=== PATIENT | female | born 1930 | race Caucasian/White ===

== ENCOUNTER 2016-07-27 17:23 | Emergency (ER) | payer MEDICARE ==
[2016-07-27 19:57] LABS: Hematocrit 32 % (35-47); Hemoglobin 10.5 g/dl (12.0-16.0); Mean Corpuscular HGB Conc 33 g/dl (31-36); Mean Corpuscular Hemoglobin 34 pg (27-31); Mean Corpuscular Volume 103 fL (80-97); Mean Platelet Volume 8 um3 (7.4-10.4); Red Blood Count 3.06 10^6/ul (4.0-5.4); Red Cell Distribution Width 17 % (10.5-15); White Blood Count 9.3 10^3/ul (3.5-10.8)
[2016-07-27 20:18] LABS: Albumin 3.9 g/dL (3.2-5.2); BUN/Creatinine Ratio 34.3 (8-20); Calcium 9.4 mg/dL (8.6-10.3); EGFR African American 68.4 (>60); EGFR Non-African American 53.2 (>60); Globulin 2.9 g/dL (2-4); Total Bilirubin 0.9 mg/dL (0.2-1.0); Total Protein 6.8 g/dL (6.4-8.9)
[2016-07-27] MEDS ORDERED: Phytonadione INJ (Adult)* 1 MG in NS 0.9% 50 ML* 50 ML IV ONE (20:25)
--- NOTE | 2016-07-27 21:16 | ED ---
Han Moreno Billy, scribed for Cortez Muñiz MD on 07/27/16 at 1920 . Complex/Multi-Sys Presentation - HPI Summary HPI Summary: Patient is an 85 year-old female coming to [facility] by Dr. Flores for evaluation of an INR of 9.2. She denies any active bleeding at this time. In fact, she denies any pain or symptoms at this time in the ED. She states that she recently switched from Xarelto to Coumadin after a DVT was discovered in her LLE in April 2016. - History Of Current Complaint Chief Complaint: EDGeneral Time Seen by Provider: 07/27/16 19:17 Hx Obtained From: Patient Onset/Duration: Gradual Onset Timing: Constant Severity Currently: Moderate Severity Initially: Moderate Location: Negative Aggravating Factor(s): n/a Alleviating Factor(s): n/a - Allergies/Home Medications Allergies/Adverse Reactions: Allergies Allergy/AdvReac Type Severity Reaction Status Date / Time Nitrofurantoin Allergy Intermediate headaches Verified 06/17/16 16:31 Ciprofloxacin [From Cipro] Allergy Mild STOMACH Verified 06/17/16 16:31 ACHES Metronidazole Allergy Mild STOMACH Verified 06/17/16 16:31 ACHES Benzalkonium Chloride Allergy Unknown Verified 06/17/16 16:31 [From Lumigan] Reaction Details Bimatoprost [From Lumigan] Allergy Unknown Verified 06/17/16 16:31 Reaction Details Lactose Intolerance Allergy GI Upset Verified 06/17/16 16:31 Levofloxacin [From Levaquin] Allergy Unknown Verified 06/17/16 16:31 Reaction Details Sulfa Drugs Allergy Unknown Verified 06/17/16 16:31 Reaction Details PMH/Surg Hx/FS Hx/Imm Hx Endocrine/Hematology History: Reports: Hx Thyroid Disease Cardiovascular History: Reports: Hx Auto Implanted Cardiovert Defib, Hx Congestive Heart Failure - 06/18/16 admission, Hx Hypertension, Hx Pacemaker/ICD , Other Cardiovascular Problems/Disorders - A-fib Respiratory History: Reports: Hx Asthma, Hx Chronic Obstructive Pulmonary Disease (COPD), Hx Pneumonia GI History: Reports: Hx Diverticulosis, Hx Gastroesophageal Reflux Disease, Hx Irritable Bowel Musculoskeletal History: Reports: Hx Back Problems - General aches, Hx Osteoporosis Sensory History: Reports: Hx Cataracts, Hx Contacts or Glasses - PT STATES LEGALLY BLIND, Hx Legally Blind, Hx Deafness, Hx Hearing Aid, Hx Hearing Problem , Other Sensory Impairments - hx retinal detachment Opthamlomology History: Reports: Hx Cataracts, Hx Contacts or Glasses - PT STATES LEGALLY BLIND, Hx Legally Blind, Other Sensory Impairments - hx retinal detachment Neurological History: Reports: Other Neuro Impairments/Disorders - CVA 2005 - Cancer History Cancer Type, Location 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 BREAST BIOPSY x2, c-secton, hysterectomy , ICD, appe - Surgical History Surgery Procedure, Year, and Place: Hysterectomy. skin ca excision nose. Breast bx pt has a [id number]. bunion surgery. cataract surgery Infectious Disease History: No Infectious Disease History: Denies: Traveled Outside the [place] in Last 30 Days - Family History Known Family History: Positive: Cardiac Disease - Social History Alcohol Use: None Substance Use Type: Reports: None Smoking Status (MU): Former Smoker Type: Cigarettes Amount Used/How Often: 1 PPD Length of Time of Smoking/Using Tobacco: 35 Have You Smoked in the Last Year: No Review of Systems Negative: Fever Negative: Chest Pain Negative: Abdominal Pain All Other Systems Reviewed And Are Negative: Yes Physical Exam - Summary Physical Exam Summary: VITAL SIGNS: Reviewed. GENERAL: Patient is a well developed and nourished femalewho is lying comfortable in the stretcher. Patient is not in any acute respiratory distress. HEAD AND FACE: No signs of trauma. No ecchymosis, hematomas or skull depressions. No sinus tenderness. EYES: PERRLA, EOMI x 2, No injected conjunctiva, no nystagmus. EARS: Hearing grossly intact. Ear canals and tympanic membranes are within normal limits. MOUTH: Oropharynx within normal limits. NECK: Supple, trachea is midline, no adenopathy, no JVD, no carotid bruit, no c- spine tenderness, neck with full ROM. CHEST: Symmetric, no tenderness at palpation LUNGS: Clear to auscultation bilaterally. No wheezing or crackles. CVS: Regular rate and rhythm, S1 and S2 present, no murmurs or gallops appreciated. ABDOMEN: Soft, non-tender. No signs of distention. No rebound no guarding, and no masses palpated. Bowel sounds are normal. EXTREMITIES: FROM in all major joints, no edema, no cyanosis or clubbing. NEURO: Alert and oriented x 3. No acute neurological deficits. Speech is normal and follows commands. SKIN: Dry and warm, no ecchymosis, no hematomas, no petechia, no signs of bleeding. Triage Information Reviewed: Yes Vital Signs On Initial Exam: Initial Vitals Temp Pulse Resp BP Pulse Ox 97.9 F 128 20 150/75 98 07/27/16 17:53 07/27/16 17:53 07/27/16 17:53 07/27/16 17:53 07/27/16 17:53 Vital Signs Reviewed: Yes Diagnostics - Vital Signs Vital Signs Temp Pulse Resp BP Pulse Ox 07/27/16 18:45 98.3 F 87 20 154/105 96 07/27/16 17:53 97.9 F 128 20 150/75 98 - Laboratory Result Diagrams: 07/27/16 19:35 07/27/16 19:35 Lab Statement: Any lab studies that have been ordered have been reviewed, and results considered in the medical decision making process. Complex Multi-Symp Course/Dx Assessment/Plan: Patient is an 85 year-old female coming to [facility] by Dr. Flores for evaluation of an INR of 9.2. She denies any active bleeding at this time. In fact, she denies any pain or symptoms at this time in the ED. She states that she recently switched from Xarelto to Coumadin after a DVT was discovered in her LLE in April 2016. Test results shows INR of 9.5, H&H of 10.5/32. I discussed the csae with Dr. Flores and she recommends that the patient be given vitamin K 1 mg IV, and since she does not have any signs of bleeding, ecchymosis, hematomas, the patient will be discharged home to follow up with PCP. She is to follow up tomorrow tih Dr. Flores. She is A&Ox3. She was given instructions to return to the ED if she develops any bleeding sites, ecchymosis, BBPR, epistaxis. She understands and agrees. - Diagnoses Differential Diagnoses/HQI/PQRI: Other - Toxic INR, Ecchymosis, bleeding sites Provider Diagnoses: Elevated INR - Physician Notifications Discussed Care Of Patient With: Dr. Flores (hematology) @ 1925: Discharge - Discharge Plan Condition: Stable Disposition: HOME Patient Education Materials: Elevated INR (ED) Referrals: Glenys Das MD [Primary Care Provider] - Susannah Flores MD [Medical Doctor] - The documentation as recorded by the sunilibHan zavala Billy accurately reflects the service I personally performed and the decisions made by me, Cortez Muñiz MD.
[2016-07-27 21:34] VITALS: BP 190/93
== END 2016-07-27 21:50 | disposition home or self-care (01) ==
LOC: ED 17:23
DX: R79.1 Abnormal coagulation profile (principal); Z88.1 Allergy status to other antibiotic agents; J44.9 Chronic obstructive pulmonary disease, unspecified; J45.909 Unspecified asthma, uncomplicated; K21.9 Gastro-esophageal reflux disease without esophagitis; I50.9 Heart failure, unspecified; Z95.810 Presence of automatic (implantable) cardiac defibrillator; I10 Essential (primary) hypertension; I48.91 Unspecified atrial fibrillation; H54.8 Legal blindness, as defined in USA; Z86.73 Personal history of transient ischemic attack (TIA), and cerebral infarction without residual deficits; Z87.891 Personal history of nicotine dependence; Z79.01 Long term (current) use of anticoagulants; Z86.718 Personal history of other venous thrombosis and embolism
CPT/HCPCS: 36415; 80053; 81003; 85025; 85610; 96360; 99283; J3430

== ENCOUNTER 2016-11-28 07:19 | Observation (INO) | payer MEDICARE ==
[2016-11-28 08:20] LABS: Hematocrit 37 % (35-47); Hemoglobin 12.3 g/dl (12.0-16.0); Mean Corpuscular HGB Conc 33 g/dl (31-36); Mean Corpuscular Hemoglobin 31 pg (27-31); Mean Corpuscular Volume 93 fL (80-97); Mean Platelet Volume 8 um3 (7.4-10.4); Red Blood Count 4.03 10^6/ul (4.0-5.4); Red Cell Distribution Width 16 % (10.5-15); White Blood Count 6.1 10^3/ul (3.5-10.8)
[2016-11-28 08:33] LABS: Albumin 3.7 g/dL (3.2-5.2); BUN/Creatinine Ratio 23.6 (8-20); Calcium 9.3 mg/dL (8.6-10.3); EGFR African American 98.5 (>60); EGFR Non-African American 76.6 (>60); Magnesium 2.2 mg/dL (1.9-2.7); Potassium 3.9 mmol/L (3.5-5.0); Total Protein 7.2 g/dL (6.4-8.9)
[2016-11-28 08:34] LABS: Globulin 3.5 g/dL (2-4); Total Bilirubin 0.5 mg/dL (0.2-1.0); Troponin I 0.02 ng/mL (<0.04)
[2016-11-28] MEDS ORDERED: Labetalol IV* 5 MG/ML 20 ML VIAL IV PUSH ONE (08:44)
--- NOTE | 2016-11-28 08:51 | RAD ---
Indication: Dizziness especially when standing. Scheduled for pacemaker replacement. Congestive heart failure. Atrial fibrillation. COPD. Comparison: June 17, 2016 CT. October 03, 2014 chest radiograph. Technique: Sitting AP and lateral chest views. Report: Elevated lung volumes with increased AP thoracic diameter and flattening of the hemidiaphragms. Coarse interstitial markings with patchy mid to upper lung zone rarefaction. Thickened peripheral interlobular septa and trace fluid in the RIGHT minor fissure. Unchanged bilateral apical pleural-parenchymal scarring. Negative for pneumothorax. RIGHT atrial and RIGHT ventricular level pacemaker leads. Cardiomegaly. Mildly prominent central pulmonary vasculature. IMPRESSION: The constellation of findings is consistent with mild to moderate interstitial edema superimposed on chronic obstructive pulmonary disease.
[2016-11-28 08:59] LABS: TSH (Thyroid Stimulating Horm) 2.86 mcIU/mL (0.34-5.60)
--- NOTE | 2016-11-28 09:14 | RAD ---
INDICATION: Dizziness COMPARISON: CT brain May 31, 2006 TECHNIQUE: Noncontrast axial source images were acquired from the skull base to the vertex. FINDINGS: Ventricles/sulci: There is advanced cortical atrophy with compensatory dilatation of the CSF spaces. Brain parenchyma: There is periventricular and subcortical white matter change compatible with chronic ischemia. Intracranial hemorrhage:None. Extra-axial spaces: There are no abnormal extra axial fluid collections or evidence of extra-axial mass. Calvarium: There is no calvarial fracture or other calvarial abnormality. Scalp: There is no evidence of scalp or extracalvarial soft tissue abnormality. Paranasal sinuses/mastoid: The paranasal sinuses and mastoid air cells are clear. Other: None. IMPRESSION: CORTICAL ATROPHY WITH CHRONIC MICROVASCULAR ISCHEMIC CHANGES. NO ACUTE FINDINGS.
[2016-11-28] MEDS ORDERED: Meclizine TAB* 12.5 MG PO ONE (09:22)
[2016-11-28 09:27] LABS: Urine Bilirubin Negative (Negative); Urine Glucose Negative (Negative); Urine Nitrite Negative (Negative)
[2016-11-28] MEDS ORDERED: Furosemide IV* 10 MG/ML 2 ML VIAL (20 MG) IV ONE ×2 (10:30→11:23)
--- NOTE | 2016-11-28 10:31 | ED ---
Manuel Moreno SooYoung, scribed for Cortez Muñiz MD on 11/28/16 at 0727 . Dizziness - HPI Summary HPI Summary: A 86 y/o F COCO presents to ED with c/o dizziness last night before going to sleep, when she woke up, she had trouble getting up due to the dizziness. Denies CP, SOB, weakness, palpitations different from baseline. She states it doesn't feel like vertigo which she's experienced previously. Pt is legally blind. Pt is scheduled to have a new battery placed in her pacemaker with Dr. Lee this AM at 0830. - History Of Current Complaint Chief Complaint: EDDizziness Stated Complaint: DIZZY Time Seen by Provider: 11/28/16 07:21 Hx Obtained From: Patient Onset/Duration: Still Present Timing: Constant Severity Initially: Moderate Severity Currently: Moderate Character: Dizzy Associated Signs And Symptoms: Negative: Chest Pain, SOB, Palpitations - Allergies/Home Medications Allergies/Adverse Reactions: Allergies Allergy/AdvReac Type Severity Reaction Status Date / Time Nitrofurantoin Allergy Intermediate headaches Verified 06/17/16 16:31 Ciprofloxacin [From Cipro] Allergy Mild STOMACH Verified 06/17/16 16:31 ACHES Metronidazole Allergy Mild STOMACH Verified 06/17/16 16:31 ACHES Benzalkonium Chloride Allergy Unknown Verified 06/17/16 16:31 [From Lumigan] Reaction Details Bimatoprost [From Lumigan] Allergy Unknown Verified 06/17/16 16:31 Reaction Details Brimonidine Allergy Unknown Verified 11/25/16 14:03 Reaction Details Lactose Intolerance Allergy GI Upset Verified 06/17/16 16:31 Levofloxacin [From Levaquin] Allergy Unknown Verified 06/17/16 16:31 Reaction Details Sulfa Drugs Allergy Unknown Verified 06/17/16 16:31 Reaction Details Temazepam [From Restoril] Allergy Unknown Verified 11/25/16 14:03 Reaction Details Tramadol Allergy Unknown Verified 11/25/16 14:03 Reaction Details Amoxicillin AdvReac Intermediate Diarrhea Verified 11/25/16 14:03 Rivaroxaban [From Xarelto] AdvReac See Comment Verified 11/25/16 14:03 Home Medications: Home Medications Timolol 0.5% OPTH.JOSÉ MIGUEL* [Timoptic 0.5% Opth*] 1 drop RIGHT EYE BEDTIME 11/28/16 [ History Confirmed 11/28/16] PMH/Surg Hx/FS Hx/Imm Hx Previously Healthy: No Endocrine/Hematology History: Reports: Hx Thyroid Disease Cardiovascular History: Reports: Hx Auto Implanted Cardiovert Defib, Hx Congestive Heart Failure - 06/18/16 admission, Hx Hypertension, Hx Pacemaker/ICD , Other Cardiovascular Problems/Disorders - A-fib Respiratory History: Reports: Hx Asthma, Hx Chronic Obstructive Pulmonary Disease (COPD), Hx Pneumonia GI History: Reports: Hx Diverticulosis, Hx Gastroesophageal Reflux Disease, Hx Irritable Bowel Musculoskeletal History: Reports: Hx Back Problems - General aches, Hx Osteoporosis Sensory History: Reports: Hx Cataracts, Hx Contacts or Glasses - PT STATES LEGALLY BLIND, Hx Legally Blind, Hx Deafness, Hx Hearing Aid, Hx Hearing Problem , Other Sensory Impairments - hx retinal detachment Opthamlomology History: Reports: Hx Cataracts, Hx Contacts or Glasses - PT STATES LEGALLY BLIND, Hx Legally Blind, Other Sensory Impairments - hx retinal detachment Neurological History: Reports: Other Neuro Impairments/Disorders - CVA 2005 - Cancer History Cancer Type, Location 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 BREAST BIOPSY x2, c-secton, hysterectomy , ICD, appe - Surgical History Surgery Procedure, Year, and Place: Hysterectomy. skin ca excision nose. Breast bx pt has a [id number]. bunion surgery. cataract surgery Infectious Disease History: Denies: Traveled Outside the [place] in Last 30 Days - Family History Known Family History: Positive: None, Cardiac Disease - Social History Occupation: Retired Lives: With Family Alcohol Use: None Hx Substance Use: No Substance Use Type: Reports: None Hx Tobacco Use: Yes Smoking Status (MU): Former Smoker Type: Cigarettes Amount Used/How Often: 1 PPD Length of Time of Smoking/Using Tobacco: 35 Have You Smoked in the Last Year: No Review of Systems Negative: Palpitations, Chest Pain Negative: Shortness Of Breath Neurological: Other - pos: dizziness Negative: Weakness All Other Systems Reviewed And Are Negative: Yes Physical Exam - Summary Physical Exam Summary: VITAL SIGNS: Reviewed. GENERAL: Patient is a well-developed and nourished, female who is lying comfortable in the stretcher. Patient is not in any acute respiratory distress. HEAD AND FACE: No signs of trauma. No ecchymosis, hematomas or skull depressions. No sinus tenderness. EYES: PT IS LEGALLY BLIND EARS: Hearing grossly intact. Ear canals and tympanic membranes are within normal limits. MOUTH: Oropharynx within normal limits. NECK: Supple, trachea is midline, no adenopathy, no JVD, no carotid bruit, no c- spine tenderness, neck with full ROM. No meningeal signs, no Kernig's or Brudzinskis signs. CHEST: Symmetric, no tenderness at palpation LUNGS: Clear to auscultation bilaterally. No wheezing or crackles. CVS: IRREGULAR RHYTHM, RATE CONTROLLED, S1 and S2 present, no murmurs or gallops appreciated. EXTREMITIES: FROM in all major joints, no edema, no cyanosis or clubbing. NEURO: Alert and oriented x 3. No acute neurological deficits. Speech is normal and follows commands. SKIN: Dry and warm Triage Information Reviewed: Yes Vital Signs On Initial Exam: Initial Vitals Temp Pulse Resp BP Pulse Ox 98.2 F 80 20 165/113 91 11/28/16 07:24 11/28/16 07:24 11/28/16 07:24 11/28/16 07:24 11/28/16 07:24 Vital Signs Reviewed: Yes Diagnostics - Vital Signs Vital Signs Temp Pulse Resp BP Pulse Ox 11/28/16 10:00 91 18 93 11/28/16 09:30 96 20 143/93 92 11/28/16 09:03 99 22 85 11/28/16 08:42 87 18 91 11/28/16 08:22 91 171/117 11/28/16 07:41 98.2 F 80 20 165/113 90 11/28/16 07:24 98.2 F 80 20 165/113 91 - Laboratory Lab Results: Lab Results 11/28/16 11/28/16 11/28/16 Range/Units 08:05 08:05 08:05 WBC 6.1 (3.5-10.8) 10^3/ul RBC 4.03 (4.0-5.4) 10^6/ul Hgb 12.3 (12.0-16.0) g/dl Hct 37 (35-47) % MCV 93 (80-97) fL MCH 31 (27-31) pg MCHC 33 (31-36) g/dl RDW 16 H (10.5-15) % Plt Count 189 (150-450) 10^3/ul MPV 8 (7.4-10.4) um3 Neut % (Auto) 68.5 (38-83) % Lymph % (Auto) 19.5 L (25-47) % Mcmullen % (Auto) 10.5 H (1-9) % Eos % (Auto) 0.9 (0-6) % Baso % (Auto) 0.6 (0-2) % Absolute Neuts (auto) 4.2 (1.5-7.7) 10^3/ul Absolute Lymphs (auto) 1.2 (1.0-4.8) 10^3/ul Absolute Monos (auto) 0.6 (0-0.8) 10^3/ul Absolute Eos (auto) 0.1 (0-0.6) 10^3/ul Absolute Basos (auto) 0 (0-0.2) 10^3/ul Absolute Nucleated RBC 0.01 10^3/ul Nucleated RBC % 0.2 INR (Anticoag Therapy) (0.89-1.11) Sodium 139 (133-145) mmol/L Potassium 3.9 (3.5-5.0) mmol/L Chloride 108 (101-111) mmol/L Carbon Dioxide 27 (22-32) mmol/L Anion Gap 4 (2-11) mmol/L BUN 17 (6-24) mg/dL Creatinine 0.72 (0.51-0.95) mg/dL Est GFR ( Amer) 98.5 (>60) Est GFR (Non-Af Amer) 76.6 (>60) BUN/Creatinine Ratio 23.6 H (8-20) Glucose 103 H (70-100) mg/dL Lactic Acid 0.7 (0.5-2.0) mmol/L Calcium 9.3 (8.6-10.3) mg/dL Magnesium 2.2 (1.9-2.7) mg/dL Total Bilirubin 0.50 (0.2-1.0) mg/dL AST 19 (13-39) U/L ALT 14 (7-52) U/L Alkaline Phosphatase 69 (34-104) U/L Troponin I 0.02 (<0.04) ng/mL B-Natriuretic Peptide ( - 100) pg/mL Total Protein 7.2 (6.4-8.9) g/dL Albumin 3.7 (3.2-5.2) g/dL Globulin 3.5 (2-4) g/dL Albumin/Globulin Ratio 1.1 (1-3) TSH 2.86 (0.34-5.60) mcIU/mL Urine Color Urine Appearance Urine pH (5-9) Ur Specific [place] (1.010-1.030) Urine Protein (Negative) Urine Ketones (Negative) Urine Blood (Negative) Urine Nitrate (Negative) Urine Bilirubin (Negative) Urine Urobilinogen (Negative) Ur Leukocyte Esterase (Negative) Urine Glucose (Negative) 11/28/16 11/28/16 11/28/16 Range/Units 08:05 08:05 09:14 WBC (3.5-10.8) 10^3/ul RBC (4.0-5.4) 10^6/ul Hgb (12.0-16.0) g/dl Hct (35-47) % MCV (80-97) fL MCH (27-31) pg MCHC (31-36) g/dl RDW (10.5-15) % Plt Count (150-450) 10^3/ul MPV (7.4-10.4) um3 Neut % (Auto) (38-83) % Lymph % (Auto) (25-47) % Mcmullen % (Auto) (1-9) % Eos % (Auto) (0-6) % Baso % (Auto) (0-2) % Absolute Neuts (auto) (1.5-7.7) 10^3/ul Absolute Lymphs (auto) (1.0-4.8) 10^3/ul Absolute Monos (auto) (0-0.8) 10^3/ul Absolute Eos (auto) (0-0.6) 10^3/ul Absolute Basos (auto) (0-0.2) 10^3/ul Absolute Nucleated RBC 10^3/ul Nucleated RBC % INR (Anticoag Therapy) 2.63 H (0.89-1.11) Sodium (133-145) mmol/L Potassium (3.5-5.0) mmol/L Chloride (101-111) mmol/L Carbon Dioxide (22-32) mmol/L Anion Gap (2-11) mmol/L BUN (6-24) mg/dL Creatinine (0.51-0.95) mg/dL Est GFR ( Amer) (>60) Est GFR (Non-Af Amer) (>60) BUN/Creatinine Ratio (8-20) Glucose (70-100) mg/dL Lactic Acid (0.5-2.0) mmol/L Calcium (8.6-10.3) mg/dL Magnesium (1.9-2.7) mg/dL Total Bilirubin (0.2-1.0) mg/dL AST (13-39) U/L ALT (7-52) U/L Alkaline Phosphatase (34-104) U/L Troponin I (<0.04) ng/mL B-Natriuretic Peptide 410 H ( - 100) pg/mL Total Protein (6.4-8.9) g/dL Albumin (3.2-5.2) g/dL Globulin (2-4) g/dL Albumin/Globulin Ratio (1-3) TSH (0.34-5.60) mcIU/mL Urine Color Straw Urine Appearance Clear Urine pH 7.0 (5-9) Ur Specific [place] 1.008 L (1.010-1.030) Urine Protein Negative (Negative) Urine Ketones Negative (Negative) Urine Blood Negative (Negative) Urine Nitrate Negative (Negative) Urine Bilirubin Negative (Negative) Urine Urobilinogen Negative (Negative) Ur Leukocyte Esterase Negative (Negative) Urine Glucose Negative (Negative) Result Diagrams: 11/28/16 08:05 11/28/16 08:05 Lab Statement: Any lab studies that have been ordered have been reviewed, and results considered in the medical decision making process. - Radiology CXR Xray Interpretation: No Acute Changes - IMPRESSION: The constellation of findings is consistent with mild to moderate interstitial edema superimposed on chronic obstructive pulmonary disease. Radiology Interpretation Completed By: Radiologist - CT BRAIN CT CT Interpretation: No Acute Changes - IMPRESSION: CORTICAL ATROPHY WITH CHRONIC MICROVASCULAR ISCHEMIC CHANGES. NO ACUTE FINDINGS. CT Interpretation Completed By: Radiologist - EKG 1 Cardiac Rate: NL - 94 bpm EKG Rhythm: Atrial Fibrillation EKG Interpretation: read at 0726 EKG Comparison: No Significant Change - unchanged from 06/19/16 Dizzy Course/Dx - Course Assessment/Plan: A 86 y/o F BIBA presents to ED with c/o dizziness last night before going to sleep, when she woke up, she had trouble getting up due to the dizziness. Denies CP, SOB, weakness, palpitations different from baseline. She states it doesn't feel like vertigo which she's experienced previously. Pt is legally blind. Pt is scheduled to have a new battery placed in her pacemaker with Dr. Lee this AM at 0830. Blood work was WNL except slightly elevated glucose and BNP. UA shows no UTI. Head CT shows no intracranial pathology. CXR shows slight interstitial edema. BNP is slightly elevated. She was given Lasix. In ED, pt was hypertensive, pt given Labetalol. Orthostsatics are negative, however, when pt tries to get up, pt continues to have same symptoms. Pt was unable to ambulate, therefore discussed PE and findings with Dr. Jenkins, hospitalist, who accepted pt for admission. Pt is hemodynamically stable and A& Ox3. - Diagnoses Provider Diagnoses: CHF (congestive heart failure), intractable dizziness - Provider Notifications Discussed Care Of Patient With: Dr. Lee - cardio Time Discussed With Above Provider: 08:00 Instructed by Provider To: Other - do work-up, if nml, send for battery replacement Discharge - Discharge Plan Condition: Stable Disposition: ADMITTED TO [facility] Referrals: Glenys Das MD [Primary Care Provider] - Consult Consult: [phone]: Spoke to Dr. Jenkins, hospitalist Will accept for admission. The documentation as recorded by the Manuel traylor SooYoung accurately reflects the service I personally performed and the decisions made by me, Cortez Muñiz MD.
[2016-11-28] MEDS: Diltiazem CD CAP* 180 MG PO SCH (10:55)
[2016-11-28] MEDS ORDERED: Acetaminophen TAB* 325 MG PO PRN (11:03)
[2016-11-28] MEDS ORDERED: NS 0.9% 1000 ML* 1,000 ML IV SCH (11:15)
[2016-11-28] MEDS: Meclizine TAB* 12.5 MG PO SCH ×2 (12:20→21:04)
--- NOTE | 2016-11-28 15:13 | ECHO ---
Patient: SHERIF BALLESTEROS [facility] Rec#: [id number] : 1930 Date: 11/28/2016 Age: 86y Height: 157.5 cm / 62.0 in Weight: 53.1 kg / 117.0 lbs Sex: F BSA: 1.5 Room#: 433 Admit Date#: 11/28/2016 Type: Inpatient Referring: Theresa Jenkins MD Reading: Golden Lee MD [employer] Feeder: Elizabeth Kc RN RDCS CC: SADIQ MCCLENDON CC: Vijay Paula MD Transthoracic Echocardiogram Indication: CHF BP: 143/93 HR: 80 Rhythm: A-Fib Findings History: Afib, pacemaker, HTN, HLD, DVT, CVA, COPD Technical Comments: The study quality is fair. The study is technically limited due to the patient's history of COPD. Completed at 1455. Left Ventricle: The left ventricular chamber size is normal. Mild concentric left ventricular hypertrophy is observed. There is global hypokinesis of the left ventricle with minor regional variation. There is mildly decreased left ventricular systolic function. The estimated ejection fraction is 45-50%. There is a left ventricular septal wall motion abnormality observed, possibly due to the presence of a left bundle branch block. There is no consistent Doppler evidence of clinically significant diastolic dysfunction. Left Atrium: The left atrium is mildly dilated. Right Ventricle: The right ventricular cavity size is normal. The right ventricular global systolic function is normal. A pacemaker wire is visualized in the right ventricle. Right Atrium: The right atrial cavity size is normal. A pacemaker wire is visualized in the right atrium. Aortic Valve: The aortic valve is trileaflet. The aortic valve leaflets are mildly thickened. There is moderate thickening of the right coronary cusp. Systolic excursion of the right coronary cusp is reduced. There is no evidence of aortic regurgitation. There is mild to moderate aortic stenosis. The mean gradient of the aortic valve is 8 mmHg. The aortic valve area, by peak velocities, is calculated at 1.1 cm2. Mitral Valve: The mitral valve leaflets are mildly thickened. There is trace to mild mitral regurgitation. There is no evidence of mitral stenosis. Tricuspid Valve: The tricuspid valve leaflets are normal. There is trace to mild tricuspid regurgitation. No pulmonary hypertension is noted. Pulmonic Valve: The pulmonic valve structure is not well visualized. There is mild pulmonic regurgitation. There is no pulmonic stenosis. Pericardium: There is no significant pericardial effusion. A pericardial fat pad is visualized. Aorta: There is no dilatation of the ascending aorta. There is no dilatation of the aortic arch. There is no dilation of the aortic root. Pulmonary Artery: The main pulmonary artery is not well visualized. Venous: The inferior vena cava appears normal in size. There is a greater than 50% respiratory change in the inferior vena cava dimension. Summary: There are no significant changes when compared to the previous study done on 06/21/16 Conclusions Mild concentric left ventricular hypertrophy is observed. There is global hypokinesis of the left ventricle with minor regional variation. The estimated ejection fraction is 45-50%. There is a left ventricular septal wall motion abnormality observed, possibly due to the presence of a left bundle branch block. A pacemaker wire is visualized in the right ventricle. The aortic valve leaflets are mildly thickened. There is mild to moderate aortic stenosis. The mean gradient of the aortic valve is 8 mmHg. There is trace to mild mitral regurgitation. There is trace to mild tricuspid regurgitation. There is no significant pericardial effusion. Measurements Name Value Normal Range RVDdMajor (2D) 3.4 cm (2.2 - 4.4) RAd ISD 4CH 4.9 cm (3.4 - 4.9) RA (A4C)W 4 cm (2.9 - 4.6) IVSd (2D) 1.2 cm (0.6 - 1) LVPWd (2D) 1.1 cm (0.6 - 1) LVIDd (2D) 3.7 cm (3.6 - 5.4) LVIDs (2D) 2.3 cm - LV FS (2D) 38 % (25 - 45) Aortic Annulus 2 cm (1.4 - 2.6) Ao root diameter (2D) 2.8 cm (2.1 - 3.5) Ascending Ao 2.8 cm (2.1 - 3.4) Aortic arch 2 cm (1.8 - 3.4) LA dimension (AP) 2D 3.2 cm (2.3 - 3.8) LAd ISD 4CH 5.4 cm (2.9 - 5.3) LA ISD 4CH W 4 cm (2.5 - 4.5) Name Value Normal Range LA ESV SP 4CH (A/L) 45 ml - LA ESV SP 2CH (A/L) 42 ml - LA ESV BP (A/L) 45 ml - LA ESV BP (A/L) index 29.8 ml/m2 - LA ESV SP 4CH (MOD) 42 ml - LA ESV SP 2CH (MOD) 40.5 ml - Name Value Normal Range MV E-wave Vmax 0.84 m/sec - MV deceleration time 192 msec - LV septal e' Vmax 0.05 m/sec - LV lateral e' Vmax 0.07 m/sec - LV E:e' septal ratio 16.8 ratio - LV E:e' lateral ratio 12 ratio - Name Value Normal Range AV Vmax 1.8 m/sec - AV VTI 33.4 cm - AV peak gradient 13 mmHg - AV mean gradient 8 mmHg - LVOT diameter 1.9 cm - LVOT Vmax 0.69 m/sec - LVOT VTI 11.8 cm - LVOT peak gradient 2 mmHg - LVOT mean gradient 1 mmHg - DOI (VTI) 0.35 ratio - DOI (Vmax) 0.38 ratio - FRANKY (continuity Vmax) 1.1 cm2 - FRANKY (continuity VTI) 1 cm2 - JANENE Vmax 0.75 m/sec - Name Value Normal Range TR Vmax 2.4 m/sec - TR peak gradient 23 mmHg - RAP 3 mmHg - RVSP 26 mmHg - IVC diameter 1.4 cm - Name Value Normal Range PV Vmax 0.75 m/sec -
--- NOTE | 2016-11-28 16:00 | HP ---
HISTORY AND PHYSICAL:* ADDENDUM: DATE OF ADMISSION: 11/28/16 Please note that after discussing possibility of stress test with the patient, the patient stated that she had a recent stress test within the past 2 to [address] Lee's office. We are in the process of requesting the stress test results, but as per the patient, it was "good." At this point, we will not plan to get the patient through a stress test tomorrow. [id number]/[facility] #: [id number] ISHAN
--- NOTE | 2016-11-28 16:41 | HP ---
ADDENDUM NOW INCLUDED ON THIS REPORT HISTORY AND PHYSICAL: DATE OF ADMISSION: 11/28/16 PRIMARY CARE PHYSICIAN: Dr. Das. CHIEF COMPLAINT: Dizziness. HISTORY OF PRESENT ILLNESS: Betty Holloway is an 86-year-old female with a history of atrial fibrillation, status post pacemaker placement, on Coumadin as well as with a history of DVT, who also has a history of benign positional vertigo, who presented today complaining of dizziness and generalized weakness. The patient stated that she felt dizzy last night, and today in the middle of the night, she was dizzy to the point that she was too weak to get up to go to the bathroom and her had to carry her. The patient is very nonspecific in describing her "dizziness." She stated that it occurs only when she moves or stands up and it is worse with movement. She stated that the room is not spinning, but she feels lightheaded. When she presented to the ED, she was hypertensive with systolic blood pressure in the 180s. Nevertheless, she still continued to experience dizziness. She did not have lower blood pressure when standing up or sitting up that would be positive for orthostasis. She is going to be placed in overnight observation with diagnosis of dizziness. PAST MEDICAL HISTORY: 1. History of CVA in 2016 with no residual deficits. 2. The patient is legally blind, and she can see her arm and her vision is very blurry. 3. Hypertension. 4. DVT. 5. History of atrial fibrillation as well as status post pacemaker placement. 6. Dyslipidemia. 7. Hypothyroidism. 8. Pulmonary nodules, followed by Pulmonology. 9. History of benign breast biopsy. 10. Hysterectomy. 11. Appendectomy. 12. History of COPD, not on oxygen. 13. History of retinal detachment in the right eye. 14. History of glaucoma. 15. History of patient being hard of hearing. She uses hearing aids. MEDICATIONS: Patient's home medications include: 1. Coumadin 7.5 mg alternating with 5 mg. 2. inhalation, 1 inhalation daily. 3. Timolol eye drops 0.5% one drop right eye at bedtime. 4. Simvastatin 20 mg daily. 5. Probiotics 4 daily. 6. Dulera 200/5 two puffs b.i.d. 7. Levothyroxine 50 mcg daily. 8. Lactaid 1 tablet daily. 9. Lexapro 5 mg daily. 10. Diltiazem XT 180 mg daily. 11. Refresh Tears 1 to 2 drops both eyes p.r.n. 12. Atenolol 25 mg b.i.d. ALLERGIES: Include NITROFURANTOIN, CIPROFLOXACIN, METRONIDAZOLE, BENZALKONIUM CHLORIDE, LUMIGAN EYE DROPS, BRIMONIDINE, LEVOFLOXACIN, SULFA, TEMAZEPAM, TRAMADOL, AMOXICILLIN, XARELTO. FAMILY HISTORY: Positive for father who at a young age after a surgery for appendicitis. Mother of "old age." SOCIAL HISTORY: The patient denies any current tobacco, alcohol, or drug use. She lives with her who is her surrogate. 's first name is Raúl. The patient ambulates without support at home, and she holds onto her when she walks outside of home. REVIEW OF SYSTEMS: Please see history of present illness. The patient also noted that she had been incontinent of urine for the past 2 weeks. She denies any headache. She denies any localized focal weakness. Her speech had been fine. She has not had any recent trauma. All the remaining 14 systems were reviewed with the patient and were otherwise negative. Please note that the patient was scheduled to have her pacemaker battery replaced today with Dr. Lee, which is going to be postponed due to the current hospitalization for observation. PHYSICAL EXAMINATION GENERAL: The patient is a very pleasant 86-year-old female, who is in no acute distress. Alert, awake, and oriented x3. VITAL SIGNS: Blood pressure 143/93, heart rate of 89 and paced rhythm, respiratory rate 18, oxygen saturation 93% on room air, and temperature of 98.2. HEENT: Head is atraumatic, normocephalic. Eyes: Pupils equal and reactive to light and accommodation. Oropharynx clear. Mucosa moist. On evaluation of the patient's ears, bilateral tympanic membranes were visualized and there were no abnormalities noted. NECK: Supple. No JVD. No bruits bilaterally. RESPIRATORY: Clear to auscultation bilaterally. CARDIOVASCULAR: Irregularly irregular rhythm. No murmur. ABDOMEN: Soft, nontender. Bowel sounds present in all 4 quadrants. EXTREMITIES: There is no edema. Pulses +2 bilaterally. No clubbing or cyanosis. There is no calf tenderness on evaluation. NEUROLOGIC: Speech clear. Cranial nerves II through XII grossly intact. Motor strength is 5/5 bilaterally. The [id number] is not dysmetric. The patient has a steady gait. She is holding on to me while walking though. The gait is rather wide. There is no ataxia noted. PSYCHIATRIC: Oriented x3 with no evidence of anxiety or depression. LABORATORY DATA: Showed urinalysis is unremarkable. White blood cell count 6.1, hemoglobin 12.3, hematocrit of 37, and platelets of 189. Sodium 139, potassium 3.9, chloride 108, carbon dioxide 27, BUN of 17, creatinine 0.72. Liver function tests were unremarkable. Troponin of 0.02. TSH of 2.8. Brain natriuretic peptide was 410. INR of 2.6. CT of the brain. Impression: "atrophy with microvascular ischemic changes. No active findings." Chest x-ray. Impression: "The patient's findings consistent with mild-to- moderate interstitial edema, superimposed on chronic obstructive pulmonary disease." The patient's EKG showed atrial fibrillation with a heart rate of 94 beats per minute with left bundle-branch block. The left bundle-branch block is new comparing with prior EKGs. The patient's troponin was 0.02 and brain natriuretic peptide was 510. ASSESSMENT AND PLAN: An 86-year-old female with a history of atrial fibrillation, status post pacemaker placement that is due for replacement. The patient presents with dizziness. She also was noted to desaturate with oxygen levels at 88 when lying down, that improves when she sits up. She herself does not complain of chest pain or shortness of breath. On further discussion about that, the patient did note that she was taking Lasix up to a month and a half ago when Dr. Das discontinued it and recommended compression stockings for the patient. At this point, the patient appears to be in mild congestive heart failure. She already received 20 mg of IV Lasix in the ED and she is going to receive another 20 mg now. She is going to be placed on meclizine on a p.r.n. basis for the dizziness, although dizziness may be a symptom of congestive heart failure. In regards to the patient's left bundle-branch block, which is new. Currently the patient denies any problems with chest pain. I will observe her, check another troponin. If she is hemodynamically stable and feeling better, she most likely should undergo a cardiac stress in the morning. In regards to her atrial fibrillation, currently is rate controlled with atenolol and Cardizem is going to be continued. For the patient's hypothyroidism, her Synthroid is going to be continued. The patient's TSH was noted to be 2.86 today. In regards to the patient's chronic obstructive pulmonary disease exacerbation, Dulera is going to be continued. For DVT prophylaxis, the patient is going to be continued on her Coumadin. INR is currently therapeutic. In regards to the patient's code status, the patient is a full code. TIME SPENT: Approximately 75 minutes were spent on admission of this patient, more than half that time was spent [id number] with the patient during the interview and physical exam. ADDENDUM: DATE OF ADMISSION: 11/28/16 Please note that after discussing possibility of stress test with the patient, the patient stated that she had a recent stress test within the past 2 to [address] Lee's office. We are in the process of requesting the stress test results, but as per the patient, it was "good." At this point, we will not plan to get the patient through a stress test tomorrow. CC: Dr. Das; Dr. Lee; Dr. Flores * [id number]/[facility] #: [id number]/[facility] #: [id number] ISHAN
[2016-11-28] MEDS ORDERED: Warfarin TAB(*) 5 MG PO SCH (17:00)
[2016-11-28] MEDS ORDERED: Atorvastatin* 10 MG TAB PO SCH (18:00)
[2016-11-28] MEDS: Mometasone/Formoter 200/5 MDI INH SCH (19:53)
[2016-11-28] MEDS ORDERED: Timolol 0.5% OPTH.SOL* BTL RIGHT EYE SCH (21:00)
[2016-11-28] MEDS: Atenolol TAB* 25 MG PO SCH (21:03)
[2016-11-29 05:22] LABS: Hematocrit 37 % (35-47); Hemoglobin 12.2 g/dl (12.0-16.0); Mean Corpuscular HGB Conc 33 g/dl (31-36); Mean Corpuscular Hemoglobin 31 pg (27-31); Mean Corpuscular Volume 92 fL (80-97); Mean Platelet Volume 8 um3 (7.4-10.4); Red Blood Count 3.98 10^6/ul (4.0-5.4); Red Cell Distribution Width 16 % (10.5-15); White Blood Count 6.2 10^3/ul (3.5-10.8)
[2016-11-29] MEDS: Meclizine TAB* 12.5 MG PO SCH (05:23)
[2016-11-29 05:37] LABS: BUN/Creatinine Ratio 20.3 (8-20); Calcium 9.2 mg/dL (8.6-10.3); EGFR African American 95.5 (>60); EGFR Non-African American 74.2 (>60); Potassium 3.2 mmol/L (3.5-5.0)
[2016-11-29] MEDS ORDERED: Levothyroxine TAB* 50 MCG TAB PO SCH (06:00)
[2016-11-29] MEDS ORDERED: Potassium Chlor TAB* 20 MEQ TAB.ER PO ONE (07:30)
[2016-11-29] MEDS: Diltiazem CD CAP* 180 MG PO SCH (07:53)
[2016-11-29] MEDS: Atenolol TAB* 25 MG PO SCH (07:54)
[2016-11-29] MEDS: Mometasone/Formoter 200/5 MDI INH SCH (08:51)
[2016-11-29] MEDS ORDERED: Citalopram TAB* 10 MG PO SCH (09:00)
--- NOTE | 2016-11-29 12:52 | DS ---
CC: Dr. Das * DATE OF ADMISSION: 11/28/2016. DATE OF DISCHARGE: 11/29/2016. PRIMARY CARE PHYSICIAN: Dr. Das. DISCHARGING PROVIDER: GWEN Zavala. SUPERVISING PHYSICIAN: Dr. Theresa Jenkins *(dictated by GWEN Zavala). PRIMARY DISCHARGE DIAGNOSIS: Acute systolic heart failure exacerbation causing hypoxia and complaints of dizziness. SECONDARY DISCHARGE DIAGNOSES: 1. History of CVA. 2. Blindness. 3. Difficulty hearing. 4. Hypertension. 5. History of DVT. 6. Atrial fibrillation anticoagulated with Coumadin and a pacemaker in place. 7. Hyperlipidemia. 8. Hypothyroidism. DISCHARGE MEDICATIONS: 1. Atenolol 25 mg p.o. twice daily. 2. Diltiazem 180 mg p.o. daily. 3. Lexapro 5 mg p.o. daily. 4. Lasix 20 mg p.o. daily. 5. Lactase 3000 unit tablets taken prior to eating dairy products as needed. 6. Levothyroxine 50 mcg p.o. daily. 7. Dulera one puff inhaled twice daily. 8. Probiotic 4 mg p.o. daily. 9. Simvastatin 20 mg p.o. daily. 10. Timolol one drop in the right eye at bedtime. 11. Spiriva one capsule inhaled daily. 12. Coumadin 5 mg on Monday, Monday, , and Monday, and 7.5 on Monday , Monday and Monday. Medication changes: 1. Start Lasix. HOSPITAL IMAGIN. Chest x-ray shows constellation of findings consistent with mild to moderate interstitial edema superimposed on chronic obstructive pulmonary disease. 2. CT of the brain shows cortical atrophy with chronic microvascular ischemic changes, no other acute findings. 3. EKG shows atrial fibrillation with a left bundle branch block. 4. Transthoracic echocardiogram shows mild LVH with left ventricular ejection fraction of 45 to 50 percent and mild to moderate aortic stenosis. HOSPITAL COURSE: This is an 86-year-old female with a remote history of prior CVA without significant residual deficit, but legal blindness and significant difficulty hearing as well as hypertension and atrial fibrillation for which she is anticoagulated with Coumadin, hyperlipidemia, and hypothyroidism who presented to the emergency department with complaints of dizziness. The patient started feeling mildly dizzy on Monday evening, which is the day prior to admission, but then awoke her in the middle of the night feeling acutely dizzy on the date of admission. She had a difficult time describing her dizziness and it seemed to be that is was worse with moving. She describes that the room was not spinning, she simply felt lightheaded. She does have a history of vertigo and reported that these symptoms were different than her prior vertigo symptoms. Orthostatic vital signs were negative in the emergency department. Initial labs were unremarkable. CT of the brain showed no acute process. Chest x-ray, however, showed some interstitial edema and it was noted that the patient was hypoxic upon lying flat and it did seem to exacerbate her complaints of dizziness. She was subsequently admitted for what was considered to be likely a mild CHF exacerbation inducing hypoxia and subsequent complaints of dizziness. The patient was diuresed with IV Lasix. Starting several hours later, the patient noted improvement in her dizziness and remained asymptomatic overnight. Continuous telemetry monitoring demonstrated persistent A-fib, no other dysrhythmias. DISPOSITION AND FOLLOW-UP PLAN: The patient is being discharge to home where she lives with her . The patient is instructed to resume Lasix. This apparently had been discontinued about a month ago and to please follow-up with her primary care provider within a week of discharge. Also, she was provided instructions to please monitor her weight and contact her primary care provider with a change of greater than three pounds in a day or five pounds in a week. She was also scheduled for a generator change on her pacemaker with Dr. Lee for the day of admission. Dr. Lee reviewed her EKG and felt that the pacer was working appropriately and this can be rescheduled on an outpatient basis. GWEN ZAVALA [id number]/[facility] #: [id number] [facility]ENTERAidan
[2016-11-29 12:56] VITALS: BP 143/73
[2016-11-29] MEDS ORDERED: Warfarin TAB(*) 7.5 MG PO SCH (17:00)
== END 2016-11-29 14:10 | disposition home or self-care (01) ==
LOC: ED 07:19 → MEDTELE 09:33
PROVIDERS: ADMIT Internal Medicine; ATTEND Internal Medicine
DX: I50.21 Acute systolic (congestive) heart failure (principal); R09.02 Hypoxemia; H54.0 Blindness, both eyes; Z86.73 Personal history of transient ischemic attack (TIA), and cerebral infarction without residual deficits; H90.0 Conductive hearing loss, bilateral; I10 Essential (primary) hypertension; R42 Dizziness and giddiness; Z86.718 Personal history of other venous thrombosis and embolism; I48.91 Unspecified atrial fibrillation; Z79.01 Long term (current) use of anticoagulants; Z95.0 Presence of cardiac pacemaker; E78.5 Hyperlipidemia, unspecified; E03.9 Hypothyroidism, unspecified
CPT/HCPCS: 36415; 70450; 71020; 80048; 80053; 81003; 83605; 83735; 83880; 84443; 84484; 85025; 85610; 93005; 93306; 94640; 96365; 99284; A9270-GY; G0378; G8978-GP-CI; G8979-GP-CH; G8980-GP-CI; J1940

== ENCOUNTER 2017-05-29 14:51 | Inpatient (IN) | payer MEDICARE ==
[2017-05-29] MEDS ORDERED: Morphine INJ* 4 MG/ML 1 ML CARPUJECT IV ONE ×2 (15:58→16:33)
[2017-05-29] MEDS ORDERED: Ondansetron INJ* 2 MG/ML VIAL IV ONE (15:58)
[2017-05-29 16:11] LABS: Hematocrit 33 % (35-47); Hemoglobin 10.9 g/dl (12.0-16.0); Mean Corpuscular HGB Conc 33 g/dl (31-36); Mean Corpuscular Hemoglobin 31 pg (27-31); Mean Corpuscular Volume 93 fL (80-97); Mean Platelet Volume 7 um3 (7.4-10.4); Red Blood Count 3.52 10^6/ul (4.0-5.4); Red Cell Distribution Width 17 % (10.5-15); White Blood Count 9.5 10^3/ul (3.5-10.8)
[2017-05-29 16:30] LABS: Albumin 3.5 g/dL (3.2-5.2); BUN/Creatinine Ratio 19.7 (8-20); Calcium 8.9 mg/dL (8.6-10.3); EGFR African American 108.9 (>60); EGFR Non-African American 84.7 (>60); Globulin 3.6 g/dL (2-4); Magnesium 1.9 mg/dL (1.9-2.7); Potassium 3.2 mmol/L (3.5-5.0); Total Bilirubin 0.8 mg/dL (0.2-1.0); Total Protein 7.1 g/dL (6.4-8.9)
[2017-05-29] MEDS ORDERED: Potassium Chloride LIQUID* 20 MEQ PACKET PO ONE (16:34)
[2017-05-29] MEDS ORDERED: Morphine INJ* 4 MG/ML 1 ML CARPUJECT ONE (16:37)
[2017-05-29] MEDS ORDERED: LORazepam INJ* 2 MG/ML 1 ML VIAL IV PUSH ONE (17:07)
--- NOTE | 2017-05-29 17:26 | ED ---
Zhao Moreno Thomas, scribed for Emily Sanchez MD on 05/29/17 at 1558 . Back Pain - HPI Summary HPI Summary: The patient is an 86 y/o female referred to the emergency by Dr. Flores after an outpatient Urogram CT obtained on 05/29/17 shows new mild compression deformity of T12. The patient complains of mid back pain with onset 10 days ago. The pain is constant. The pain is rated 10/10. The pain is aggravated by movement and is alleviated by nothing. The patient has treated the pain with acetaminophen prior to arrival. The patient did not fall. Her last BM was yesterday when she was given an enema. Patient denies pleuritic CP, SOB, and bladder or bowel incontinence. - History of Current Complaint Chief Complaint: EDGeneral Stated Complaint: COMNPRESSION FX,UTI,SHORTNESS OF BREATH Time Seen by Provider: 05/29/17 15:07 Hx Obtained From: Patient Onset/Duration: Lasting Days - 10, Still Present, Worse Since - CT obtained today Onset/Duration: Still Present Back Pain Location: Is Discrete @ - mid back Severity Currently: Severe Pain Intensity: 10 Pain Scale Used: 0-10 Numeric Aggravating Symptom(s): Movement Alleviating Symptom(s): Nothing Associated Signs And Symptoms: Negative: Other - pleuritic CP, SOB, and bladder or bowel incontinence - Allergies/Home Medications Allergies/Adverse Reactions: Allergies Allergy/AdvReac Type Severity Reaction Status Date / Time Nitrofurantoin Allergy Intermediate headaches Verified 06/17/16 16:31 Ciprofloxacin [From Cipro] Allergy Mild STOMACH Verified 06/17/16 16:31 ACHES Metronidazole Allergy Mild STOMACH Verified 06/17/16 16:31 ACHES Benzalkonium Chloride Allergy Unknown Verified 06/17/16 16:31 [From Lumigan] Reaction Details Bimatoprost [From Lumigan] Allergy Unknown Verified 06/17/16 16:31 Reaction Details Brimonidine Allergy Unknown Verified 11/25/16 14:03 Reaction Details Lactose Intolerance Allergy GI Upset Verified 06/17/16 16:31 Levofloxacin [From Levaquin] Allergy Unknown Verified 06/17/16 16:31 Reaction Details Sulfa Drugs Allergy Unknown Verified 06/17/16 16:31 Reaction Details Temazepam [From Restoril] Allergy Unknown Verified 11/25/16 14:03 Reaction Details Tramadol Allergy Unknown Verified 11/25/16 14:03 Reaction Details Amoxicillin AdvReac Intermediate Diarrhea Verified 11/25/16 14:03 Rivaroxaban [From Xarelto] AdvReac See Comment Verified 11/25/16 14:03 PMH/Surg Hx/FS Hx/Imm Hx Previously Healthy: No Endocrine/Hematology History: Reports: Hx Thyroid Disease Cardiovascular History: Reports: Hx Atrial Fibrillation, Hx Auto Implanted Cardiovert Defib, Hx Congestive Heart Failure, Hx Hypertension, Hx Pacemaker/ICD , Other Cardiovascular Problems/Disorders - A-fib Respiratory History: Reports: Hx Asthma, Hx Chronic Obstructive Pulmonary Disease (COPD), Hx Pneumonia GI History: Reports: Hx Diverticulosis, Hx Gastroesophageal Reflux Disease, Hx Irritable Bowel Musculoskeletal History: Reports: Hx Back Problems - General aches, Hx Osteoporosis Sensory History: Reports: Hx Cataracts, Hx Contacts or Glasses, Hx Legally Blind , Hx Vision Problem, Hx Deafness, Hx Hearing Aid, Hx Hearing Problem, Other Sensory Impairments - hx retinal detachment Opthamlomology History: Reports: Hx Cataracts, Hx Contacts or Glasses, Hx Legally Blind, Hx Vision Problem, Other Sensory Impairments - hx retinal detachment Neurological History: Reports: Other Neuro Impairments/Disorders - CVA 2005 - Cancer History Cancer Type, Location 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 BREAST BIOPSY x2, c-secton, hysterectomy , ICD, appe - Surgical History Surgery Procedure, Year, and Place: Hysterectomy. skin ca excision nose. Breast bx pt has a [id number]. bunion surgery. cataract surgery Infectious Disease History: No Infectious Disease History: Denies: Traveled Outside the [place] in Last 30 Days - Family History Known Family History: Positive: Cardiac Disease - Social History Lives: With Family Alcohol Use: Daily Alcohol Amount: With dinner, 2-3 oz Hx Substance Use: No Substance Use Type: Reports: None Hx Tobacco Use: Yes Smoking Status (MU): Former Smoker Type: Cigarettes Amount Used/How Often: 1 PPD Length of Time of Smoking/Using Tobacco: 35 Have You Smoked in the Last Year: No Review of Systems Negative: Chest Pain - pleuritic Negative: Shortness Of Breath Negative: Other - bowel incontinence Negative: incontinence Positive: Other - Mid back pain All Other Systems Reviewed And Are Negative: Yes Physical Exam - Summary Physical Exam Summary: VITAL SIGNS: Reviewed. GENERAL: Patient is an elderly legally blind and hard of hearing female who is lying in the stretcher. Patient is not in any acute respiratory distress. HEAD AND FACE: No signs of trauma. No ecchymosis, hematomas or skull depressions. No sinus tenderness. EYES: She is legally blind. EARS: Hearing grossly intact. Ear canals and tympanic membranes are within normal limits. MOUTH: Oropharynx within normal limits. NECK: Supple, trachea is midline, no adenopathy, no JVD, no carotid bruit, no c- spine tenderness, neck with full ROM. CHEST: Symmetric, no tenderness at palpation LUNGS: Decreased breath sounds bilaterally. CVS: Regular rate and rhythm, S1 and S2 present, no murmurs or gallops appreciated. ABDOMEN: Soft, non-tender. The belly is moderately distended. No rebound no guarding, and no masses palpated. There are hypoactive bowel sounds. BACK: She complains of mid back pain. Positive left-leg SLR at 45 degrees and right-leg SLR at 60 degrees. EXTREMITIES: No edema, no cyanosis or clubbing. NEURO: Alert and oriented x 3. No acute neurological deficits. Speech is normal and follows commands. SKIN: Dry and warm Triage Information Reviewed: Yes Vital Signs On Initial Exam: Initial Vitals Temp Pulse Resp BP Pulse Ox 96.8 F 78 17 162/85 95 05/29/17 14:54 05/29/17 14:54 05/29/17 14:54 05/29/17 14:54 05/29/17 14:54 Vital Signs Reviewed: Yes - Serina Coma Scale Coma Scale Total: 15 Diagnostics - Vital Signs Vital Signs Temp Pulse Resp BP Pulse Ox 05/29/17 15:30 67 15 151/84 95 05/29/17 15:17 75 156/88 96 05/29/17 14:54 96.8 F 78 17 162/85 95 - Laboratory Result Diagrams: 05/29/17 15:43 05/29/17 15:43 Lab Statement: Any lab studies that have been ordered have been reviewed, and results considered in the medical decision making process. - Radiology CXR Radiology Interpretation Completed By: Radiologist - Ordered at time of admission -- see [facility] Back Pain Course/Dx - Course Course Of Treatment: In the ED course the patient was given morphine, Ativan, potassium chloride, and Zofran. The patient is diagnosed with back pain and compression fracture of T12. Dr. Fenton, hospitalist, admits the patient. - Diagnoses Provider Diagnoses: Back pain, Compression fracture of T12 vertebra - Provider Notifications Discussed Care Of Patient With: Sami Fenton Time Discussed With Above Provider: 17:16 Instructed by Provider To: Admit As Inpatient Discharge - Discharge Plan Condition: Fair Disposition: ADMITTED TO [facility] Referrals: Glenys Das MD [Primary Care Provider] - The documentation as recorded by the Zhao traylor Thomas accurately reflects the service I personally performed and the decisions made by , Emily Sanchez MD.
--- NOTE | 2017-05-29 19:27 | RAD ---
INDICATION: Short of breath COMPARISON: April 25, 2017 TECHNIQUE: An AP portable view obtained at 1904 hours is submitted. FINDINGS: There are no acute bony findings. The cardiac silhouette is mildly prominent. Central pulmonary vessels and interstitium are prominent compatible with moderate interstitial congestion. Given these diffuse abnormalities, coexistent infectious infiltrates are not excluded. There are bilateral pleural effusions. IMPRESSION: Moderate interstitial congestion.
[2017-05-29] MEDS ORDERED: Warfarin TAB(*) 2 MG PO SCH (20:00)
[2017-05-29] MEDS ORDERED: Warfarin TAB(*) 6 MG PO ONE (20:00)
[2017-05-29] MEDS ORDERED: Furosemide IV* 10 MG/ML 2 ML VIAL (20 MG) IV SLOW PU ONE (20:54)
[2017-05-29] MEDS: Mometasone/Formoter 200/5 MDI INH SCH (21:49)
[2017-05-29] MEDS: Atorvastatin* 10 MG TAB PO SCH (23:52)
--- NOTE | 2017-05-30 00:09 | HP ---
CC: Dr. Glenys Das * HISTORY AND PHYSICAL: DATE OF ADMISSION: 05/29/17 PRIMARY CARE PROVIDER: Dr. Glenys Das. ATTENDING PHYSICIAN: Dr. Cheko Blackman * (dictated by Elizabeth Leon NP) CHIEF COMPLAINT: New compression fracture at T12. HISTORY OF PRESENT ILLNESS: Ms. Holloway is an 86-year-old female with a past medical history significant for atrial fibrillation, cerebrovascular accident, hypertension, hyperlipidemia, glaucoma, legally blind, COPD, CHF, skin cancer, left bundle branch block, monoclonal gammopathy and pulmonary nodules, who presented to the emergency room after instructed to by Dr. Flores after she had an outpatient urogram CT today showing a new mild compression deformity of T12. The patient states that she had onset of back pain approximately 10 days ago. The pain has been constant and is aggravated by movement and she was found nothing to alleviate the pain. She has been treating the pain with acetaminophen. The patient denies any falls. She denies any fever, chills, chest pain, shortness of breath, nausea, vomiting, urinary symptoms such as dysuria or urinary urgency. The patient reports constipation. She is unable to state when her last bowel movement was. It was noted that the patient was hospitalized from 04/25/17 to 05/01/17 for pneumonia, which she required Vapotherm and BiPAP for. She had been discharged to [facility] and then has since been discharged back to home. While in the emergency room, the patient had labs showing a mild anemia with a hemoglobin of 10.9, hematocrit of 33. She had an INR of 2.91. She was noted to have hypokalemia with a potassium of 3.2. Due to the significant amount of pain that the patient was in, she received a total of 8 mg of morphine and 1 mg of Ativan in addition to 8 mg of Zofran. The Hospitalists were called to evaluate the patient for admission. It is to note noted that during my assessment, the patient was very lethargic. She was able to be aroused temporarily, but quickly fell back asleep. PAST MEDICAL HISTORY: 1. Atrial fibrillation. 2. Cerebrovascular accident. 3. Hypertension. 4. Hyperlipidemia. 5. Glaucoma, legally blind. 6. COPD. 7. Congestive heart failure. 8. Skin cancer. 9. Left bundle branch block. 10. Monoclonal gammopathy. 11. Pulmonary nodules. PAST SURGICAL HISTORY: 1. Status post bunionectomy. 2. Status post breast biopsy. 3. Status post excision of skin cancer from the nose. 4. Status post hysterectomy. 5. Status post ICD insertion. HOME MEDICATIONS: Include: 1. Furosemide 40 mg oral weekly. 2. Furosemide 20 mg oral 6 days weekly. 3. Warfarin 6 mg oral on Monday, Monday and Monday and 4 mg oral daily on Monday, Monday, , Monday. 4. Spiriva 1 capsule inhalation daily. 5. Simvastatin 20 mg oral daily. 6. Levothyroxine 50 mcg oral every morning. 7. Dulera 200/5 two puffs inhalation twice daily. 8. Lactase enzymes 9000 units oral 3 times daily with meals. 9. Multivitamin 2 tablets oral daily. 10. Lexapro 5 mg oral daily. 11. Diltiazem 180 mg oral daily. 12. Probiotics 4 mg oral every morning. 13. Calcium carbonate-vitamin D 1 to 2 tablets oral daily. 14. Atenolol 50 mg oral daily. ALLERGIES: Include NITROFURANTOIN, CIPRO, METRONIDAZOLE, LUMIGAN, LACTOSE INTOLERANCE, LEVAQUIN, SULFA, RESTORIL, TRAMADOL, AMOXICILLIN, XARELTO, BRIMONIDINE. FAMILY HISTORY: The patient states that her mother had a history of heart disease, but she is unable to elaborate. She denies any family history of diabetes mellitus. The patient's father had an unknown cancer. SOCIAL HISTORY: The patient is a former smoker. At this time, she is too lethargic to give me details as to the length of time she smoked for. She quit smoking in the according to the previous records. The patient denies any recreational drug use and occasionally has alcohol. She is and lives with her . Her , Raúl Holloway, will be her surrogate decision maker in the event she was unable to decisions for herself. REVIEW OF SYSTEMS: I performed a 14-point review of systems. All the pertinent positives and negatives are mentioned in the history of present illness, the remaining review of systems are negative. PHYSICAL EXAMINATION GENERAL APPEARANCE: The patient is lethargic, but will respond to voice and appears to be in no acute distress. VITAL SIGNS: Temperature 97.1, heart rate 88, respiratory rate 20, O2 sat 93% on 4 L via nasal canula, BP 144/64. HEENT: Normocephalic, atraumatic. Pupils are equal and reactive to light. Extraocular movements are intact. It is to note that the patient's pupils are 1 to 2 mm. RESPIRATORY: There is no accessory muscle use and the lungs are clear to auscultation bilaterally, but decreased. CARDIOVASCULAR: Regular rate and rhythm. S1, S2 present. There are no murmurs , rubs or gallops. Heart rate is regular. ABDOMEN: Soft, nontender, nondistended. There are bowel sounds present x4. EXTREMITIES: There is no lower extremity edema. DP and PT pulses are 2+ and symmetric. MUSCULOSKELETAL: There is no clubbing or cyanosis noted. The patient exhibits good strength in all extremities. The patient has no tenderness to palpation on her midline back at this time or obvious deformities. She is able to straight leg raise both legs. She is able to lift the both legs to approximately 60 degrees at this time without pain. NEUROLOGICAL: The patient is lethargic, unable to fully determine orientation, although she knows that she is in [place], at the hospital. PSYCHOLOGICAL: The patient is calm and cooperative. SKIN: There are no rashes or abnormalities seen. DIAGNOSTIC STUDIES/LABORATORY DATA: Sodium 136, potassium 3.2, chloride 103, CO2 25, BUN 13, creatinine 0.66, glucose 95, magnesium 1.9, INR 2.91. White blood cell count 9.5, hemoglobin 10.9, hematocrit 33, and platelet count 304. EKG from today shows atrial fibrillation and a left bundle branch block, what appears to be some early repolarization in leads V2 and V3. EKG is similar to the previous EKG from 03/28/13. There are no acute signs of ischemia. 1. CT urogram outpatient today. Radiologist impression: Moderate sized bilateral pleural effusion with interval increase in size. Patchy airspace disease has essentially resolved. There is underlying emphysematous change. No CT evidence of urolithiasis or obstruction. No interval change. Stable bilateral renal cysts. Retained stool. Moderate diverticula. New mild compressive deformity of T12, hysterectomy. 2. Chest x-ray from today. Radiologist impression: Moderate interstitial congestion. IMPRESSION: Ms. Holloway is an 86-year-old female with past medical history significant for atrial fibrillation, cerebrovascular accident, hypertension, hyperlipidemia, legally blind, chronic obstructive pulmonary disease, congestive heart failure, skin cancer, left bundle branch block, monoclonal gammopathy and pulmonary nodules, who presents to the emergency room as directed by Dr. Flores for a new T12 compression fracture. The Hospitalists were asked to evaluate the patient for admission. The patient will be admitted as an inpatient. ASSESSMENT AND PLAN: 1. New T12 compression fracture. The patient denies any falls. She received a lot of pain medications while in the emergency room due to her significant pain. She is now comfortable and denies any pain. There is no tenderness to palpation at the time of my exam. I have asked Dr. Zamora with Neurosurgery to evaluate the patient to make any recommendations for a brace. For now, the patient will be placed on bedrest after she has been evaluated by Neurosurgery, we will get a Physical Therapy evaluation. For now, I plan to just place the patient on standing Tylenol for pain management. 2. Hypokalemia. The patient's potassium is 3.2. She will receive potassium replacement in the emergency room and we will have her labs rechecked tomorrow. 3. Moderate sized bilateral pleural effusion, increased in size in addition to mild interstitial congestion on chest x-ray. We will give the patient a small dose of IV Lasix today. Her lung sounds are diminished at the time of evaluation. She has no crackles in the bases. 4. History of congestive heart failure. The patient will be on daily weighs, strict I's and O's. Breezy last EF in November 2016 was 45% to 50%. She will be continued on her home furosemide dosing after she receives a dose of IV Lasix tonight for her increased interstitial edema. 5. Chronic obstructive pulmonary disease. The patient will be continued on her home Dulera and Spiriva. 6. Atrial fibrillation. The patient is currently in a controlled atrial fibrillation. She will be continued on her home Diltiazem and atenolol. She was anticoagulated with warfarin and her INR is therapeutic. 7. Hypothyroidism. The patient will be continued on her home levothyroxine. Her last TSH was 1.06 on 04/25/17. 8. Hypertension. The patient has been mostly normotensive during her time in the emergency room. We will continue her on her home atenolol and Cardizem and furosemide. 9. Hyperlipidemia. The patient will be continued on her home statin. 10. History of cerebrovascular accident. 11. Fluids, electrolytes, and nutrition. The patient will be on a heart healthy diet. 12. Code status. Do not resuscitate, do not intubate. The patient has a MOLST on her chart. 13. DVT prophylaxis. The patient is at highest risk. She will be continued on warfarin. Again, her INR is therapeutic at this time. 11. Disposition. Inpatient. TIME SPENT: Time for this admission was approximately 60 minutes, greater than half of that was spent with the patient attempting to discuss medications, past medical history, and the events leading up to her arrival today and reviewing her chart. The case has been discussed with the attending, Dr. Blackman, who agrees with the plan of care. Reviewed by DAMIEN KRAUSE 06/05/17 1330 [id number]/[facility] #: [id number]
[2017-05-30] MEDS: Acetaminophen TAB* 325 MG PO SCH ×3 (00:20→16:23)
[2017-05-30] MEDS: Levothyroxine TAB* 50 MCG TAB PO SCH (06:18)
[2017-05-30 06:28] LABS: BUN/Creatinine Ratio 19.7 (8-20); EGFR African American 100.1 (>60); EGFR Non-African American 77.9 (>60); Potassium 3.9 mmol/L (3.5-5.0)
[2017-05-30] MEDS: Mometasone/Formoter 200/5 MDI INH SCH ×2 (08:29→09:22)
[2017-05-30] MEDS: Tiotropium CAP.INH* CAP.INH/18 MCG (USE ORDER SET !) INH SCH (08:29)
[2017-05-30] MEDS ORDERED: Spiriva Inhaler DEVICE* 1 EACH DEVICE INH ONE (09:00)
[2017-05-30] MEDS: CMCS: Lactase Enzyme (NF) 3,000 UNIT TAB PO SCH ×3 (09:38→17:40)
[2017-05-30] MEDS: Citalopram TAB* 10 MG PO SCH (09:38)
[2017-05-30] MEDS: Multivitamins/Minerals TAB PO SCH (09:38)
[2017-05-30] MEDS: Atenolol TAB* 25 MG PO SCH (09:38)
[2017-05-30] MEDS: Diltiazem CD CAP* 180 MG PO SCH (09:39)
[2017-05-30] MEDS: Folic Acid TAB* 1 MG PO SCH (09:39)
[2017-05-30] MEDS: cefTRIAXone VIAL(*) 1,000 MG in D5W 50 ML BAG* 50 ML IVPB SCH (09:41)
--- NOTE | 2017-05-30 10:55 | PN ---
Subjective Date of Service: 05/30/17 Interval History: HOSPITALIST PROGRESS NOTE Patient seen and examined at bedside. She feels better today, denies pain as long as she doesn't move. C/o dysuria and polyuria at Dr. Flores's office and UA done at that time was positive. Family History: Unchanged from Admission Social History: Unchanged from Admission Past Medical History: Unchanged from Admission Objective Active Medications: Acetaminophen (Tylenol Tab*) 975 mg PO Q8H [facility] Last Admin: 05/30/17 09:39 Dose: 975 mg Atenolol (Tenormin Tab*) 50 mg PO DAILY [facility] Last Admin: 05/30/17 09:38 Dose: 50 mg Atorvastatin Calcium (Lipitor*) 10 mg PO BEDTIME [facility] Last Admin: 05/29/17 23:52 Dose: 10 mg Citalopram Hydrobromide (Celexa Tab*) 10 mg PO DAILY [facility] PRN Reason: Protocol Last Admin: 05/30/17 09:38 Dose: 10 mg Diltiazem HCl (Cardizem Cd Cap*) 180 mg PO DAILY [facility] Last Admin: 05/30/17 09:39 Dose: 180 mg Folic Acid (Folvite Tab*) 1 mg PO DAILY [facility] Last Admin: 05/30/17 09:39 Dose: 1 mg Furosemide (Lasix Tab*) 20 mg PO MoTuWeThFrSa@0800 [facility] Furosemide (Lasix Tab*) 40 mg PO Kendrick@0800 [facility] Ceftriaxone Sodium 1,000 mg/ (Dextrose) 50 mls @ 200 mls/hr IVPB Q24H [facility] Last Admin: 05/30/17 09:41 Dose: 200 mls/hr Lactase (Lactaid Fast Act (Nf)) 9,000 unit PO TID WITH MEALS [facility] Last Admin: 05/30/17 09:38 Dose: 9,000 unit Levothyroxine Sodium (Synthroid Tab*) 50 mcg PO 0600 [facility] Last Admin: 05/30/17 06:18 Dose: 50 mcg Mometasone Furoate/Formoterol Fumar (Dulera 200/5 Mdi*) 2 puff INH BID [facility] Last Admin: 05/30/17 08:29 Dose: 2 puff Multivitamins/Minerals (Theragran/Minerals Tab*) 2 tab PO DAILY [facility] Last Admin: 05/30/17 09:38 Dose: 2 tab Pharmacy Profile Note (Coumadin Per Pharmacy*) 1 note FOLLOW UP .PER PHARMACY PROTOC [facility] PRN Reason: Protocol Tiotropium [place] (Spiriva Cap.Inh*) 1 cap INH DAILY [facility] Last Admin: 05/30/17 08:29 Dose: 1 cap Warfarin Sodium (Coumadin Tab(*)) 4 mg PO DAILY@1700 [facility] PRN Reason: Protocol Vital Signs - 8 hr 05/30/17 05/30/17 03:42 08:42 Temperature 97.5 F Pulse Rate 91 Respiratory 16 Rate Blood Pressure 113/64 (mmHg) O2 Sat by Pulse 94 93 Oximetry Oxygen Devices in Use Now: Nasal Cannula - 4 liters Appearance: Elderly lady lying in bed in NAD. Eyes: No Scleral Icterus Ears/Nose/Mouth/Throat: Mucous Membranes Moist Neck: Trachea Midline Respiratory: Symmetrical Chest Expansion and Respiratory Effort, Clear to Auscultation Cardiovascular: RRR - Normal S1 and S2 Abdominal: NL Sounds; No Tenderness; No Distention Neurological: Alert and Oriented x 3, NL Muscle Strength and Tone Result Diagrams: 05/29/17 15:43 05/30/17 05:50 Assess/Plan/Problems-Billing Assessment: Mrs. Holloway is an 86yo F with PMH of Afib, CVA, HTN, HLD, glaucoma, COPD, CHF, hemolytic anemia, who was referred to ED due to newly diagnosed T12 fracture. - Patient Problems (1) T12 compression fracture Comment: - CT urogram showed mild compression fracture of T12. - Awaiting Neurosurgery input re: brace and PT. - Continue Acetaminophen for pain. (2) UTI (urinary tract infection) Comment: - Patient c/o dysuria and urinary frequency during her appointment with Dr. Flores. UA sent from the office is positive. - Start Ceftriaxone. - Follow cultures. (3) CHF (congestive heart failure) Comment: - Appears to be stable at this time, despite pleural effusions. - Continue Furosemide and Atenolol. (4) Afib Comment: - Rate is controlled. - Continue Diltiazem, Atenolol, and Warfarin. (5) DVT prophylaxis Comment: - Warfarin. (6) DNR (do not resuscitate) Status and Disposition: Change to inpatient.
[2017-05-30] MEDS: Furosemide TAB* 20 MG PO SCH (11:26)
--- NOTE | 2017-05-30 15:36 | CONSULT ---
Consult Consult: Neurosurgery Consult Date of Admission: 05/29/17 Date of Consult: 05/30/17 Referring provider: Dr. Edwards Reason for Consult: T12 compression fracture HPI: This is an 86 year old female who presented to the [facility] ED with complaint of back pain. CT urogram obtained on 05/29/17 showed T12 compression fracture and she was advised to go to the ED for evaluation and treatment. She states that she was recently hospitalized at a different hospital for treatment of pneumonia. She was discharged to rehab where she recovered well. On 05/19/17 she was brushing her teeth when she felt something move in her back and immediately had back pain. She states that the pain worsened over the next several days and was worse with movement. She ambulates with assistance of a walker. She denies recent falls or trauma. Denies numbness, tingling, weakness and pain in the bilateral lower extremities. Denies fever, chills, nausea, headache, pain or numbness in the thorax. She does report constipation and abdominal bloating. Past medical history: 1. Atrial fibrillation 2. HTN 3. CAD 4. HLD 5. CVA 6. CHF 7. Galucoma, legally blind 8. Pulmonary nodules 9. 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 COPD 12. Skin cancer Past surgical history: 1. Bunionectomy 2. Hysterectomy 3. Excision of skin cancer on nose 4. ICD placement 5. Breast biopsy Home medications: 1. Atenolol TAB* [Tenormin TAB* 25 MG] 50 mg PO DAILY 09/30/14 [History Confirmed 05/29/17] 2. Tiotropium CAP.INH* [Spiriva CAP.INH*] 1 cap INH DAILY 09/30/14 [History Confirmed 05/29/17] 3. Levothyroxine TAB* [Synthroid TAB*] 50 mcg PO QAM 11/25/16 [History Confirmed 05/29/17] 4. Probiotic Product [Align] 4 mg PO QAM 11/25/16 [History Confirmed 05/29/17] 5. Simvastatin [Zocor 40 MG (NF)] 20 mg PO BEDTIME 11/25/16 [History Confirmed 05/29/17] 6. Calcium Carbonate-Vitamin D W/ [Caltrate 600+D Plus Network Control Supervisor 600-800 mg-Unit] 1 - 2 tab PO DAILY 04/25/17 [History Confirmed 05/29/17] 7. Diltiazem CD CAP* [Cardizem CD CAP*] 180 mg PO DAILY 04/25/17 [History Confirmed 05/29/17] 8. Escitalopram (NF) [Lexapro 5 mg (NF)] 5 mg PO DAILY 04/25/17 [History Confirmed 05/29/17] 9. Multivitamins/Minerals TAB* [Theragran/minerals TAB*] 2 tab PO DAILY [History Confirmed 05/29/17] 10. Warfarin TAB(*) [Coumadin TAB(*)] 4 mg PO SUTUTHSA 04/25/17 [History Confirmed 05/29/17] 11. Warfarin TAB(*) [Coumadin TAB(*)] 6 mg PO MOWEFR 04/25/17 [History Confirmed 05/29/17] 12. Lactase Enzyme (NF) [Lactaid Fast Act] 9,000 unit PO TID WITH MEALS tab 12/10 [Rx Confirmed 05/29/17] 13. Furosemide TAB* [Lasix TAB*] 20 mg PO .6 DAYS A WEEK 05/29/17 [History Confirmed 05/29/17] 14. Furosemide TAB* [Lasix TAB*] 40 mg PO WEEKLY 05/29/17 [History Confirmed 10/10] 15. Mometasone/Formoter 200/5 MDI* [Dulera 200/5 MDI*] 2 puff INH BID 05/29/17 [ History Confirmed 05/29/17] 16. Folic Acid TAB* [Folvite TAB*] 1 mg PO DAILY 05/30/17 [History Confirmed 11/09] Allergies 1. Nitrofurantoin Allergy (Intermediate, Verified 06/17/16 16:31) headaches 2. Ciprofloxacin [From Cipro] Allergy (Mild, Verified 06/17/16 16:31) STOMACH ACHES 3. Metronidazole Allergy (Mild, Verified 06/17/16 16:31) STOMACH ACHES 4. Benzalkonium Chloride [From Lumigan] Allergy (Verified 06/17/16 16:31) Unknown Reaction Details "eye irritation" 5. Bimatoprost [From Lumigan] Allergy (Verified 06/17/16 16:31) Unknown Reaction Details "eye irritation" 6. Brimonidine Allergy (Verified 11/25/16 14:03) Unknown Reaction Details 7. Lactose Intolerance Allergy (Verified 06/17/16 16:31) GI Upset 8. Levofloxacin [From Levaquin] Allergy (Verified 06/17/16 16:31) Unknown Reaction Details "out of my head" 9. Sulfa Drugs Allergy (Verified 06/17/16 16:31) Unknown Reaction Details 10. Temazepam [From Restoril] Allergy (Verified 11/25/16 14:03) Unknown Reaction Details 11. Tramadol Allergy (Verified 11/25/16 14:03) Unknown Reaction Details 12. Amoxicillin Adverse Reaction (Intermediate, Verified 11/25/16 14:03) Diarrhea stomach pains 13. Rivaroxaban [From Xarelto] Adverse Reaction (Verified 11/25/16 14:03) See Comment ineffective for pt. Social history: She is a former smoker. Denies drug and alcohol use. ROS: Full ROS completed. Pertinent findings stated in HPI and all others negative. Physical exam: Vital Signs: Temp Pulse Resp BP Pulse Ox 97.8 F 80 17 133/63 96 05/30/17 11:17 05/30/17 11:17 05/30/17 11:17 05/30/17 11:17 05/30/17 11:17 General: Alert and oriented. Pleasant elderly female in no distress, laying comfortably in bed. HEENT: Head is normocephalic and atraumatic. PERRL, EOMI, patient is legally blind and unable to distinguish one or two fingers. Peripheral vision slightly diminished. Gross hearing intact although decreased. Moist mucus membranes. Neck: Neck is supple and symmetric. No adenopathy. Neck is nontender to palpation anteriorly and posteriorly. CV: Radial pulses 2+ and equal. Pedal pulses palpable. Lungs: Breathing is nonlabored, lungs are clear. Abdomen: Normoactive bowel sounds. Abdomen is slightly distended, nontender. Neuro: Oriented to person, place and time. CN II-XII intact. Extremities: Imagin. CT urogram on 05/29/17 shows mild T12 fracture. Assessment: This is an 86 year old female with multiple medical conditions who was found to have T12 compression fracture. Back pain is worse with movement and has been minimal since in bed. Tylenol ordered for pain control. This case was reviewed with and treatment plan formulated with Dr. Zamora. Plan: 1. TLSO brace for support, especially while up out of bed. 2. Patient up to chair with assistance as tolerated. 3. Continue pain management. 4. PT evaluation after brace placement.
[2017-05-30] MEDS ORDERED: Warfarin TAB(*) 4 MG PO SCH (17:00)
[2017-05-30] MEDS ORDERED: Warfarin TAB(*) 2 MG PO SCH (19:04)
[2017-05-30] MEDS: Atorvastatin* 10 MG TAB PO SCH (21:47)
[2017-05-31] MEDS: Acetaminophen TAB* 325 MG PO SCH ×3 (00:56→16:10)
[2017-05-31] MEDS: Levothyroxine TAB* 50 MCG TAB PO SCH (05:55)
[2017-05-31] MEDS: Mometasone/Formoter 200/5 MDI INH SCH ×2 (07:29→21:31)
[2017-05-31] MEDS: Tiotropium CAP.INH* CAP.INH/18 MCG (USE ORDER SET !) INH SCH (07:29)
[2017-05-31] MEDS: cefTRIAXone VIAL(*) 1,000 MG in D5W 50 ML BAG* 50 ML IVPB SCH (08:38)
[2017-05-31] MEDS: Multivitamins/Minerals TAB PO SCH (08:47)
[2017-05-31] MEDS: Folic Acid TAB* 1 MG PO SCH (08:47)
[2017-05-31] MEDS: Diltiazem CD CAP* 180 MG PO SCH (08:49)
[2017-05-31] MEDS: CMCS: Lactase Enzyme (NF) 3,000 UNIT TAB PO SCH ×3 (08:50→17:20)
[2017-05-31] MEDS: Citalopram TAB* 10 MG PO SCH (08:51)
[2017-05-31] MEDS: Atenolol TAB* 25 MG PO SCH (08:51)
[2017-05-31] MEDS: Furosemide TAB* 20 MG PO SCH (08:52)
[2017-05-31] MEDS: oxyCODONE TAB* 5 MG TAB PO PRN ×2 (11:00→22:14)
--- NOTE | 2017-05-31 14:23 | PN ---
Subjective Date of Service: 05/31/17 Interval History: HOSPITALIST PROGRESS NOTE Patient seen and examined at bedside. She c/o back pain, worse with movement in bed. Acetaminophen gives some relief, but not enough. Urinary complaints are resolved. Family History: Unchanged from Admission Social History: Unchanged from Admission Past Medical History: Unchanged from Admission Objective Active Medications: Acetaminophen (Tylenol Tab*) 975 mg PO Q8H [facility] Last Admin: 05/31/17 08:50 Dose: 975 mg Atenolol (Tenormin Tab*) 50 mg PO DAILY [facility] Last Admin: 05/31/17 08:51 Dose: 50 mg Atorvastatin Calcium (Lipitor*) 10 mg PO BEDTIME [facility] Last Admin: 05/30/17 21:47 Dose: 10 mg Citalopram Hydrobromide (Celexa Tab*) 10 mg PO DAILY [facility] PRN Reason: Protocol Last Admin: 05/31/17 08:51 Dose: 10 mg Diltiazem HCl (Cardizem Cd Cap*) 180 mg PO DAILY [facility] Last Admin: 05/31/17 08:49 Dose: 180 mg Folic Acid (Folvite Tab*) 1 mg PO DAILY [facility] Last Admin: 05/31/17 08:47 Dose: 1 mg Furosemide (Lasix Tab*) 20 mg PO MoTuWeThFrSa@0800 [facility] Last Admin: 05/31/17 08:52 Dose: 20 mg Furosemide (Lasix Tab*) 40 mg PO Kendrick@0800 [facility] Ceftriaxone Sodium 1,000 mg/ (Dextrose) 50 mls @ 200 mls/hr IVPB Q24H [facility] Last Admin: 05/31/17 08:38 Dose: 200 mls/hr Lactase (Lactaid Fast Act (Nf)) 9,000 unit PO TID WITH MEALS [facility] Last Admin: 05/31/17 12:58 Dose: 9,000 unit Levothyroxine Sodium (Synthroid Tab*) 50 mcg PO 0600 [facility] Last Admin: 05/31/17 05:55 Dose: 50 mcg Mometasone Furoate/Formoterol Fumar (Dulera 200/5 Mdi*) 2 puff INH BID [facility] Last Admin: 05/31/17 07:29 Dose: 2 puff Multivitamins/Minerals (Theragran/Minerals Tab*) 2 tab PO DAILY [facility] Last Admin: 05/31/17 08:47 Dose: 2 tab Oxycodone HCl (Roxycodone Tab*) 2.5 mg PO Q4H PRN PRN Reason: Moderate to Severe pain Last Admin: 05/31/17 11:00 Dose: 2.5 mg Timolol Maleate (Timoptic 0.5% Opth*) 1 drop RIGHT EYE BID [facility] Tiotropium [place] (Spiriva Cap.Inh*) 1 cap INH DAILY [facility] Last Admin: 05/31/17 07:29 Dose: 1 cap Vital Signs - 8 hr 05/31/17 05/31/17 05/31/17 07:32 08:00 11:00 Temperature 97.7 F Pulse Rate 86 Respiratory 17 20 Rate Blood Pressure 157/76 (mmHg) O2 Sat by Pulse 95 94 Oximetry Oxygen Devices in Use Now: None Appearance: Pleasant elderly lady lying in bed in NAD. Eyes: No Scleral Icterus Ears/Nose/Mouth/Throat: Mucous Membranes Moist Neck: Trachea Midline Respiratory: Symmetrical Chest Expansion and Respiratory Effort, Clear to Auscultation - decreased in bases Cardiovascular: RRR - Normal S1 and S2 Abdominal: NL Sounds; No Tenderness; No Distention Neurological: Alert and Oriented x 3, NL Muscle Strength and Tone, - - [facility] Result Diagrams: 05/29/17 15:43 05/30/17 05:50 Assess/Plan/Problems-Billing Assessment: Mrs. Holloway is an 86yo F with PMH of Afib, CVA, HTN, HLD, glaucoma, COPD, CHF, hemolytic anemia, who was referred to ED due to newly diagnosed T12 fracture. - Patient Problems (1) T12 compression fracture Comment: - CT urogram showed mild compression fracture of T12. - Neurosurgery input appreciated - can get OOB to chair, but needs TLSO brace before working with PT. - Continue Acetaminophen and add low dose Oxycodone for pain. (2) UTI (urinary tract infection) Comment: - Patient c/o dysuria and urinary frequency during her appointment with Dr. Flores. UA sent from the office is positive. - Urine culture growing Enterococcus. - Change antibiotics to Ampicillin. (3) CHF (congestive heart failure) Comment: - Appears to be stable at this time, despite pleural effusions. - Continue Furosemide and Atenolol. (4) Afib Comment: - Rate is controlled. - Continue Diltiazem, Atenolol, and Warfarin. (5) DVT prophylaxis Comment: - Warfarin. (6) DNR (do not resuscitate) Status and Disposition: Inpatient.
[2017-05-31] MEDS: Atorvastatin* 10 MG TAB PO SCH (21:22)
[2017-05-31] MEDS: Timolol 0.5% OPTH.SOL* BTL RIGHT EYE SCH (21:23)
[2017-06-01] MEDS: Acetaminophen ADULT LIQ* 650 MG/20.3 ML UDC PO SCH ×3 (00:10→16:00)
[2017-06-01] MEDS: Levothyroxine TAB* 50 MCG TAB PO SCH (05:41)
[2017-06-01] MEDS: Metolazone TAB* 5 MG PO SCH ×2 (07:56→09:09)
[2017-06-01] MEDS ORDERED: Furosemide TAB* 40 MG PO ONE (08:00)
[2017-06-01] MEDS: Citalopram TAB* 10 MG PO SCH (09:08)
[2017-06-01] MEDS: CMCS: Lactase Enzyme (NF) 3,000 UNIT TAB PO SCH ×3 (09:08→17:32)
[2017-06-01] MEDS: Multivitamins/Minerals TAB PO SCH (09:08)
[2017-06-01] MEDS: Folic Acid TAB* 1 MG PO SCH (09:08)
[2017-06-01] MEDS: Diltiazem CD CAP* 180 MG PO SCH (09:08)
[2017-06-01] MEDS: Atenolol TAB* 25 MG PO SCH (09:08)
[2017-06-01] MEDS: Timolol 0.5% OPTH.SOL* BTL RIGHT EYE SCH ×2 (09:10→20:56)
[2017-06-01] MEDS: Tiotropium CAP.INH* CAP.INH/18 MCG (USE ORDER SET !) INH SCH (09:48)
[2017-06-01] MEDS: Mometasone/Formoter 200/5 MDI INH SCH ×2 (09:48→20:09)
[2017-06-01] MEDS: cefTRIAXone VIAL(*) 1,000 MG in D5W 50 ML BAG* 50 ML IVPB SCH (10:16)
[2017-06-01] MEDS: Polyethylene Glycol 3350* 17 GM PACKET PO SCH (12:51)
[2017-06-01] MEDS: oxyCODONE TAB* 5 MG TAB PO PRN (12:56)
--- NOTE | 2017-06-01 13:29 | PN ---
Subjective Date of Service: 06/01/17 Interval History: HOSPITALIST PROGRESS NOTE Patient seen and examined at bedside. She feels better today. Still has pain, but feels better with her brace on. Family History: Unchanged from Admission Social History: Unchanged from Admission Past Medical History: Unchanged from Admission Objective Active Medications: Acetaminophen (Tylenol Adult Liq*) 975 mg PO Q8H [facility] Last Admin: 06/01/17 09:06 Dose: 975 mg Atenolol (Tenormin Tab*) 50 mg PO DAILY [facility] Last Admin: 06/01/17 09:08 Dose: 50 mg Atorvastatin Calcium (Lipitor*) 10 mg PO BEDTIME [facility] Last Admin: 05/31/17 21:22 Dose: 10 mg Citalopram Hydrobromide (Celexa Tab*) 10 mg PO DAILY [facility] PRN Reason: Protocol Last Admin: 06/01/17 09:08 Dose: 10 mg Diltiazem HCl (Cardizem Cd Cap*) 180 mg PO DAILY [facility] Last Admin: 06/01/17 09:08 Dose: 180 mg Folic Acid (Folvite Tab*) 1 mg PO DAILY [facility] Last Admin: 06/01/17 09:08 Dose: 1 mg Ceftriaxone Sodium 1,000 mg/ (Dextrose) 50 mls @ 200 mls/hr IVPB Q24H [facility] Last Admin: 06/01/17 10:16 Dose: 200 mls/hr Lactase (Lactaid Fast Act (Nf)) 9,000 unit PO TID WITH MEALS [facility] Last Admin: 06/01/17 12:51 Dose: 9,000 unit Levothyroxine Sodium (Synthroid Tab*) 50 mcg PO 0600 [facility] Last Admin: 06/01/17 05:41 Dose: 50 mcg Mometasone Furoate/Formoterol Fumar (Dulera 200/5 Mdi*) 2 puff INH BID [facility] Last Admin: 06/01/17 09:48 Dose: 2 puff Multivitamins/Minerals (Theragran/Minerals Tab*) 2 tab PO DAILY [facility] Last Admin: 06/01/17 09:08 Dose: 2 tab Oxycodone HCl (Roxycodone Tab*) 2.5 mg PO Q4H PRN PRN Reason: Moderate to Severe pain Last Admin: 06/01/17 12:56 Dose: 2.5 mg Polyethylene Glycol/Electrolytes (Miralax*) 17 gm PO DAILY [facility] Last Admin: 06/01/17 12:51 Dose: 17 gm Timolol Maleate (Timoptic 0.5% Opth*) 1 drop RIGHT EYE BID [facility] Last Admin: 06/01/17 09:10 Dose: 1 dose Tiotropium [place] (Spiriva Cap.Inh*) 1 cap INH DAILY [facility] Last Admin: 06/01/17 09:48 Dose: 1 cap Vital Signs - 8 hr 06/01/17 06/01/17 06/01/17 08:00 08:13 08:31 Temperature 97.7 F Pulse Rate 71 73 Respiratory 16 16 Rate Blood Pressure 154/79 154/79 (mmHg) O2 Sat by Pulse 94 93 94 Oximetry Oxygen Devices in Use Now: Nasal Cannula - 3 liters Appearance: Pleasant elderly lady lying in bed in NAD. Eyes: No Scleral Icterus Ears/Nose/Mouth/Throat: Mucous Membranes Moist Neck: Trachea Midline Respiratory: Symmetrical Chest Expansion and Respiratory Effort, Clear to Auscultation Cardiovascular: RRR - Normal S1 and S2 Extremities: No Edema Neurological: Alert and Oriented x 3, NL Muscle Strength and Tone Result Diagrams: 05/29/17 15:43 05/30/17 05:50 Assess/Plan/Problems-Billing Assessment: Mrs. Holloway is an 86yo F with PMH of Afib, CVA, HTN, HLD, glaucoma, COPD, CHF, hemolytic anemia, who was referred to ED due to newly diagnosed T12 fracture. - Patient Problems (1) T12 compression fracture Comment: - CT urogram showed mild compression fracture of T12. - Neurosurgery input appreciated - can get OOB to chair, but needs TLSO brace while working with PT. - Continue Acetaminophen and low dose Oxycodone for pain. (2) UTI (urinary tract infection) Comment: - Patient c/o dysuria and urinary frequency during her appointment with Dr. Flores. UA sent from the office is positive. - Urine culture growing Enterococcus. - Patient had diarrhea with penicillin. Will change ceftriaxone to Ceftin to complete treatment. (3) CHF (congestive heart failure) Comment: - Appears to be stable at this time, despite pleural effusions. - She was dyspneic and had low SO2 overnight - increase Furosemide today and monitor. (4) Afib Comment: - Rate is controlled. - Continue Diltiazem, Atenolol, and Warfarin. (5) DVT prophylaxis Comment: - Warfarin. (6) DNR (do not resuscitate) Status and Disposition: Inpatient. update at bedside. PMRU looking at her case.
[2017-06-01] MEDS: ceFUROXime TAB(*) 250 MG PO SCH (20:55)
[2017-06-01] MEDS: Atorvastatin* 10 MG TAB PO SCH (20:56)
[2017-06-02] MEDS: Acetaminophen TAB* 325 MG PO SCH ×3 (00:45→16:49)
[2017-06-02] MEDS: Levothyroxine TAB* 50 MCG TAB PO SCH (06:02)
[2017-06-02 08:07] LABS: BUN/Creatinine Ratio 21.2 (8-20); Calcium 9.6 mg/dL (8.6-10.3); EGFR African American 108.9 (>60); EGFR Non-African American 84.7 (>60); Potassium 3.1 mmol/L (3.5-5.0)
[2017-06-02] MEDS: Mometasone/Formoter 200/5 MDI INH SCH ×2 (08:41→20:44)
[2017-06-02] MEDS: Tiotropium CAP.INH* CAP.INH/18 MCG (USE ORDER SET !) INH SCH (08:41)
[2017-06-02] MEDS: Multivitamins/Minerals TAB PO SCH (08:47)
[2017-06-02] MEDS: Polyethylene Glycol 3350* 17 GM PACKET PO SCH (08:47)
--- NOTE | 2017-06-02 08:47 | RAD ---
HISTORY: CHF follow-up COMPARISONS: May 29, 2017 VIEWS: 2: Frontal and lateral views of the chest. FINDINGS: CARDIOMEDIASTINAL SILHOUETTE: The cardiomediastinal silhouette is normal. HILDA: The hilda are normal. PLEURA: There are small bilateral pleural effusions LUNG PARENCHYMA: There is hyperinflation with flattening of the diaphragm and expansion of the AP diameter of the chest. There has been interval improvement of the pulmonary interstitial edema pattern noted on the previous examination. ABDOMEN: The upper abdomen is clear. There is no subphrenic gas. BONES AND SOFT TISSUES: Degenerative changes are noted OTHER: A left-sided pacemaker is noted IMPRESSION: 1. COPD. 2. SMALL BILATERAL PLEURAL EFFUSIONS
[2017-06-02] MEDS: Atenolol TAB* 25 MG PO SCH (08:48)
[2017-06-02] MEDS: CMCS: Lactase Enzyme (NF) 3,000 UNIT TAB PO SCH ×3 (08:48→16:49)
[2017-06-02] MEDS: Folic Acid TAB* 1 MG PO SCH (08:48)
[2017-06-02] MEDS: Timolol 0.5% OPTH.SOL* BTL RIGHT EYE SCH ×2 (08:49→20:42)
[2017-06-02] MEDS: Diltiazem CD CAP* 180 MG PO SCH (08:49)
[2017-06-02] MEDS: Citalopram TAB* 10 MG PO SCH (08:49)
[2017-06-02] MEDS: ceFUROXime TAB(*) 250 MG PO SCH ×2 (08:49→20:41)
[2017-06-02] MEDS: Potassium Chlor TAB* 20 MEQ TAB.ER PO SCH ×2 (08:49→20:42)
--- NOTE | 2017-06-02 12:49 | PN ---
Progress Note - Progress Note Date of Service: 06/01/17 SOAP: Subjective: [This patient was seen and examined on 06/01/17 at 1115. She continues to complain of back pain with movements and will ambulating. However, the TLSO brace has been helpful in providing support and relieving pain while out of bed. She denies pain, numbness and weakness in the lower extremities. She denies radiating pain or numbness in the thorax. ] Objective: [General: Alert and oriented. Neuro: Motor and sensory intact. Spine: Mild tenderness to palpation of spine. Extremities: Full ROM. ] Assessment: [Stable. Back pain with movement improved while wearing TLSO brace. No surgical recommendations at this time. ] Plan: [1. Recommend wearing TLSO brace while out of bed and with ambulation as tolerated. 2. Continue pain management. 3. Discussed follow up with the patient and her . We will see her in our office in 3-4 weeks. 4. PT as necessary.]
[2017-06-02] MEDS: oxyCODONE TAB* 5 MG TAB PO PRN (14:00)
--- NOTE | 2017-06-02 15:53 | PN ---
Subjective Date of Service: 06/02/17 Interval History: HOSPITALIST PROGRESS NOTE Patient seen and examined at bedside. She c/o back pain with movement, but oxycodone helps. Her dyspnea is improved and she is on RA now. Family History: Unchanged from Admission Social History: Unchanged from Admission Past Medical History: Unchanged from Admission Objective Active Medications: Acetaminophen (Tylenol Tab*) 975 mg PO Q8H [facility] Last Admin: 06/02/17 08:48 Dose: 975 mg Atenolol (Tenormin Tab*) 50 mg PO DAILY [facility] Last Admin: 06/02/17 08:48 Dose: 50 mg Atorvastatin Calcium (Lipitor*) 10 mg PO BEDTIME [facility] Last Admin: 06/01/17 20:56 Dose: 10 mg Cefuroxime Axetil (Ceftin Tab(*)) 250 mg PO BID [facility] Last Admin: 06/02/17 08:49 Dose: 250 mg Citalopram Hydrobromide (Celexa Tab*) 10 mg PO DAILY [facility] PRN Reason: Protocol Last Admin: 06/02/17 08:49 Dose: 10 mg Diltiazem HCl (Cardizem Cd Cap*) 180 mg PO DAILY [facility] Last Admin: 06/02/17 08:49 Dose: 180 mg Folic Acid (Folvite Tab*) 1 mg PO DAILY [facility] Last Admin: 06/02/17 08:48 Dose: 1 mg Lactase (Lactaid Fast Act (Nf)) 9,000 unit PO TID WITH MEALS [facility] Last Admin: 06/02/17 12:31 Dose: 9,000 unit Levothyroxine Sodium (Synthroid Tab*) 50 mcg PO 0600 [facility] Last Admin: 06/02/17 06:02 Dose: 50 mcg Mometasone Furoate/Formoterol Fumar (Dulera 200/5 Mdi*) 2 puff INH BID [facility] Last Admin: 06/02/17 08:41 Dose: 2 puff Multivitamins/Minerals (Theragran/Minerals Tab*) 2 tab PO DAILY [facility] Last Admin: 06/02/17 08:47 Dose: 2 tab Oxycodone HCl (Roxycodone Tab*) 2.5 mg PO Q4H PRN PRN Reason: Moderate to Severe pain Last Admin: 06/02/17 14:00 Dose: 2.5 mg Polyethylene Glycol/Electrolytes (Miralax*) 17 gm PO DAILY [facility] Last Admin: 06/02/17 08:47 Dose: 17 gm Potassium Chloride (Klor Con Er Tab*) 20 meq PO BID [facility] Last Admin: 06/02/17 08:49 Dose: 20 meq Timolol Maleate (Timoptic 0.5% Opth*) 1 drop RIGHT EYE BID [facility] Last Admin: 06/02/17 08:49 Dose: 1 drop Tiotropium [place] (Spiriva Cap.Inh*) 1 cap INH DAILY [facility] Last Admin: 06/02/17 08:41 Dose: 1 cap Vital Signs - 8 hr 06/02/17 06/02/17 06/02/17 07:57 08:00 11:14 Pulse Rate 39 66 Respiratory 18 18 16 Rate Blood Pressure 140/70 114/51 (mmHg) O2 Sat by Pulse 95 94 Oximetry Oxygen Devices in Use Now: None Appearance: Pleasant elderly lady lying in bed in NAD. Eyes: No Scleral Icterus Ears/Nose/Mouth/Throat: Mucous Membranes Moist Neck: Trachea Midline Respiratory: Symmetrical Chest Expansion and Respiratory Effort, Clear to Auscultation Cardiovascular: RRR - Normal S1 and S2 Extremities: No Edema Neurological: Alert and Oriented x 3, - - [place], legally blind Result Diagrams: 05/29/17 15:43 06/02/17 07:43 Assess/Plan/Problems-Billing Assessment: Mrs. Holloway is an 86yo F with PMH of Afib, CVA, HTN, HLD, glaucoma, COPD, CHF, hemolytic anemia, who was referred to ED due to newly diagnosed T12 fracture. - Patient Problems (1) T12 compression fracture Comment: - CT urogram showed mild compression fracture of T12. - Neurosurgery input appreciated. - Needs TLSO when out of bed. - Continue Acetaminophen and low dose Oxycodone for pain. (2) UTI (urinary tract infection) Comment: - Patient c/o dysuria and urinary frequency during her appointment with Dr. Flores. UA sent from the office is positive. - Urine culture growing Enterococcus. - Patient had diarrhea with penicillin. Will change ceftriaxone to Ceftin to complete treatment. (3) CHF (congestive heart failure) Comment: - Appears to be stable at this time, despite pleural effusions. - She was dyspneic and had low SO2 overnight - increase Furosemide today and monitor. (4) Afib Comment: - Rate is controlled. - Continue Diltiazem, Atenolol, and Warfarin. (5) DVT prophylaxis Comment: - Warfarin. (6) DNR (do not resuscitate) Status and Disposition: Inpatient. Patient is at high risk for fall considering her age and blindness. She's also on Warfarin, at risk for bleeding with trauma. She will benefit of [facility].
[2017-06-02] MEDS: Atorvastatin* 10 MG TAB PO SCH (20:42)
[2017-06-03] MEDS: Acetaminophen TAB* 325 MG PO SCH ×3 (00:01→17:24)
[2017-06-03] MEDS: Levothyroxine TAB* 50 MCG TAB PO SCH (05:33)
[2017-06-03] MEDS: Mometasone/Formoter 200/5 MDI INH SCH ×2 (08:51→19:49)
[2017-06-03] MEDS: Tiotropium CAP.INH* CAP.INH/18 MCG (USE ORDER SET !) INH SCH (08:52)
[2017-06-03] MEDS: ceFUROXime TAB(*) 250 MG PO SCH ×2 (09:13→21:43)
[2017-06-03] MEDS: Multivitamins/Minerals TAB PO SCH (09:13)
[2017-06-03] MEDS: Folic Acid TAB* 1 MG PO SCH (09:13)
[2017-06-03] MEDS: CMCS: Lactase Enzyme (NF) 3,000 UNIT TAB PO SCH ×3 (09:13→17:24)
[2017-06-03] MEDS: Atenolol TAB* 25 MG PO SCH (09:13)
[2017-06-03] MEDS: Potassium Chlor TAB* 20 MEQ TAB.ER PO SCH ×2 (09:13→21:51)
[2017-06-03] MEDS: Citalopram TAB* 10 MG PO SCH (09:14)
[2017-06-03] MEDS: Diltiazem CD CAP* 180 MG PO SCH (09:14)
[2017-06-03] MEDS: Timolol 0.5% OPTH.SOL* BTL RIGHT EYE SCH ×2 (09:27→21:45)
[2017-06-03] MEDS: Polyethylene Glycol 3350* 17 GM PACKET PO SCH (10:10)
[2017-06-03] MEDS: NS 0.9% 500 ML* 500 ML IV ONE ×2 (12:03→16:25)
[2017-06-03] MEDS ORDERED: Potassium Chlor TAB* 20 MEQ TAB.ER PO ONE (13:36)
--- NOTE | 2017-06-03 14:38 | PN ---
Subjective Date of Service: 06/03/17 Interval History: Patient was up to chair 7am to 11am, then was dizzy, fatigued. BP <90/60. Was placed back in bed, BP normalized. IVF ordered, but there has been trouble w/ IV access. Patient reports back pain when out of bed. Wearing brace is difficult, as it presses on pacemaker near LT clavicle and on rib anteriorly. Denies SOB, chest pain. Reports constipation, but small BM yesterday Family History: Unchanged from Admission Social History: Unchanged from Admission Past Medical History: Unchanged from Admission Objective Active Medications: Acetaminophen (Tylenol Tab*) 975 mg PO Q8H [facility] Last Admin: 06/03/17 09:12 Dose: 975 mg Atenolol (Tenormin Tab*) 50 mg PO DAILY [facility] Last Admin: 06/03/17 09:13 Dose: 50 mg Atorvastatin Calcium (Lipitor*) 10 mg PO BEDTIME [facility] Last Admin: 06/02/17 20:42 Dose: 10 mg Cefuroxime Axetil (Ceftin Tab(*)) 250 mg PO BID [facility] Last Admin: 06/03/17 09:13 Dose: 250 mg Citalopram Hydrobromide (Celexa Tab*) 10 mg PO DAILY [facility] PRN Reason: Protocol Last Admin: 06/03/17 09:14 Dose: 10 mg Diltiazem HCl (Cardizem Cd Cap*) 180 mg PO DAILY [facility] Last Admin: 06/03/17 09:14 Dose: 180 mg Folic Acid (Folvite Tab*) 1 mg PO DAILY [facility] Last Admin: 06/03/17 09:13 Dose: 1 mg Lactase (Lactaid Fast Act (Nf)) 9,000 unit PO TID WITH MEALS [facility] Last Admin: 06/03/17 12:59 Dose: 9,000 unit Levothyroxine Sodium (Synthroid Tab*) 50 mcg PO 0600 [facility] Last Admin: 06/03/17 05:33 Dose: 50 mcg Mometasone Furoate/Formoterol Fumar (Dulera 200/5 Mdi*) 2 puff INH BID [facility] Last Admin: 06/03/17 08:51 Dose: 2 puff Multivitamins/Minerals (Theragran/Minerals Tab*) 2 tab PO DAILY [facility] Last Admin: 06/03/17 09:13 Dose: 2 tab Oxycodone HCl (Roxycodone Tab*) 2.5 mg PO Q4H PRN PRN Reason: Moderate to Severe pain Last Admin: 06/02/17 14:00 Dose: 2.5 mg Pharmacy Profile Note (Coumadin Daily Reminder*) 0 note FOLLOW UP 1700 [facility] Polyethylene Glycol/Electrolytes (Miralax*) 17 gm PO DAILY [facility] Last Admin: 06/03/17 10:10 Dose: 17 gm Potassium Chloride (Klor Con Er Tab*) 20 meq PO BID [facility] Last Admin: 06/03/17 09:13 Dose: 20 meq Timolol Maleate (Timoptic 0.5% Opth*) 1 drop RIGHT EYE BID [facility] Last Admin: 06/03/17 09:27 Dose: 1 drop Tiotropium [place] (Spiriva Cap.Inh*) 1 cap INH DAILY [facility] Last Admin: 06/03/17 08:52 Dose: 1 cap Vital Signs - 8 hr 06/03/17 06/03/17 06/03/17 08:37 08:51 11:45 Pulse Rate 100 88 61 Respiratory 15 17 Rate Blood Pressure 136/66 76/51 (mmHg) O2 Sat by Pulse 95 97 Oximetry Oxygen Devices in Use Now: None Appearance: alert, no distress Eyes: No Scleral Icterus Ears/Nose/Mouth/Throat: NL Teeth, Lips, Gums Neck: No Thyroid Enlargement, Masses Respiratory: Clear to Auscultation Cardiovascular: NL Sounds; No Murmurs; No JVD, RRR Abdominal: No Hepatosplenomegaly, - - tender throughout, no rebound, distended Lymphatic: No Cervical Adenopathy Extremities: No Edema Neurological: Alert and Oriented x 3 Lines/Tubes/Other Access: Clean, Dry and Intact Peripheral IV Result Diagrams: 05/29/17 15:43 06/02/17 07:43 Assess/Plan/Problems-Billing Assessment: Mrs. Holloway is an 86yo F with PMH of Afib, CVA, HTN, HLD, glaucoma, COPD, CHF, hemolytic anemia, who was referred to ED due to newly diagnosed T12 fracture. - Patient Problems (1) T12 compression fracture Current Visit: Yes Status: Acute Priority: High Code(s): S22.080A - WEDGE COMPRESSION FRACTURE OF T11-T12 VERTEBRA, INIT SNOMED Code(s): 751272475 Comment: - imaging mild compression fracture of T12. - Neurosurgery input appreciated. - Needs TLSO when out of bed, TLSO needs to be cut and adjusted to accomodate her pacemaker - Continue Acetaminophen and low dose Oxycodone for pain. (2) CHF (congestive heart failure) Current Visit: Yes Status: Acute Priority: High Code(s): I50.9 - HEART FAILURE, UNSPECIFIED SNOMED Code(s): 74900851 Comment: - BP low due to overdiuresis - lasix on hold - no symptoms of CHF today (3) UTI (urinary tract infection) Current Visit: Yes Status: Acute Comment: - Urine culture growing Enterococcus. - Continue Ceftin for 5 days. (4) Atrial fibrillation with RVR Current Visit: No Status: Acute Priority: Medium Onset Date: 09/30/14 Code(s): I48.91 - UNSPECIFIED ATRIAL FIBRILLATION SNOMED Code(s): 312883365860879 Comment: - INR nearing therapeutic level, was supratherapeutic - Will resume lower dose warfarin (5) DVT prophylaxis Current Visit: Yes Status: Acute Priority: Low Code(s): PQX5222 - SNOMED Code(s): 350879335 Comment: - Warfarin. Status and Disposition: Inpatient. Patient is at high risk for fall considering her age and blindness. She's also on Warfarin, at risk for bleeding with trauma. She will benefit of [facility].
[2017-06-03] MEDS ORDERED: Warfarin TAB(*) 3 MG PO SCH (17:00)
[2017-06-03] MEDS: Potassium Chloride LIQUID* 20 MEQ PACKET PO SCH (21:43)
[2017-06-03] MEDS: Atorvastatin* 10 MG TAB PO SCH (21:44)
[2017-06-04] MEDS: Acetaminophen TAB* 325 MG PO SCH ×3 (00:14→17:21)
[2017-06-04] MEDS: Levothyroxine TAB* 50 MCG TAB PO SCH (05:28)
[2017-06-04 05:54] LABS: BUN/Creatinine Ratio 27.9 (8-20); Calcium 9.6 mg/dL (8.6-10.3); EGFR African American 105.3 (>60); EGFR Non-African American 81.8 (>60); Magnesium 1.9 mg/dL (1.9-2.7); Potassium 3.6 mmol/L (3.5-5.0)
[2017-06-04] MEDS ORDERED: Furosemide TAB* 40 MG PO SCH (08:00)
[2017-06-04] MEDS: Polyethylene Glycol 3350* 17 GM PACKET PO SCH (09:13)
[2017-06-04] MEDS: Diltiazem CD CAP* 180 MG PO SCH (09:14)
[2017-06-04] MEDS: Multivitamins/Minerals TAB PO SCH (09:14)
[2017-06-04] MEDS: Atenolol TAB* 25 MG PO SCH (09:14)
[2017-06-04] MEDS: CMCS: Lactase Enzyme (NF) 3,000 UNIT TAB PO SCH ×3 (09:14→17:25)
[2017-06-04] MEDS: ceFUROXime TAB(*) 250 MG PO SCH ×2 (09:14→20:01)
[2017-06-04] MEDS: Folic Acid TAB* 1 MG PO SCH (09:14)
[2017-06-04] MEDS: Citalopram TAB* 10 MG PO SCH (09:14)
[2017-06-04] MEDS: Potassium Chloride LIQUID* 20 MEQ PACKET PO SCH ×2 (09:23→20:01)
[2017-06-04] MEDS: Tiotropium CAP.INH* CAP.INH/18 MCG (USE ORDER SET !) INH SCH (09:57)
[2017-06-04] MEDS: Mometasone/Formoter 200/5 MDI INH SCH ×2 (09:58→20:37)
--- NOTE | 2017-06-04 12:23 | PN ---
Subjective Date of Service: 06/04/17 Interval History: Patient was up to chair today for several hours. Wearing TLSO brace but needs to keep moving it because it presses on pacemaker NARAYAN chest. No SOB, no chest pain, no new edema. Had good breakfast, bowels moved. Family History: Unchanged from Admission Social History: Unchanged from Admission Past Medical History: Unchanged from Admission Objective Active Medications: Acetaminophen (Tylenol Tab*) 975 mg PO Q8H [facility] Last Admin: 06/04/17 09:15 Dose: 975 mg Atenolol (Tenormin Tab*) 50 mg PO DAILY [facility] Last Admin: 06/04/17 09:14 Dose: 50 mg Atorvastatin Calcium (Lipitor*) 10 mg PO BEDTIME [facility] Last Admin: 06/03/17 21:44 Dose: 10 mg Cefuroxime Axetil (Ceftin Tab(*)) 250 mg PO BID [facility] Stop: 06/06/17 09:01 Last Admin: 06/04/17 09:14 Dose: 250 mg Citalopram Hydrobromide (Celexa Tab*) 10 mg PO DAILY [facility] PRN Reason: Protocol Last Admin: 06/04/17 09:14 Dose: 10 mg Diltiazem HCl (Cardizem Cd Cap*) 180 mg PO DAILY [facility] Last Admin: 06/04/17 09:14 Dose: 180 mg Folic Acid (Folvite Tab*) 1 mg PO DAILY [facility] Last Admin: 06/04/17 09:14 Dose: 1 mg Lactase (Lactaid Fast Act (Nf)) 9,000 unit PO TID WITH MEALS [facility] Last Admin: 06/04/17 09:14 Dose: 9,000 unit Levothyroxine Sodium (Synthroid Tab*) 50 mcg PO 0600 [facility] Last Admin: 06/04/17 05:28 Dose: 50 mcg Mometasone Furoate/Formoterol Fumar (Dulera 200/5 Mdi*) 2 puff INH BID [facility] Last Admin: 06/04/17 09:58 Dose: 2 puff Multivitamins/Minerals (Theragran/Minerals Tab*) 2 tab PO DAILY [facility] Last Admin: 06/04/17 09:14 Dose: 2 tab Oxycodone HCl (Roxycodone Tab*) 2.5 mg PO Q4H PRN PRN Reason: Moderate to Severe pain Last Admin: 06/02/17 14:00 Dose: 2.5 mg Polyethylene Glycol/Electrolytes (Miralax*) 17 gm PO DAILY [facility] Last Admin: 06/04/17 09:13 Dose: 17 gm Potassium Chloride (Klor-Con Liquid*) 20 meq PO BID [facility] Last Admin: 06/04/17 09:23 Dose: 20 meq Timolol Maleate (Timoptic 0.5% Opth*) 1 drop RIGHT EYE BID [facility] Last Admin: 06/03/17 21:45 Dose: 1 drop Tiotropium [place] (Spiriva Cap.Inh*) 1 cap INH DAILY [facility] Last Admin: 06/04/17 09:57 Dose: 1 cap Warfarin Sodium (Coumadin Tab(*)) 3 mg PO DAILY@1700 [facility] PRN Reason: Protocol Vital Signs - 8 hr 06/04/17 06/04/17 06/04/17 08:00 09:17 11:16 Temperature 36.3 C Pulse Rate 82 60 Respiratory 16 16 16 Rate Blood Pressure 141/85 104/62 (mmHg) O2 Sat by Pulse 97 97 99 Oximetry Oxygen Devices in Use Now: None Appearance: alert, no distress Neck: NL Appearance and Movements; NL JVP Respiratory: Symmetrical Chest Expansion and Respiratory Effort, Clear to Auscultation Cardiovascular: NL Sounds; No Murmurs; No JVD, RRR Abdominal: NL Sounds; No Tenderness; No Distention, No Hepatosplenomegaly Neurological: Alert and Oriented x 3 Lines/Tubes/Other Access: Clean, Dry and Intact Peripheral IV Nutrition: Taking PO's Result Diagrams: 05/29/17 15:43 06/04/17 05:26 Assess/Plan/Problems-Billing Assessment: Mrs. Holloway is an 86yo F with PMH of Afib, CVA, HTN, HLD, glaucoma, COPD, CHF, hemolytic anemia, who was referred to ED due to newly diagnosed T12 fracture. - Patient Problems (1) T12 compression fracture Current Visit: Yes Status: Acute Priority: High Code(s): S22.080A - WEDGE COMPRESSION FRACTURE OF T11-T12 VERTEBRA, INIT SNOMED Code(s): 812781568 Comment: - imaging mild compression fracture of T12. - Neurosurgery input appreciated. - Needs TLSO when out of bed, TLSO needs to be cut and adjusted to accomodate her pacemaker - Continue Acetaminophen and low dose Oxycodone for pain. (2) CHF (congestive heart failure) Current Visit: Yes Status: Acute Priority: High Code(s): I50.9 - HEART FAILURE, UNSPECIFIED SNOMED Code(s): 35975361 Comment: - BP still drops when sitting - lasix on hold - no symptoms of CHF today (3) UTI (urinary tract infection) Current Visit: Yes Status: Acute Comment: - Urine culture growing Enterococcus. - Continue Ceftin for 5 days. (4) Atrial fibrillation with RVR Current Visit: No Status: Acute Priority: Medium Onset Date: 09/30/14 Code(s): I48.91 - UNSPECIFIED ATRIAL FIBRILLATION SNOMED Code(s): 846923553368799 Comment: - INR now below therapeutic level, was supratherapeutic - Will increase dose warfarin (5) DVT prophylaxis Current Visit: Yes Status: Acute Priority: Low Code(s): [id number] - SNOMED Code(s): 630564583 Comment: - Warfarin. Status and Disposition: Inpatient. May need sub-acute rehab, then return home.
[2017-06-04] MEDS: Timolol 0.5% OPTH.SOL* BTL RIGHT EYE SCH ×2 (12:49→20:01)
[2017-06-04] MEDS ORDERED: Warfarin TAB(*) 4 MG PO SCH (17:00)
[2017-06-04] MEDS: Atorvastatin* 10 MG TAB PO SCH (20:01)
[2017-06-05] MEDS: Acetaminophen TAB* 325 MG PO SCH ×2 (00:30→08:34)
[2017-06-05] MEDS: Levothyroxine TAB* 50 MCG TAB PO SCH (05:40)
[2017-06-05 06:25] LABS: Hematocrit 32 % (35-47); Hemoglobin 10.7 g/dl (12.0-16.0); Mean Corpuscular HGB Conc 34 g/dl (31-36); Mean Corpuscular Hemoglobin 31 pg (27-31); Mean Corpuscular Volume 93 fL (80-97); Mean Platelet Volume 7 um3 (7.4-10.4); Red Cell Distribution Width 17 % (10.5-15); White Blood Count 6.9 10^3/ul (3.5-10.8)
[2017-06-05 06:38] LABS: BUN/Creatinine Ratio 29.9 (8-20); Calcium 9.7 mg/dL (8.6-10.3); EGFR African American 107.1 (>60); EGFR Non-African American 83.3 (>60); Potassium 3.8 mmol/L (3.5-5.0)
[2017-06-05] MEDS: CMCS: Lactase Enzyme (NF) 3,000 UNIT TAB PO SCH ×2 (08:34→12:55)
[2017-06-05] MEDS: Timolol 0.5% OPTH.SOL* BTL RIGHT EYE SCH (08:35)
[2017-06-05] MEDS: Atenolol TAB* 25 MG PO SCH (08:35)
[2017-06-05] MEDS: Diltiazem CD CAP* 180 MG PO SCH (08:35)
[2017-06-05] MEDS: Polyethylene Glycol 3350* 17 GM PACKET PO SCH (08:35)
[2017-06-05] MEDS: Potassium Chloride LIQUID* 20 MEQ PACKET PO SCH (08:35)
[2017-06-05] MEDS: Citalopram TAB* 10 MG PO SCH (08:35)
[2017-06-05] MEDS: ceFUROXime TAB(*) 250 MG PO SCH (08:35)
[2017-06-05] MEDS: Folic Acid TAB* 1 MG PO SCH (08:35)
[2017-06-05] MEDS: Multivitamins/Minerals TAB PO SCH (08:36)
[2017-06-05] MEDS: Tiotropium CAP.INH* CAP.INH/18 MCG (USE ORDER SET !) INH SCH (08:54)
[2017-06-05] MEDS: Mometasone/Formoter 200/5 MDI INH SCH (08:54)
[2017-06-05 10:11] VITALS: BP 145/82
--- NOTE | 2017-06-07 03:37 | DS ---
CC: Dr. Das; Dr. Zamora * DISCHARGE SUMMARY: DATE OF ADMISSION: 05/29/17 DATE OF DISCHARGE: 06/05/17 PRIMARY CARE PROVIDER: Dr. Das. CONSULTING NEUROSURGEON: Dr. Zamora. DISCHARGE DIAGNOSES: 1. T12 compression fracture. 2. Enterococcus urinary tract infection. SECONDARY DIAGNOSES: 1. Atrial fibrillation. 2. Cerebrovascular accident. 3. Hypertension. 4. Hyperlipidemia. 5. Legally blind secondary to glaucoma. 6. Chronic obstructive pulmonary disease. 7. Diastolic congestive heart failure. 8. Left bundle branch block. 9. Hemolytic anemia. 10. Monoclonal gammopathy. 11. Hard of hearing. 12. Status post implantable cardioverter-defibrillator. 13. Status post hysterectomy. MEDICATION LIST: 1. Folic acid 1 mg p.o. daily. 2. Furosemide 40 mg p.o. once a week and 20 mg p.o. the other 6 days of the week. 3. Spiriva 1 capsule inhaled daily. 4. Simvastatin 20 mg p.o. at bedtime. 5. Levothyroxine 50 mcg p.o. daily. 6. Dulera 200/5 two puffs inhaled b.i.d.. 7. Multivitamin 2 tablets p.o. daily. 8. Escitalopram 5 mg p.o. daily. 9. Cardizem CD 180 mg p.o. daily. 10. Align 4 mg p.o. q.a.m. 11. Calcium plus vitamin D 1 to 2 tablets p.o. daily. 12. Atenolol 50 mg p.o. daily. 13. Lactase enzyme 9000 units p.o. t.i.d. with meals. 14. Warfarin 4 mg p.o. daily. 15. Timolol 0.5% 1 drop to right eye b.i.d. 16. Potassium chloride 20 mEq p.o. b.i.d. 17. MiraLAX 17 g p.o. daily. 18. Acetaminophen 975 mg p.o. q.8 hours p.r.n. pain. 19. Oxycodone 2.5 mg p.o. q.4 hours p.r.n. [id number] pain, MDD 15 mg. HOSPITAL COURSE: Ms. Holloway is an 86-year-old lady with a past medical history as stated above that was sent to the emergency room after presenting to Dr. Flores's office with complaints of back and flank pain and an outpatient urogram CT showing a new compression fracture of T12. For more details about her presentation, I refer you to her history and physical. The patient was admitted for further management. She was seen in consultation by Neurosurgery (Dr. Zamora) and the recommendation was for a TLSO brace for support especially while out of bed and PT evaluation after brace placement. After the brace was placed, the patient worked with Physical Therapy. Initially , the thought was she is going to need subacute rehab placement, but she continued to make progress and was felt to be stable to be discharged home to receive visiting nurse services and physical therapy as outpatient. The patient had episode of desaturation requiring supplemental oxygen, but she responded well to diuresis and she is going home on room air. The patient was also found to have a urinary tract infection and she completed her treatment while in the hospital. The patient's fracture is osteoporotic and apparently, she had bisphosphonates for many years and now is only on calcium and vitamin D. She could be considered for other therapies for osteoporosis as outpatient and the patient and her family are especially interested in infusions once or twice a year. She is medically stable for discharge today to follow up with Dr. Das in 4 to [address] Flores on 06/07/17 at 10 a.m. to monitor her INR and with Neurosurgery, Dr. Zamora, in 4 weeks. PHYSICAL EXAMINATION: Vital Signs: Temperature is 97.4, heart rate is 90, respiratory rate is 18, oxygen saturation 96% on room air, blood pressure 145/ 82. General: The patient is a pleasant elderly lady sitting up in the chair, in no acute distress. CVS: Normal S1 and S2. Regular rate and rhythm. Chest : Breath sounds bilaterally. No added sounds. Extremities: No edema. Neuro: She is alert, awake, and oriented x3, able to move all 4 extremities. DIET: Heart healthy diet. ACTIVITIES: As tolerated. DISPOSITION: To home. STATUS WHILE IN THE HOSPITAL: Inpatient. Please keep in mind this is a summarized version of this patient's hospital stay. If you need more information, please feel free to call me at [phone] or please obtain the full medical records. TIME SPENT: Approximately 45 minutes was spent to complete this discharge. [id number]/[facility] #: [id number] ISH[facility]
== END 2017-06-05 15:35 | disposition home health service (06) | DRG 543 ==
LOC: ED 14:51 → MED 17:20
PROVIDERS: ADMIT Internal Medicine; ATTEND Internal Medicine
DX: M80.88XA Other osteoporosis with current pathological fracture, vertebra(e), initial encounter for fracture (principal); N39.0 Urinary tract infection, site not specified; J90 Pleural effusion, not elsewhere classified; D58.9 Hereditary hemolytic anemia, unspecified; I48.91 Unspecified atrial fibrillation; I11.0 Hypertensive heart disease with heart failure; I50.30 Unspecified diastolic (congestive) heart failure; D47.2 Monoclonal gammopathy; B95.2 Enterococcus as the cause of diseases classified elsewhere; E78.5 Hyperlipidemia, unspecified; J44.9 Chronic obstructive pulmonary disease, unspecified; H54.8 Legal blindness, as defined in USA; H40.9 Unspecified glaucoma; I44.7 Left bundle-branch block, unspecified; Z95.810 Presence of automatic (implantable) cardiac defibrillator; Z86.73 Personal history of transient ischemic attack (TIA), and cerebral infarction without residual deficits; Z85.828 Personal history of other malignant neoplasm of skin; E87.6 Hypokalemia; Z79.01 Long term (current) use of anticoagulants; Z79.84 Long term (current) use of oral hypoglycemic drugs; Z79.899 Other long term (current) drug therapy; Z88.0 Allergy status to penicillin; Z88.2 Allergy status to sulfonamides; Z88.8 Allergy status to other drugs, medicaments and biological substances; Z88.1 Allergy status to other antibiotic agents; Z91.011 Allergy to milk products; Z82.49 Family history of ischemic heart disease and other diseases of the circulatory system; Z80.9 Family history of malignant neoplasm, unspecified; Z87.891 Personal history of nicotine dependence; Z66 Do not resuscitate
CPT/HCPCS: 0521F; 1036F; 1125F; 36415; 71010; 71020; 74178; 76377; 80048; 80053; 81003; 81015; 82728; 83540; 83550; 83735; 85025; 85610; 85730; 87086; 93005; 94640; 94760; 99212; 99214; A9270-GY; G0463; G8427; J0696; J1940; J2060; J2270; J2405; Q9967

== ENCOUNTER 2017-11-15 09:29 | Inpatient (IN) | payer MEDICARE ==
[2017-11-15] MEDS ORDERED: Acetaminophen TAB* 325 MG PO ONE (09:59)
[2017-11-15] MEDS ORDERED: NS 0.9% 1000 ML* 1,000 ML IV ONE (10:00)
[2017-11-15] MEDS ORDERED: NS 0.9% 500 ML* 500 ML IV ONE (10:15)
[2017-11-15] MEDS ORDERED: cefTRIAXone(*) 1 GM in NS 0.9% 50 ML* 50 ML IVPB ONE (10:16)
[2017-11-15] MEDS ORDERED: Azithromycin IV(*) 500 MG in NS 0.9% 250 ML* 250 ML IVPB ONE (10:16)
--- NOTE | 2017-11-15 10:23 | RAD ---
HISTORY: Fever, cough, shortness of breath COMPARISONS: June 02, 2017 VIEWS: 1: frontal portable view of the chest at 10:07 AM FINDINGS: LINES AND TUBES: A left-sided pacemaker is noted. CARDIOMEDIASTINAL SILHOUETTE: The cardiomediastinal silhouette is normal for portable technique. PLEURA: The costophrenic angles are sharp. No pleural abnormalities are noted. LUNG PARENCHYMA: There is hyperinflation. There is multifocal and confluent alveolar opacities within the left mid and lower lung field and right lower lung field. ABDOMEN: The upper abdomen is clear. There is no subphrenic gas. BONES AND SOFT TISSUES: No bone or soft tissue abnormalities are noted. IMPRESSION: MULTIFOCAL BILATERAL CONSOLIDATION. RECOMMEND FOLLOW-UP UNTIL RESOLUTION TO EXCLUDE UNDERLYING PULMONARY PARENCHYMAL PATHOLOGY.
[2017-11-15] MEDS ORDERED: NS 0.9% 50 ML* 50 ML ONE (10:30)
[2017-11-15 10:43] LABS: INR 3.03 (0.77-1.02)
[2017-11-15] MEDS ORDERED: cefTRIAXone(*) 1 GM ADVAN/BAG ONE (10:43)
[2017-11-15] MEDS ORDERED: Ondansetron ODT TAB* 4 MG ONE (10:43)
[2017-11-15] MEDS ORDERED: Ondansetron ODT TAB* 4 MG PO ONE (10:45)
[2017-11-15 11:05] LABS: ABS Basophils 0 10^3/ul (0-0.2); ABS Eosinophils 0 10^3/ul (0-0.6); ABS Lymphocytes 0.4 10^3/ul (1.0-4.8); ABS Monocytes 0.5 10^3/ul (0-0.8); ABS Neutrophils 5.9 10^3/ul (1.5-7.7); ABS Nucleated RBC 0 10^3/ul; Eosinophil % 0.2 % (0-6); Hematocrit 38 % (35-47); Hemoglobin 12.4 g/dl (12.0-16.0); Lymphocyte % 6.5 % (25-47); Mean Corpuscular HGB Conc 33 g/dl (31-36); Mean Corpuscular Hemoglobin 29 pg (27-31); Mean Corpuscular Volume 87 fL (80-97); Mean Platelet Volume 7.7 um3 (7.4-10.4); Nucleated Red Blood Cells % 0.1; Platelet Count 197 10^3/ul (150-450); Red Blood Count 4.35 10^6/ul (4.0-5.4); Red Cell Distribution Width 19 % (10.5-15); White Blood Count 6.9 10^3/ul (3.5-10.8)
[2017-11-15 11:21] LABS: Urine Appearance Cloudy; Urine Blood Negative (Negative); Urine Color Yellow; Urine Ketones Negative (Negative); Urine Protein Negative (Negative); Urine Specific Gravity 1.015 (1.010-1.030); Urine Urobilinogen Negative (Negative)
[2017-11-15 11:31] LABS: EGFR Non-African American 80.3 (>60)
[2017-11-15] MEDS ORDERED: Iodixanol* (CONTRAST) 320 MG/ML 100 ML SDV IV ONE (11:34)
[2017-11-15] MEDS ORDERED: Polyethylene Glycol 3350* 17 GM PACKET PO PRN (12:21)
[2017-11-15] MEDS ORDERED: Acetaminophen TAB* 325 MG PO PRN (12:24)
[2017-11-15] MEDS ORDERED: CMC:Melatonin (NF) 3 MG TAB PO PRN (12:30)
[2017-11-15] MEDS ORDERED: NS 0.9% 1000 ML* 1,000 ML IV SCH (12:30)
--- NOTE | 2017-11-15 14:21 | RAD ---
INDICATION: Diffuse abdominal pain. Nausea. Hysterectomy. Appendectomy. COMPARISON: CT urogram May 29, 2017 TECHNIQUE: Axial source images were obtained from the hemidiaphragms to the symphysis pubis following administration of oral and intravenous contrast. 62 mL Visipaque 320 was utilized. Coronal and sagittal reconstructed images were acquired. Lung bases: There is cardiomegaly. There are bibasilar infiltrates with moderate to large bilateral pleural effusions. There are emphysematous changes. There is pacemaker artifact. Liver: The liver is normal in size. There are no masses. There is no ductal dilatation. Gallbladder: There are no calcified gallstones. There is no evidence of wall thickening or pericholecystic fluid. Spleen: The spleen is normal in size. There are no masses. Pancreas: There is no focal pancreatic mass or ductal dilatation. Adrenal glands: There is no evidence of adrenal mass. Kidneys: The kidneys are normal in size and position. There are prompt nephrograms and there is prompt excretion bilaterally. There are no new renal parenchymal masses. There are bilateral renal cysts with a dominant cyst in the inferior pole of the right kidney measuring 2.1 cm. The appearance unchanged. There is no evidence of nephrolithiasis. Adenopathy: There is no evidence of adenopathy by size criteria. Fluid collections: There are no free or localized fluid collections. Vessels:There are atherosclerotic changes involving the aorta and iliac vessels. There is no focal aneurysm. The IVC appears normal. GI tract: There are no acute CT bowel findings. There is no obstruction. The stomach and small bowel appear normal. There are scattered diverticula throughout the colon most numerous in the sigmoid colon. There is no CT evidence of acute diverticulitis. There is no obstruction. Pelvic organs: There is hysterectomy. There is no adnexal mass Bladder: There are no bladder masses. Abdominal and pelvic soft tissues: The extraperitoneal abdominal and pelvic soft tissues appear normal.. Osseous structures: There is further compression at T12 with resultant 70% loss in vertical dimension of the vertebrae. No additional significant bony findings are noted. Other: None IMPRESSION: 1. Abnormalities of the utilized inferior thorax to include bilateral pleural effusions with interval increase in size, bibasilar infiltrates, cardiomegaly and underlying emphysema. 2. Bilateral renal cysts, unchanged. 3. Scattered diverticula. No CT evidence of acute diverticulitis. 4. Hysterectomy.
[2017-11-15] MEDS: Levalbuterol 0.63MG/3ML NEB* UNIT OF USE INH PRN ×2 (15:34→21:24)
--- NOTE | 2017-11-15 16:18 | HP ---
CC: Dr. Glenys Das. * HISTORY AND PHYSICAL: DATE OF ADMISSION: 11/15/17 PRIMARY CARE PROVIDER: Dr. Glenys Das. ATTENDING PHYSICIAN: Dr. Theresa Jenkins * (dictated by Elizabeth Leon NP). CHIEF COMPLAINT: Cough for a week and generalized weakness starting this morning. HISTORY OF PRESENT ILLNESS: Ms. Holloway is an 87-year-old female with a past medical history significant for atrial fibrillation, cerebrovascular accident, hypertension, hyperlipidemia, hypothyroidism, GERD, COPD, history of glaucoma, legally blind, congestive heart failure, T12 compression fracture, pulmonary nodules, and monoclonal gammopathy who states that she has not been feeling well for approximately 1 week. She states that she was seen by her primary care provider on, she believes, Monday who thought that she could possibly have the flu and she was sent home. She reports an occasional cough that is nonproductive but moist. She reports shortness of breath that is increased above her base-line. She reports dry heaves and nausea, this has improved since being in the emergency room. She reports abdominal pain and abdominal discomfort since last week. She noted a generalized weakness this morning. She has been using her ProAir approximately 3 times daily. She denies any urinary symptoms such as dysuria, urgency, or frequency. Due to her symptoms and her weakness, her had her come to the emergency room for further evaluation. While in the emergency room, the patient had a chest x-ray showing multifocal bilateral consolidation. She had labs that were remarkable for a slightly elevated BNP from her baseline of 629. Urinalysis significant for 1+ leukocyte esterase, wbc's 1+, rbc's 3+, squamous epithelial cells present. There was supratherapeutic INR at 3.01. Based on her chest x-ray findings she received ceftriaxone and azithromycin for suspected pneumonia. The patient was also meeting sepsis criteria with tachycardia, tachypnea, fever of 101.2 rectally. She was also found to be hypoxic requiring supplemental oxygen at 6 L maintaining and her oxygen saturation in the low 90s. She is not on oxygen at baseline. She is reporting abdominal discomfort that resolved during her stay after some Zofran and the hospitalist were asked to evaluated the patient for admission. PAST MEDICAL HISTORY: 1. Atrial fibrillation. 2. CVA. 3. Hypertension. 4. Hyperlipidemia. 5. Hypothyroidism. 6. GERD. 7. History of skin cancer. 8. History of left bundle branch block. 9. COPD. 10. Glaucoma, legally blind. 11. Congestive heart failure. 12. T12 compression fracture. 13. Pulmonary nodules. 14. Monoclonal gammopathy. PAST SURGICAL HISTORY: 1. Status post breast biopsies. 2. Status post bunion surgery. 3. Status post excision of skin cancer from nose. 4. Status post section. 5. Status post appy. 6. Status post hysterectomy. 7. Status post ICD placement. HOME MEDICATIONS: Include: 1. Warfarin 6 mg oral daily on Sundays and Mondays. 2. Warfarin 4 mg oral daily on Tuesdays, Wednesdays, , Fridays, and Saturdays. 3. Spiriva 1 capsule inhalation daily. 4. Timolol 0.5% one drop to the right eye twice daily. 5. Simvastatin 20 mg oral daily. 6. Potassium chloride 20 mEq oral daily. 7. MiraLAX 17 g oral daily as needed for constipation. 8. Multivitamin 1 tablet oral daily. 9. Dulera 200/5 two puffs inhalation twice daily. 10. Levothyroxine 50 mcg oral every morning. 11. Furosemide 20 mg oral daily. 12. Folic acid 1 mg oral daily. 13. Escitalopram 5 mg oral daily. 14. Diltiazem CD 180 mg oral daily. 15. Caltrate 600+D one to two tablets oral daily. 16. Align 4 mg oral every morning as needed. 17. Atenolol 50 mg oral daily. 18. Acetaminophen 500 mg oral every 8 hours as needed for fever or pain. 19. Lactaid 4000 units 1 chewable as needed prior to dairy products. 20. Melatonin 1 tablet oral daily as needed at bedtime for sleep. 21. Prolia 60 units subcutaneous every 6 months. 22. ProAir 180 mcg one to two puffs inhalation every 6 hours as needed for shortness of breath. 23. Refresh eye drops daily as needed for dry eye. ALLERGIES: LUMIGAN, BRIMONIDINE, LEVAQUIN, SULFA, RESTORIL, TRAMADOL, AMOXICILLIN, NITROFURANTOIN, CIPRO, METRONIDAZOLE, LACTOSE INTOLERANCE, XARELTO. FAMILY HISTORY: Mother with a history of heart disease, brother with a history of heart disease living at age 96. Brother passed from an AR in his 80s. Denies any family history of diabetes mellitus. Her father in the 1930s from an unknown cancer. SOCIAL HISTORY: The patient is a former smoker. She had a 20-year smoking history, smoking 1 pack a day. She quit smoking in 1977. Denies alcohol or recreational drug use. Her Raúl Holloway will be her surrogate decision maker in the event she is unable to make decisions for herself. REVIEW OF SYSTEMS: I performed a 11-point review of systems. All the pertinent positives and negatives are mentioned in the history of present illness, remaining review of systems is negative. PHYSICAL EXAMINATION GENERAL APPEARANCE: The patient is alert, pleasant, appears to be in no acute distress. VITAL SIGNS: Temperature 98.9, heart rate 109, respiratory rate 28, and O2 sat 92% on 6 L via nasal cannula, and blood pressure 160/126. HEENT: Normocephalic and atraumatic. Pupils are equal and reactive to light. Extraocular movements are intact. RESPIRATORY: There is no accessory muscle use. The lungs have rhonchi bilaterally that improves with coughing and bibasilar crackles. CARDIOVASCULAR: Irregular rate and rhythm. Tachycardic. S1 and S2 present. No murmurs, rubs, or gallops heard. ABDOMEN: Soft, diffusely tender, slightly distended. There are bowel sounds positive x4. EXTREMITIES: There is no lower extremity edema. DP and PT pulses are 2+ and symmetric. NEUROLOGIC: The patient is alert and oriented. Cranial nerves II through XII are grossly intact. MUSCULOSKELETAL: There is no clubbing or cyanosis noted. The patient exhibits good strength in all extremities. PSYCHOLOGICAL: The patient is calm and cooperative. SKIN: There are no rashes or abnormalities seen. DIAGNOSTIC STUDIES/LABORATORY DATA: Sodium 138, potassium 3.8, chloride 106, CO2 of 24, BUN 16, creatinine 0.69, and glucose 124. White blood cell count 6.9 , hemoglobin 12.4, hematocrit 38, platelet count 127, INR 3.03, BNP 269, lactic acid 1.4. Urinalysis significant for 1+ leukocyte esterase, wbc's 1+, rbc's 3+ , squamous epithelial cells present, and bacteria absent. Chest x-ray from today, radiologist impression: Multifocal bilateral consolidation. Recommend followup until resolution to exclude underlying pulmonary parenchymal pathology. IMPRESSION: Ms. Holloway is an 87-year-old female with the past medical history significant for atrial fibrillation, cerebrovascular accident, hypertension, hyperlipidemia, hypothyroidism, GERD, skin cancer, left bundle branch block, COPD, glaucoma, legally blind, congestive heart failure, T12 compression fracture, pulmonary nodule, monoclonal gammopathy who presents to the emergency room with complaints of weakness that started this morning in addition to diffuse abdominal pain, fever, fatigue, and shortness of breath for a week. She will be admitted as an inpatient for pneumonia. ASSESSMENT/PLAN: 1. Pneumonia. The patient is currently meeting systemic inflammatory response syndrome criteria with fever, tachycardia, tachypnea. No leukocytosis at this time. She also has associated acute hypoxic respiratory failure and is requiring supplemental oxygen. She already received ceftriaxone and azithromycin in the emergency room in addition to 1500 fluid bolus in the emergency room. He lactic acid was 1.4. We will continue her on ceftriaxone and change the azithromycin to doxycycline in the setting of a prolonged QTc. We will get a sputum culture. Additionally, we will check her urine for S. pneumoniae and legionella. Continue gentle IV hydration overnight for 1 more liter, in the presence of her heart failure, I do not want to fluid overload her. 2. Suspected urinary tract infection. The patient has 1+ leukocyte esterase, 1 + wbc's, rbc's 3+, although the urinalysis shows bacteria absent. She will be continued on ceftriaxone for her pneumonia. This should cover her possible urinary tract infection also. She has no leukocytosis. 3. Atrial fibrillation. The patient is in atrial fibrillation with the rate in the low 100s. We will continue her on her home Cardizem. For now I am going to hold the patient's warfarin for tonight as she is slightly supratherapeutic with plans to resume the warfarin in the AM, if her INR is below 3. 4. Supratherapeutic INR. The patient's INR is slightly elevated today at 3.03. I will hold the dose of warfarin tonight with plans to resume her warfarin tomorrow if her INR is below 3. 5. Prolonged QTc. We will hold agents that can cause prolonged QTc, this includes her lexapro and changing azithromycin to doxycycline. We will recheck an EKG in the morning. 6. Congestive heart failure. The patient has no signs of acute heart failure exacerbation at this time. Will cautiously give her IV hydration in the setting of her sepsis and pneumonia. She already receive 1.5 L IV fluids in the emergency room and appears to have tolerated this well. Her last echo from 11/28/16 showed mildly decreased left ventricular systolic function with an EF of 45% to 50%. Resume her Lasix in the morning. Daily weights and strict I+O' s. 7. History of depression. We will hold the patient's Lexapro in the setting of her being on medications that will further prolong her QTc. 8. Chronic obstructive pulmonary disease. No signs of a chronic obstructive pulmonary disease exacerbation, as the patient does not have wheezing at this time. She will be continued on her home Spiriva and Dulera. She will have as needed Xopenex. I am going to avoid albuterol as she is already tachycardic. 9. Monoclonal gammopathy. The patient will continue to follow with Dr. Flores outpatient. 10. History of cerebrovascular accident. The patient will be continued on her statin and will be resumed back on her anticoagulant likely in the morning, once her INR is no longer supratherapeutic. 11. Hypothyroidism. Continued on her home levothyroxine. 12. Hyperlipidemia. Continued on her home statin. 13. Hypertension. The patient is slightly hypertensive at this time. We will continue to follow her blood pressure. She will be continued on her home Cardizem. 14. Fluids, electrolytes, and nutrition. The patient will be on a heart- healthy diet, low sodium. 15. Code status. Do not resuscitate. She has a MOLST on file. 16. DVT prophylaxis. She is at highest risk. At this time I am going to hold on DVT prophylaxis. She INR is currently supratherapeutic. She will be resumed on her warfarin in the morning after her INR has been given time to trend down. I will not use mechanical DVT prophylaxis in the setting of history of heart failure. 17. Disposition. Inpatient. TIME SPENT: Time for this admission was approximately 60 minutes, greater than half of that was spent [id number] with the patient and her discussing medications, past medical history, the events leading up to her arrival today, performing a physical examination. The case has been reviewed with the attending Dr. Jenkins who agrees with the plan of care. Reviewed by DAMIEN KRAUSE 11/16/17 1015 [id number]/[facility] #: [id number] ISHAN
[2017-11-15] MEDS: Atenolol TAB* 50 MG PO SCH (16:25)
[2017-11-15] MEDS: Diltiazem CD CAP* 180 MG PO SCH (16:25)
--- NOTE | 2017-11-15 17:35 | ED ---
Jhonatan Moreno Gabriel, scribed for Greg Dietrich MD on 11/15/17 at 1016 . Sepsis HPI - HPI Summary HPI Summary: This patient is a 87 year old F BIBA to [facility] accompanied by her with a chief complaint of weakness that began this morning. The patient rates the pain 6/10 in severity. Patient reports fever, diffuse ABD pain, general malaise, palpations, and SOB. Patient denies sores and CP. Hx COPD, PNA, and Afib - History of Current Complaint Chief Complaint: EDGeneral Stated Complaint: ABD PAIN Hx Obtained From: Patient, Family/Bus Aide Onset/Duration: Started Hours Ago Timing: Constant Onset Severity: Moderate Current Severity: Moderate Pain Intensity: 6 Pain Scale Used: 0-10 Numeric Associated Signs & Symptoms: Negative - CP, Other - fever, diffuse ABD pain, general malaise, - Additional Pertinent History Primary Care Physician: MAYELIN - Allergy/Home Medications Allergies/Adverse Reactions: Allergies Allergy/AdvReac Type Severity Reaction Status Date / Time bimatoprost [From Lumigan] Allergy See Comment Verified 11/15/17 14:26 brimonidine Allergy Unknown Verified 11/15/17 14:29 Reaction Details levofloxacin Allergy See Comment Verified 11/15/17 14:29 MS Tramadol [Tramadol] Allergy Unknown Verified 11/15/17 13:34 Reaction Details Sulfa (Sulfonamide Allergy Unknown Verified 11/15/17 14:29 Antibiotics) Reaction Details temazepam Allergy Unknown Verified 11/15/17 14:29 Reaction Details MS Amoxicillin [Amoxicillin] AdvReac Intermediate Diarrhea Verified 11/15/17 13: 34 MS Nitrofurantoin AdvReac Intermediate headaches Verified 11/15/17 13:34 [Nitrofurantoin] MS Ciprofloxacin [From Cipro] AdvReac Mild STOMACH Verified 11/15/17 13:34 ACHES MS Metronidazole AdvReac Mild STOMACH Verified 11/15/17 13:34 [Metronidazole] ACHES MS Lactose Intolerance AdvReac GI Upset Verified 11/15/17 13:34 [Lactose Intolerance] MS Rivaroxaban [From Xarelto] AdvReac See Comment Verified 11/15/17 13:34 Home Medications: Home Medications Acetaminophen TAB* [Tylenol TAB*] 975 mg PO Q8H PRN 11/15/17 [History Confirmed 11/15/17] Albuterol inh POWDER (NF) [Proair Respiclick] 1 - 2 puff INH Q6H PRN 11/15/17 [ History Confirmed 11/15/17] Denosumab(NF) [Prolia(NF)] 60 mg SUBCUT .[id number] 11/15/17 [History Confirmed ] Melatonin (NF) 1 tab PO BEDTIME PRN 11/15/17 [History Confirmed 11/15/17] Polyethylene Glycol 3350* [Miralax*] 17 gm PO DAILY PRN 11/15/17 [History Confirmed 11/15/17] Potassium Chlor TAB* [Potassium Chlor TAB 20 MEQ*] 20 meq PO DAILY 11/15/17 [ History Confirmed 11/15/17] Simvastatin (NF) [Zocor (NF)] 20 mg PO DAILY 11/15/17 [History Confirmed ] Warfarin TAB(*) [Coumadin TAB(*)] 4 mg PO TUWETHFRSA 11/15/17 [History Confirmed 11/15/17] Warfarin TAB(*) [Coumadin TAB(*)] 6 mg PO SUMO 11/15/17 [History Confirmed 11/15] PMH/Surg Hx/FS Hx/Imm Hx Endocrine/Hematology History: Reports: Hx Thyroid Disease Cardiovascular History: Reports: Hx Atrial Fibrillation, Hx Auto Implanted Cardiovert Defib, Hx Congestive Heart Failure, Hx Hypertension, Hx Pacemaker/ICD , Other Cardiovascular Problems/Disorders - A-fib Respiratory History: Reports: Hx Asthma, Hx Chronic Obstructive Pulmonary Disease (COPD), Hx Pneumonia GI History: Reports: Hx Diverticulosis, Hx Gastroesophageal Reflux Disease, Hx Irritable Bowel Musculoskeletal History: Reports: Hx Back Problems - General aches, Hx Osteoporosis Sensory History: Reports: Hx Cataracts, Hx Contacts or Glasses, Hx Legally Blind , Hx Vision Problem, Hx Deafness, Hx Hearing Aid, Hx Hearing Problem, Other Sensory Impairments - hx retinal detachment Opthamlomology History: Reports: Hx Cataracts, Hx Contacts or Glasses, Hx Legally Blind, Hx Vision Problem, Other Sensory Impairments - hx retinal detachment Neurological History: Reports: Other Neuro Impairments/Disorders - CVA 2006 - Cancer History Cancer Type, Location 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 BREAST BIOPSY x2, c-secton, hysterectomy , ICD, appe - Surgical History Surgery Procedure, Year, and Place: Hysterectomy. skin ca excision nose. Breast bx pt has a [id number]. bunion surgery. cataract surgery Infectious Disease History: No Infectious Disease History: Denies: Traveled Outside the [place] in Last 30 Days - Family History Known Family History: Positive: Cardiac Disease - Social History Occupation: Retired Lives: With Family Alcohol Use: Occasionally Alcohol Amount: With dinner, 2-3 oz Hx Substance Use: No Substance Use Type: Reports: None Hx Tobacco Use: Yes Smoking Status (MU): Former Smoker Type: Cigarettes Amount Used/How Often: 1 PPD Length of Time of Smoking/Using Tobacco: 35 Have You Smoked in the Last Year: No Review of Systems Constitutional: Other - general malaise Positive: Fever. Negative: Chills Negative: Erythema Negative: Sore Throat Positive: Palpitations. Negative: Chest Pain Positive: Shortness Of Breath, Cough Positive: Abdominal Pain. Negative: Vomiting, Nausea Negative: dysuria Negative: Myalgia Negative: Rash Neurological: Negative - dizziness Positive: Weakness All Other Systems Reviewed And Are Negative: Yes Physical Exam - Summary Physical Exam Summary: Constitutional: Well-developed, Ill-appearing, Alert. (-) Distressed Skin: Warm, Dry HENT: Normocephalic; Atraumatic Eyes: Conjunctiva normal Neck: Musculoskeletal ROM normal neck. (-) JVD, (-) Stridor, (-) Tracheal deviation Cardio: rapid irregualr HR, Heart sounds normal; Intact distal pulses; The pedal pulses are 2+ and symmetric. Radial pulses are 2+ and symmetric. (-) Murmur Pulmonary/Chest wall: bibasilar crackles Abd: Soft, (-) Tenderness, (-) Distension, (-) Guarding, (-) Rebound Musculoskeletal: (-) Edema Lymph: (-) Cervical adenopathy Neuro: Alert, Oriented x3 Psych: Mood and affect Normal Triage Information Reviewed: Yes Vital Signs On Initial Exam: Initial Vitals Temp Pulse Resp BP Pulse Ox 98.9 F 109 28 160/126 92 11/15/17 09:37 11/15/17 09:37 11/15/17 09:37 11/15/17 09:37 11/15/17 09:37 Vital Signs Reviewed: Yes Diagnostics - Vital Signs Vital Signs Temp Pulse Resp BP Pulse Ox 11/15/17 09:48 101.2 F 05/23/18 09:37 98.9 F 109 28 160/126 92 - Laboratory Result Diagrams: 11/15/17 10:49 11/15/17 10:49 Lab Statement: Any lab studies that have been ordered have been reviewed, and results considered in the medical decision making process. - Radiology CXR Radiology Interpretation Completed By: ED Physician - pulmonary vascular congest with left basal infiltrate, pace maker, Radiologist - MULTIFOCAL BILATERAL CONSOLIDATION. RECOMMEND FOLLOW-UP UNTIL RESOLUTION TO EXCLUDE UNDERLYING PULMONARY PARENCHYMAL PATHOLOGY. ED physician has reviewed this radiology report. - EKG 12:59 Cardiac Rate: Tachycardia - at 105 BPM EKG Rhythm: Sinus Tachycardia EKG Interpretation: Sinus tachycardia with irregular rate, left bundle branch block Sepsis Re-assessment - Sepsis Re-Assessment First Eval Re-Evaluation Time: 12:15 Patient's Vitals Signs: Vital Signs Temp Pulse Resp BP Pulse Ox 11/15/17 11:45 107 17 96 11/15/17 09:48 101.2 F 11/15/17 09:37 98.9 F 109 28 160/126 92 Cardiovascular: Tachycardia Pulmonary: Dyspnea, Cough Capillary Refill: Less than 3 Seconds Peripheral Pulses Present: Yes Course/Dx - Course Assessment/Plan: This patient is a 87 year old F BIBA to [facility] accompanied by her with a chief complaint of weakness that began this morning. The patient rates the pain 6/10 in severity. Patient reports fever, diffuse ABD pain , general malaise, palpations, and SOB. Patient denies sores and CP. Hx COPD, PNA, and Afib. CXR reveals, per radiologist, MULTIFOCAL BILATERAL CONSOLIDATION. RECOMMEND FOLLOW-UP UNTIL RESOLUTION TO. EXCLUDE UNDERLYING PULMONARY PARENCHYMAL PATHOLOGY. Heart rate responded to fluids. Based on the productive cough and infiltrates I suspect PNA. There is likely an element of CHF involved. ABD pain likely due to UTI. Lab results with without any significant abnormalities except for an elevated BNP. UA showed UTI. We discussed patient with Dr. Jenkins who will accept the patient for admission. The patient and her are agreeable with this plan. - Differential Dx/Clinical Impression Provider Diagnosis: Sepsis, Multifocal pneumonia, UTI (urinary tract infection) - Provider Notifications Discussed Care Of Patient With: Elizabeth Leon Time Discussed With Above Provider: 12:05 Instructed by Provider To: Admit As Inpatient - Critical Care Time Critical Care Time: 30-74 min Discharge - Sign-Out/Discharge Documenting (check all that apply): Discharge/Admit/Transfer - admitted to Dr. Jenkins - Discharge Plan Condition: Fair Disposition: ADMITTED TO [facility] The documentation as recorded by the Jhonatan traylor Gabriel accurately reflects the service I personally performed and the decisions made by me, Greg Dietrich MD.
[2017-11-15] MEDS: Mometasone/Formoter 200/5 MDI INH SCH (20:59)
[2017-11-15] MEDS ORDERED: Furosemide IV* 10 MG/ML VIAL (40 MG) IV ONE (21:42)
[2017-11-15] MEDS: Timolol 0.5% OPTH.SOL* BTL RIGHT EYE SCH (21:43)
--- NOTE | 2017-11-15 21:52 | PN ---
Progress Note - Progress Note Date of Service: 11/15/17 Note: I was called to see Ms Holloway due to concerns of increased work of breathing, ineffective cough and worsened hypoxic respiratory failure. She is saturating only 88% on 15L oxymask. When I evaluate the patient she is awake, alert, oriented to situation. She appears to be in mild distress but is able to speak a few words at a time. She has a very weak cough. Diffuse crackles heard anteriorly but diminished breath sounds at the bases posteriorly. Will transfer the patient to the ICU for BiPAP (pt agrees). Repeat pCXR now to eval for possible worsened infiltrates possibly secondary to pulmonary edema. Will give lasix 40mg IV x1 now. Place newman for hemodynamic monitoring. Continue Abx coverage for possible pneumonia. Add procalcitonin to labs drawn earlier today.
[2017-11-16 05:55] LABS: ABS Basophils 0 10^3/ul (0-0.2); ABS Eosinophils 0 10^3/ul (0-0.6); ABS Lymphocytes 0.4 10^3/ul (1.0-4.8); ABS Monocytes 0.4 10^3/ul (0-0.8); ABS Neutrophils 6.3 10^3/ul (1.5-7.7); ABS Nucleated RBC 0 10^3/ul; Eosinophil % 0 % (0-6); Hematocrit 38 % (35-47); Hemoglobin 12.8 g/dl (12.0-16.0); Mean Corpuscular HGB Conc 34 g/dl (31-36); Mean Corpuscular Hemoglobin 29 pg (27-31); Mean Corpuscular Volume 87 fL (80-97); Mean Platelet Volume 7.3 um3 (7.4-10.4); Nucleated Red Blood Cells % 0.1; Platelet Count 160 10^3/ul (150-450); Red Blood Count 4.37 10^6/ul (4.0-5.4); Red Cell Distribution Width 19 % (10.5-15); White Blood Count 7.1 10^3/ul (3.5-10.8)
[2017-11-16 06:03] LABS: INR 2.88 (0.77-1.02)
[2017-11-16] MEDS: Levothyroxine TAB* 50 MCG TAB PO SCH (06:03)
[2017-11-16 06:14] LABS: EGFR Non-African American 75.2 (>60)
--- NOTE | 2017-11-16 07:39 | RAD ---
HISTORY: Evaluate for worsened infiltrate COMPARISONS: November 15, 2017 at 10:07 AM VIEWS: 1: frontal portable view of the chest at 9:48 PM FINDINGS: LINES AND TUBES: A left-sided pacemaker is noted. CARDIOMEDIASTINAL SILHOUETTE: The cardiac silhouette is enlarged. The cardiomediastinal silhouette is otherwise normal for portable technique. PLEURA: The costophrenic angles are sharp. No pleural abnormalities are noted. LUNG PARENCHYMA: There has been progression of confluent alveolar opacification within the right mid and lower lung. There is persistent confluent alveolar opacification of the left mid and lower lung. ABDOMEN: The upper abdomen is clear. There is no subphrenic gas. BONES AND SOFT TISSUES: No bone or soft tissue abnormalities are noted. IMPRESSION: PROGRESSION OF BILATERAL CONSOLIDATION.
[2017-11-16] MEDS ORDERED: Spiriva Inhaler DEVICE* 1 EACH DEVICE INH ONE (09:00)
[2017-11-16] MEDS ORDERED: Diltiazem CD CAP* 180 MG PO SCH (09:00)
[2017-11-16] MEDS ORDERED: Atenolol TAB* 50 MG PO SCH (09:00)
[2017-11-16] MEDS ORDERED: NS 0.9% 250 ML* 250 ML ONE (09:13)
[2017-11-16] MEDS: Mometasone/Formoter 200/5 MDI INH SCH ×2 (09:17→19:33)
[2017-11-16] MEDS: Tiotropium CAP.INH* CAP.INH/18 MCG (USE ORDER SET !) INH SCH (09:19)
[2017-11-16] MEDS: Folic Acid TAB* 1 MG PO SCH (09:27)
[2017-11-16] MEDS: Furosemide TAB* 20 MG PO SCH (09:27)
[2017-11-16] MEDS: Atenolol TAB* 50 MG PO SCH (09:27)
[2017-11-16] MEDS: Diltiazem CD CAP* 180 MG PO SCH (09:27)
[2017-11-16] MEDS: Potassium Chlor TAB* 20 MEQ TAB.ER PO SCH (09:27)
[2017-11-16] MEDS: Atorvastatin* 10 MG TAB PO SCH (09:27)
[2017-11-16] MEDS: Timolol 0.5% OPTH.SOL* BTL RIGHT EYE SCH ×2 (09:28→20:06)
[2017-11-16] MEDS: DOXYcycline IV* 100 MG in NS 0.9% 250 ML* 250 ML IVPB SCH ×2 (09:34→20:06)
[2017-11-16] MEDS: Multivitamins/Minerals TAB PO SCH (09:54)
[2017-11-16] MEDS: Levalbuterol 0.63MG/3ML NEB* UNIT OF USE INH PRN (10:45)
[2017-11-16] MEDS ORDERED: Potassium Chlor TAB* 20 MEQ TAB.ER PO ONE (10:49)
[2017-11-16] MEDS ORDERED: Azithromycin IV(*) 500 MG in D5W 250 ML BAG* 250 ML IVPB SCH (11:00)
--- NOTE | 2017-11-16 11:16 | PN ---
Subjective Date of Service: 11/16/17 Interval History: Seen with and daughter at bedside All agree she looks better Patient feels better. Still SOB but not in distress Abdominal pain improved but not resolved Off BiPAP Objective Active Medications: Acetaminophen (Tylenol Tab*) 650 mg PO Q4H PRN PRN Reason: FEVER/PAIN Atenolol (Tenormin Tab*) 50 mg PO DAILY [facility] Last Admin: 11/16/17 09:27 Dose: 50 mg Atorvastatin Calcium (Lipitor*) 10 mg PO DAILY [facility] Last Admin: 11/16/17 09:27 Dose: 10 mg Diltiazem HCl (Cardizem Cd Cap*) 180 mg PO DAILY [facility] Last Admin: 11/16/17 09:27 Dose: 180 mg Escitalopram Oxalate (Lexapro (Nf)) 5 mg PO DAILY [facility] PRN Reason: Protocol Folic Acid (Folvite Tab*) 1 mg PO DAILY [facility] Last Admin: 11/16/17 09:27 Dose: 1 mg Furosemide (Lasix Tab*) 20 mg PO DAILY [facility] Last Admin: 11/16/17 09:27 Dose: 20 mg Ceftriaxone Sodium 1 gm/ (Sodium Chloride) 50 mls @ 200 mls/hr IVPB Q24H [facility] Doxycycline Hyclate 100 mg/ (Sodium Chloride) 250 mls @ 250 mls/hr IVPB Q12H [facility] Last Admin: 11/16/17 09:34 Dose: 250 mls/hr Levalbuterol HCl (Xopenex 0.63mg/3ml Neb*) 0.63 mg INH Q4H PRN PRN Reason: SOB/WHEEZING Last Admin: 11/16/17 10:45 Dose: 0.63 mg Levothyroxine Sodium (Synthroid Tab*) 50 mcg PO 0600 [facility] Last Admin: 11/16/17 06:03 Dose: 50 mcg Melatonin (Melatonin (Nf)) 3 mg PO BEDTIME PRN PRN Reason: SLEEP Mometasone Furoate/Formoterol Fumar (Dulera 200/5 Mdi*) 2 puff INH BID [facility] Last Admin: 11/16/17 09:17 Dose: 2 puff Multivitamins/Minerals (Theragran/Minerals Tab*) 1 tab PO DAILY [facility] Last Admin: 11/16/17 09:54 Dose: 1 tab Polyethylene Glycol/Electrolytes (Miralax*) 17 gm PO DAILY PRN PRN Reason: CONSTIPATION Potassium Chloride (Klor Con Er Tab*) 20 meq PO DAILY [facility] Last Admin: 11/16/17 09:27 Dose: 20 meq Timolol Maleate (Timoptic 0.5% Opth*) 1 drop RIGHT EYE BID [facility] Last Admin: 11/16/17 09:28 Dose: 1 drop Tiotropium [place] (Spiriva Cap.Inh*) 1 cap INH DAILY [facility] Last Admin: 11/16/17 09:19 Dose: Not Given Warfarin Sodium (Coumadin Tab(*)) 4 mg PO TUWETHFRSA [facility] PRN Reason: Protocol Warfarin Sodium (Coumadin Tab(*)) 6 mg PO SUMO [facility] PRN Reason: Protocol Vital Signs - 8 hr 11/16/17 11/16/17 11/16/17 03:16 04:00 04:48 Temperature 98.9 F Pulse Rate 80 82 Respiratory 24 24 Rate Blood Pressure 168/100 (mmHg) O2 Sat by Pulse 98 99 Oximetry 11/16/17 11/16/17 11/16/17 05:00 06:00 07:00 Temperature Pulse Rate 85 93 86 Respiratory 22 26 21 Rate Blood Pressure 166/100 150/93 148/92 (mmHg) O2 Sat by Pulse 97 95 93 Oximetry 11/16/17 11/16/17 11/16/17 08:00 08:37 09:00 Temperature 99.0 F Pulse Rate 85 91 Respiratory 21 21 Rate Blood Pressure 155/89 141/95 (mmHg) O2 Sat by Pulse 96 94 Oximetry 11/16/17 10:48 Temperature Pulse Rate 84 Respiratory 22 Rate Blood Pressure (mmHg) O2 Sat by Pulse 95 Oximetry Oxygen Devices in Use Now: Nasal Cannula - 8L Appearance: sitting up, interactive, NAD Eyes: No Scleral Icterus, PERRLA Ears/Nose/Mouth/Throat: Clear Oropharnyx, Mucous Membranes Moist Neck: NL Appearance and Movements; NL JVP, Trachea Midline Respiratory: Symmetrical Chest Expansion and Respiratory Effort, - - rhonchi bases up 1/2 bilaterally Cardiovascular: - - IRIR Abdominal: NL Sounds; No Tenderness; No Distention, No Hepatosplenomegaly Lymphatic: No Cervical Adenopathy Extremities: No Edema Skin: No Rash or Ulcers Neurological: Alert and Oriented x 3, - - mild right ptosis Result Diagrams: 11/16/17 05:45 05/24/18 05:45 Microbiology and Other Data: Microbiology 11/15/17 22:40 Nasal Screen MRSA (PCR)([facility]) - Final Nasal Mrsa Not Detected 11/15/17 23:23 Legionella Urinary Antigen - Final Urine Negative Legionella Antigen Streptococcus pneumoniae Ag Screen - Final Negative S. pneumo Antigen Assess/Plan/Problems-Billing Assessment: 87 F h/o afib, HTN, sCHF, COPD, blindness p/w abdominal pain found with multifocal PNA with stay complicated by hypoxic respiratory failure requiring ICU transfer and BiPAP overnight - Patient Problems (1) Acute respiratory failure with hypoxia Comment: Suspect PNA with combined acute sCHG exacerbation after arrival and fluid rescucitation BiPAP overnigh 11/16 now off and on NC, tolerating well treatment of PNA as below (2) Pneumonia Comment: bilater multifocal No WBC and procalcitonin nominal +fever on presentation continue CTX and doxycycline (3) Afib Comment: Rate is controlled. Continue Diltiazem, Atenolol restart Warfarin and check INR in AM (4) CHF (congestive heart failure) Comment: received lasix overnight with BiPAP and with imrpoved respiratory status Maintain newman lasix 20mg PO (5) DVT prophylaxis Current Visit: No Status: Acute Code(s): EWV9546 - SNOMED Code(s): 247697389 Comment: coumadin Status and Disposition: inpatient
[2017-11-16] MEDS: cefTRIAXone(*) 1 GM in NS 0.9% 50 ML* 50 ML IVPB SCH (12:19)
[2017-11-16] MEDS ORDERED: Furosemide IV* 10 MG/ML 2 ML VIAL (20 MG) IV SLOW PU ONE (16:48)
[2017-11-16] MEDS ORDERED: Warfarin TAB(*) 4 MG PO SCH (17:00)
[2017-11-17 05:54] LABS: Hematocrit 33 % (35-47); Hemoglobin 10.8 g/dl (12.0-16.0); Mean Corpuscular HGB Conc 33 g/dl (31-36); Mean Corpuscular Hemoglobin 28 pg (27-31); Mean Corpuscular Volume 86 fL (80-97); Mean Platelet Volume 7.2 um3 (7.4-10.4); Platelet Count 147 10^3/ul (150-450); Red Blood Count 3.83 10^6/ul (4.0-5.4); Red Cell Distribution Width 19 % (10.5-15); White Blood Count 5.5 10^3/ul (3.5-10.8)
[2017-11-17 05:58] LABS: INR 2.18 (0.77-1.02)
[2017-11-17] MEDS: Levothyroxine TAB* 50 MCG TAB PO SCH (06:04)
[2017-11-17 06:05] LABS: EGFR Non-African American 81.7 (>60)
[2017-11-17] MEDS: Tiotropium CAP.INH* CAP.INH/18 MCG (USE ORDER SET !) INH SCH (07:56)
[2017-11-17] MEDS: Mometasone/Formoter 200/5 MDI INH SCH ×2 (07:56→19:50)
[2017-11-17] MEDS: DOXYcycline IV* 100 MG in NS 0.9% 250 ML* 250 ML IVPB SCH ×2 (08:07→20:52)
[2017-11-17] MEDS: Citalopram TAB* 10 MG PO SCH (08:13)
[2017-11-17] MEDS: Atorvastatin* 10 MG TAB PO SCH (08:13)
[2017-11-17] MEDS: Multivitamins/Minerals TAB PO SCH (08:14)
[2017-11-17] MEDS: Folic Acid TAB* 1 MG PO SCH (08:14)
[2017-11-17] MEDS: Furosemide TAB* 20 MG PO SCH (08:14)
[2017-11-17] MEDS: Potassium Chlor TAB* 20 MEQ TAB.ER PO SCH (08:14)
[2017-11-17] MEDS: Atenolol TAB* 50 MG PO SCH (08:15)
[2017-11-17] MEDS: Timolol 0.5% OPTH.SOL* BTL RIGHT EYE SCH ×2 (08:15→20:52)
[2017-11-17] MEDS: Diltiazem CD CAP* 180 MG PO SCH (08:15)
[2017-11-17] MEDS: cefTRIAXone(*) 1 GM in NS 0.9% 50 ML* 50 ML IVPB SCH (11:49)
--- NOTE | 2017-11-17 16:18 | PN ---
Subjective Date of Service: 11/17/17 Interval History: Less cough, no sputum. Less SOB. Appetite OK. No BM since admission. Objective Active Medications: Acetaminophen (Tylenol Tab*) 650 mg PO Q4H PRN PRN Reason: FEVER/PAIN Atenolol (Tenormin Tab*) 50 mg PO DAILY [facility] Last Admin: 11/17/17 08:15 Dose: 50 mg Atorvastatin Calcium (Lipitor*) 10 mg PO DAILY [facility] Last Admin: 11/17/17 08:13 Dose: 10 mg Citalopram Hydrobromide (Celexa Tab*) 10 mg PO DAILY [facility] PRN Reason: Protocol Last Admin: 11/17/17 08:13 Dose: 10 mg Diltiazem HCl (Cardizem Cd Cap*) 180 mg PO DAILY [facility] Last Admin: 11/17/17 08:15 Dose: 180 mg Folic Acid (Folvite Tab*) 1 mg PO DAILY [facility] Last Admin: 11/17/17 08:14 Dose: 1 mg Furosemide (Lasix Tab*) 20 mg PO DAILY [facility] Last Admin: 11/17/17 08:14 Dose: 20 mg Ceftriaxone Sodium 1 gm/ (Sodium Chloride) 50 mls @ 200 mls/hr IVPB Q24H [facility] Last Admin: 11/17/17 11:49 Dose: 200 mls/hr Doxycycline Hyclate 100 mg/ (Sodium Chloride) 250 mls @ 250 mls/hr IVPB Q12H [facility] Last Admin: 11/17/17 08:07 Dose: 250 mls/hr Levalbuterol HCl (Xopenex 0.63mg/3ml Neb*) 0.63 mg INH Q4H PRN PRN Reason: SOB/WHEEZING Last Admin: 11/16/17 10:45 Dose: 0.63 mg Levothyroxine Sodium (Synthroid Tab*) 50 mcg PO 0600 [facility] Last Admin: 11/17/17 06:04 Dose: 50 mcg Melatonin (Melatonin (Nf)) 3 mg PO BEDTIME PRN PRN Reason: SLEEP Last Admin: 11/16/17 22:21 Dose: 3 mg Mometasone Furoate/Formoterol Fumar (Dulera 200/5 Mdi*) 2 puff INH BID [facility] Last Admin: 11/17/17 07:56 Dose: 2 puff Multivitamins/Minerals (Theragran/Minerals Tab*) 1 tab PO DAILY [facility] Last Admin: 11/17/17 08:14 Dose: 1 tab Pharmacy Profile Note (Coumadin Daily Reminder*) 1 note FOLLOW UP 1700 [facility] Last Admin: 11/16/17 16:51 Dose: 1 note Polyethylene Glycol/Electrolytes (Miralax*) 17 gm PO DAILY PRN PRN Reason: CONSTIPATION Potassium Chloride (Klor Con Er Tab*) 20 meq PO DAILY [facility] Last Admin: 11/17/17 08:14 Dose: 20 meq Timolol Maleate (Timoptic 0.5% Opth*) 1 drop RIGHT EYE BID [facility] Last Admin: 11/17/17 08:15 Dose: 1 drop Tiotropium [place] (Spiriva Cap.Inh*) 1 cap INH DAILY [facility] Last Admin: 11/17/17 07:56 Dose: 1 cap Warfarin Sodium (Coumadin Tab(*)) 3 mg PO DAILY@1700 [facility] PRN Reason: Protocol Vital Signs - 8 hr 11/17/17 11/17/17 11/17/17 09:00 10:00 10:45 Temperature Pulse Rate 87 82 Respiratory 22 21 Rate Blood Pressure 128/76 143/71 (mmHg) O2 Sat by Pulse 96 98 97 Oximetry 11/17/17 11/17/17 11/17/17 11:00 11:39 12:00 Temperature Pulse Rate 77 72 Respiratory 19 18 18 Rate Blood Pressure 134/82 133/74 (mmHg) O2 Sat by Pulse 96 96 Oximetry 11/17/17 11/17/17 11/17/17 12:08 13:00 13:51 Temperature 97.1 F Pulse Rate 78 Respiratory 22 22 Rate Blood Pressure 129/83 (mmHg) O2 Sat by Pulse 96 Oximetry 11/17/17 11/17/17 11/17/17 14:00 14:08 14:16 Temperature Pulse Rate 74 Respiratory 20 Rate Blood Pressure 108/63 (mmHg) O2 Sat by Pulse 95 96 96 Oximetry 11/17/17 11/17/17 11/17/17 14:56 15:00 16:00 Temperature Pulse Rate 80 Respiratory 17 17 Rate Blood Pressure 118/63 (mmHg) O2 Sat by Pulse 97 93 Oximetry 11/17/17 16:02 Temperature 98.9 F Pulse Rate Respiratory Rate Blood Pressure (mmHg) O2 Sat by Pulse Oximetry Oxygen Devices in Use Now: High Flow Nasal Cannula Appearance: Alert, partly up in bed. In good spirits. Appears comfortable but weak. Eyes: No Scleral Icterus Neck: NL Appearance and Movements; NL JVP, No Thyroid Enlargement, Masses Respiratory: Symmetrical Chest Expansion and Respiratory Effort, Clear to Auscultation, Clear to Percussion Cardiovascular: NL Sounds; No Murmurs; No JVD, RRR, No Edema Extremities: No Edema, No Clubbing, Cyanosis, - Skin: No Rash or Ulcers, No Nodules or Sclerosis, - Neurological: Alert and Oriented x 3, NL Sensation Result Diagrams: 11/17/17 05:31 11/17/17 05:31 Microbiology and Other Data: Microbiology 11/15/17 22:40 Nasal Screen MRSA (PCR)([facility]) - Final Nasal Mrsa Not Detected 11/15/17 23:23 Legionella Urinary Antigen - Final Urine Negative Legionella Antigen Streptococcus pneumoniae Ag Screen - Final Negative S. pneumo Antigen Assess/Plan/Problems-Billing Assessment: 87 F h/o afib, HTN, sCHF, COPD, blindness p/w abdominal pain found with multifocal PNA with stay complicated by hypoxic respiratory failure requiring ICU transfer and BiPAP overnight - Patient Problems (1) Pneumonia Current Visit: Yes Status: Acute Code(s): J18.9 - PNEUMONIA, UNSPECIFIED ORGANISM SNOMED Code(s): 413147706 Comment: bilater multifocal No WBC and procalcitonin nominal +fever on presentation continue CTX and doxycycline (2) Afib Current Visit: Yes Status: Acute Code(s): I48.91 - UNSPECIFIED ATRIAL FIBRILLATION SNOMED Code(s): 47928688 Comment: Rate is controlled. Continue Diltiazem, Atenolol Warfarin reduced to 3 mg daily start 11/17 due to concurrent antibiotics, ? adequate diet. (3) CHF (congestive heart failure) Current Visit: Yes Status: Acute Code(s): I50.9 - HEART FAILURE, UNSPECIFIED SNOMED Code(s): 89237584 Comment: received lasix overnight with BiPAP and with imrpoved respiratory status Remove newman 11/18. Continue lasix 20mg PO daily. Status and Disposition: inpatient
[2017-11-17] MEDS: Warfarin TAB(*) 3 MG PO SCH (17:04)
[2017-11-17] MEDS ORDERED: NS 0.9% 250 ML* 250 ML ONE (20:28)
[2017-11-17] MEDS: Polyethylene Glycol 3350* 17 GM PACKET PO SCH (20:52)
[2017-11-18] MEDS: Levothyroxine TAB* 50 MCG TAB PO SCH (05:51)
[2017-11-18] MEDS: DOXYcycline IV* 100 MG in NS 0.9% 250 ML* 250 ML IVPB SCH ×2 (08:19→20:07)
[2017-11-18] MEDS: Mometasone/Formoter 200/5 MDI INH SCH ×2 (08:30→20:58)
[2017-11-18] MEDS: Tiotropium CAP.INH* CAP.INH/18 MCG (USE ORDER SET !) INH SCH (08:30)
[2017-11-18] MEDS: Levalbuterol 0.63MG/3ML NEB* UNIT OF USE INH PRN ×2 (08:30→23:27)
[2017-11-18] MEDS ORDERED: Levalbuterol 1.25 mg/3 mL (NF) 1.25 MG/3 ML NEB.SOLN INH PRN (08:52)
--- NOTE | 2017-11-18 08:57 | PN ---
Subjective Date of Service: 11/18/17 Interval History: Some sputum overnight, coughed much overnight. OK this AM. Objective Active Medications: Acetaminophen (Tylenol Tab*) 650 mg PO Q4H PRN PRN Reason: FEVER/PAIN Atenolol (Tenormin Tab*) 50 mg PO DAILY [facility] Last Admin: 11/17/17 08:15 Dose: 50 mg Atorvastatin Calcium (Lipitor*) 10 mg PO DAILY [facility] Last Admin: 11/17/17 08:13 Dose: 10 mg Benzonatate (Tessalon Cap*) 200 mg PO BEDTIME [facility] Citalopram Hydrobromide (Celexa Tab*) 10 mg PO DAILY [facility] PRN Reason: Protocol Last Admin: 11/17/17 08:13 Dose: 10 mg Diltiazem HCl (Cardizem Cd Cap*) 180 mg PO DAILY [facility] Last Admin: 11/17/17 08:15 Dose: 180 mg Folic Acid (Folvite Tab*) 1 mg PO DAILY [facility] Last Admin: 11/17/17 08:14 Dose: 1 mg Furosemide (Lasix Tab*) 20 mg PO DAILY [facility] Last Admin: 11/17/17 08:14 Dose: 20 mg Ceftriaxone Sodium 1 gm/ (Sodium Chloride) 50 mls @ 200 mls/hr IVPB Q24H [facility] Last Admin: 11/17/17 11:49 Dose: 200 mls/hr Doxycycline Hyclate 100 mg/ (Sodium Chloride) 250 mls @ 250 mls/hr IVPB Q12H [facility] Last Admin: 11/18/17 08:19 Dose: 250 mls/hr Levalbuterol HCl (Levalbuterol Hcl) 1.25 mg INH Q4H PRN PRN Reason: DYSPNEA Levothyroxine Sodium (Synthroid Tab*) 50 mcg PO 0600 [facility] Last Admin: 11/18/17 05:51 Dose: 50 mcg Mometasone Furoate/Formoterol Fumar (Dulera 200/5 Mdi*) 2 puff INH BID [facility] Last Admin: 11/18/17 08:30 Dose: 2 puff Multivitamins/Minerals (Theragran/Minerals Tab*) 1 tab PO DAILY [facility] Last Admin: 11/17/17 08:14 Dose: 1 tab Pharmacy Profile Note (Coumadin Daily Reminder*) 1 note FOLLOW UP 1700 [facility] Last Admin: 11/17/17 19:36 Dose: 1 note Polyethylene Glycol/Electrolytes (Miralax*) 17 gm PO DAILY PRN PRN Reason: CONSTIPATION Polyethylene Glycol/Electrolytes (Miralax*) 17 gm PO BID [facility] Last Admin: 11/17/17 20:52 Dose: 17 gm Potassium Chloride (Klor Con Er Tab*) 20 meq PO DAILY [facility] Last Admin: 11/17/17 08:14 Dose: 20 meq Timolol Maleate (Timoptic 0.5% Opth*) 1 drop RIGHT EYE BID [facility] Last Admin: 11/17/17 20:52 Dose: 1 drop Tiotropium [place] (Spiriva Cap.Inh*) 1 cap INH DAILY [facility] Last Admin: 11/18/17 08:30 Dose: 1 cap Warfarin Sodium (Coumadin Tab(*)) 3 mg PO DAILY@1700 [facility] PRN Reason: Protocol Last Admin: 11/17/17 17:04 Dose: 3 mg Vital Signs - 8 hr 11/18/17 11/18/17 11/18/17 01:00 02:00 03:00 Temperature Pulse Rate 77 75 72 Respiratory 18 21 19 Rate Blood Pressure 148/90 144/95 133/80 (mmHg) O2 Sat by Pulse 98 99 94 Oximetry 11/18/17 11/18/17 11/18/17 03:23 04:00 05:00 Temperature 98.4 F Pulse Rate 76 84 Respiratory 17 22 Rate Blood Pressure 136/92 141/85 (mmHg) O2 Sat by Pulse 93 94 Oximetry 11/18/17 11/18/17 11/18/17 06:00 07:00 08:00 Temperature Pulse Rate 76 86 99 Respiratory 19 20 19 Rate Blood Pressure 132/81 137/87 147/86 (mmHg) O2 Sat by Pulse 95 94 96 Oximetry Oxygen Devices in Use Now: High Flow Nasal Cannula Appearance: Alert, partly up in ICU bed. In good spirits. Looks comfortable. No cough during my visit. Eyes: No Scleral Icterus Respiratory: Symmetrical Chest Expansion and Respiratory Effort, Clear to Auscultation, Clear to Percussion Cardiovascular: NL Sounds; No Murmurs; No JVD, No Edema, - - irreg Extremities: No Edema, No Clubbing, Cyanosis, - Skin: No Rash or Ulcers, No Nodules or Sclerosis, - Neurological: Alert and Oriented x 3, NL Sensation, - - diminished hearing Result Diagrams: 11/17/17 05:31 11/17/17 05:31 Microbiology and Other Data: Microbiology 11/15/17 22:40 Nasal Screen MRSA (PCR)([facility]) - Final Nasal Mrsa Not Detected 11/15/17 23:23 Legionella Urinary Antigen - Final Urine Negative Legionella Antigen Streptococcus pneumoniae Ag Screen - Final Negative S. pneumo Antigen Assess/Plan/Problems-Billing Assessment: 87 F h/o afib, HTN, sCHF, COPD, blindness p/w abdominal pain found with multifocal PNA with stay complicated by hypoxic respiratory failure requiring ICU transfer and BiPAP overnight - Patient Problems (1) Pneumonia Current Visit: Yes Status: Acute Code(s): J18.9 - PNEUMONIA, UNSPECIFIED ORGANISM SNOMED Code(s): 032138235 Comment: bilater multifocal No WBC and procalcitonin nominal +fever on presentation continue CTX and doxycycline No BIPAP for over 24 hrs as of 11/18. (2) Afib Current Visit: Yes Status: Acute Code(s): I48.91 - UNSPECIFIED ATRIAL FIBRILLATION SNOMED Code(s): 13353109 Comment: Rate is controlled. Continue Diltiazem, Atenolol Warfarin reduced to 3 mg daily start 11/17 due to concurrent antibiotics, ? adequate diet. INR 11/18. (3) CHF (congestive heart failure) Current Visit: Yes Status: Acute Code(s): I50.9 - HEART FAILURE, UNSPECIFIED SNOMED Code(s): 19382878 Comment: received lasix overnight with BiPAP and with imrpoved respiratory status Remove newman 11/18. Continue lasix 20mg PO daily. (4) Weakness Current Visit: Yes Status: Acute Code(s): R53.1 - WEAKNESS SNOMED Code(s) : 74803383 Comment: PT/OT eval requested. Status and Disposition: inpatient
[2017-11-18] MEDS: Diltiazem CD CAP* 180 MG PO SCH (08:58)
[2017-11-18] MEDS: Potassium Chlor TAB* 20 MEQ TAB.ER PO SCH (08:58)
[2017-11-18] MEDS: Citalopram TAB* 10 MG PO SCH (08:58)
[2017-11-18] MEDS: Folic Acid TAB* 1 MG PO SCH (08:58)
[2017-11-18] MEDS: Atorvastatin* 10 MG TAB PO SCH (08:58)
[2017-11-18] MEDS: Atenolol TAB* 50 MG PO SCH (08:58)
[2017-11-18] MEDS: Multivitamins/Minerals TAB PO SCH (08:58)
[2017-11-18] MEDS: Furosemide TAB* 20 MG PO SCH (08:58)
[2017-11-18] MEDS: Polyethylene Glycol 3350* 17 GM PACKET PO SCH ×2 (09:07→20:09)
[2017-11-18] MEDS: Timolol 0.5% OPTH.SOL* BTL RIGHT EYE SCH ×2 (09:58→20:32)
[2017-11-18] MEDS: cefTRIAXone(*) 1 GM in NS 0.9% 50 ML* 50 ML IVPB SCH (12:30)
[2017-11-18] MEDS: Warfarin TAB(*) 3 MG PO SCH (17:15)
[2017-11-18] MEDS: Benzonatate CAP* 100 MG PO SCH (20:09)
[2017-11-18] MEDS ORDERED: ALPRAZolam TAB* 0.25 MG PO ONE (20:47)
[2017-11-19] MEDS ORDERED: Furosemide IV* 10 MG/ML VIAL (40 MG) IV ONE (01:38)
--- NOTE | 2017-11-19 01:40 | PN ---
Progress Note - Progress Note Date of Service: 11/19/17 Note: Nursing & RT requested evaluation for increased tachypnea & RR. Upon evaluation , Mrs Holloway has increased SOB, no chest pain, palpitations, or other cardiac s/ s. Repeat CXR shows interval worsening of pleural effusions. Lungs are rhonchorous w/o significant crackles. Plan to transfer to ICU for BiPap and IV furosemide diuresis.
[2017-11-19] MEDS: Morphine VIAL* 4 MG/ML VIAL (1 ml vial) IV PRN ×2 (02:40→22:28)
[2017-11-19] MEDS ORDERED: Potassium Chlor TAB* 20 MEQ TAB.ER PO ONE (03:10)
[2017-11-19] MEDS: Levothyroxine TAB* 50 MCG TAB PO SCH (06:07)
[2017-11-19 06:35] LABS: INR 2.43 (0.77-1.02)
--- NOTE | 2017-11-19 08:09 | RAD ---
INDICATION: Short of breath COMPARISON: November 15, 2017 TECHNIQUE: An AP portable view obtained at 0128 hours is submitted. FINDINGS: Bones/Soft Tissues: There are no acute bony findings. There is left-sided cardiac pacemaker Cardiomediastinal: The heart is normal in size. The pulmonary vessels and interstitium are prominent. Lungs: Interstitial and alveolar edema with mild worsening. Pleura: Moderate bilateral pleural effusions. Other: None IMPRESSION: INTERSTITIAL AND ALVEOLAR EDEMA WITH WORSENING.
[2017-11-19] MEDS: Folic Acid TAB* 1 MG PO SCH (08:43)
[2017-11-19] MEDS: Atenolol TAB* 50 MG PO SCH (08:43)
[2017-11-19] MEDS: Multivitamins/Minerals TAB PO SCH (08:43)
[2017-11-19] MEDS: DOXYcycline IV* 100 MG in NS 0.9% 250 ML* 250 ML IVPB SCH ×2 (08:43→20:14)
[2017-11-19] MEDS: Diltiazem CD CAP* 180 MG PO SCH (08:43)
[2017-11-19] MEDS: Citalopram TAB* 10 MG PO SCH (08:43)
[2017-11-19] MEDS: Furosemide TAB* 20 MG PO SCH (08:43)
[2017-11-19] MEDS: Atorvastatin* 10 MG TAB PO SCH (08:43)
[2017-11-19] MEDS: Potassium Chlor TAB* 20 MEQ TAB.ER PO SCH (08:43)
[2017-11-19] MEDS: Timolol 0.5% OPTH.SOL* BTL RIGHT EYE SCH ×2 (08:44→20:15)
[2017-11-19] MEDS: Polyethylene Glycol 3350* 17 GM PACKET PO SCH ×3 (08:44→20:23)
[2017-11-19] MEDS ORDERED: Furosemide TAB* 40 MG PO SCH (09:10)
--- NOTE | 2017-11-19 09:18 | PN ---
Subjective Date of Service: 11/19/17 Interval History: Less SOB this AM c/w last night. No new c/o. Objective Active Medications: Acetaminophen (Tylenol Tab*) 650 mg PO Q4H PRN PRN Reason: FEVER/PAIN Atenolol (Tenormin Tab*) 50 mg PO DAILY [facility] Last Admin: 11/19/17 08:43 Dose: 50 mg Atorvastatin Calcium (Lipitor*) 10 mg PO DAILY [facility] Last Admin: 11/19/17 08:43 Dose: 10 mg Benzonatate (Tessalon Cap*) 200 mg PO BEDTIME [facility] Last Admin: 11/18/17 20:09 Dose: 200 mg Citalopram Hydrobromide (Celexa Tab*) 10 mg PO DAILY [facility] PRN Reason: Protocol Last Admin: 11/19/17 08:43 Dose: 10 mg Diltiazem HCl (Cardizem Cd Cap*) 180 mg PO DAILY [facility] Last Admin: 11/19/17 08:43 Dose: 180 mg Folic Acid (Folvite Tab*) 1 mg PO DAILY [facility] Last Admin: 11/19/17 08:43 Dose: 1 mg Furosemide (Lasix Tab*) 40 mg PO DAILY [facility] Ceftriaxone Sodium 1 gm/ (Sodium Chloride) 50 mls @ 200 mls/hr IVPB Q24H [facility] Last Admin: 11/18/17 12:30 Dose: 200 mls/hr Doxycycline Hyclate 100 mg/ (Sodium Chloride) 250 mls @ 250 mls/hr IVPB Q12H [facility] Last Admin: 11/19/17 08:43 Dose: 250 mls/hr Levalbuterol HCl (Levalbuterol Hcl) 1.25 mg INH Q4H PRN PRN Reason: DYSPNEA Levothyroxine Sodium (Synthroid Tab*) 50 mcg PO 0600 [facility] Last Admin: 11/19/17 06:07 Dose: 50 mcg Mometasone Furoate/Formoterol Fumar (Dulera 200/5 Mdi*) 2 puff INH BID [facility] Last Admin: 11/18/17 20:58 Dose: Not Given Morphine Sulfate (Morphine Vial*) 2 mg IV Q2H PRN PRN Reason: air hunger Last Admin: 11/19/17 02:40 Dose: 2 mg Multivitamins/Minerals (Theragran/Minerals Tab*) 1 tab PO DAILY [facility] Last Admin: 11/19/17 08:43 Dose: 1 tab Pharmacy Profile Note (Coumadin Daily Reminder*) 1 note FOLLOW UP 1700 [facility] Last Admin: 11/18/17 17:16 Dose: 1 note Polyethylene Glycol/Electrolytes (Miralax*) 17 gm PO DAILY PRN PRN Reason: CONSTIPATION Polyethylene Glycol/Electrolytes (Miralax*) 17 gm PO BID [facility] Last Admin: 11/19/17 08:44 Dose: 17 gm Potassium Chloride (Klor Con Er Tab*) 20 meq PO DAILY [facility] Last Admin: 11/19/17 08:43 Dose: 20 meq Timolol Maleate (Timoptic 0.5% Opth*) 1 drop RIGHT EYE BID [facility] Last Admin: 11/19/17 08:44 Dose: 1 drop Tiotropium [place] (Spiriva Cap.Inh*) 1 cap INH DAILY [facility] Last Admin: 11/18/17 08:30 Dose: 1 cap Warfarin Sodium (Coumadin Tab(*)) 3 mg PO DAILY@1700 [facility] PRN Reason: Protocol Last Admin: 11/18/17 17:15 Dose: 3 mg Vital Signs - 8 hr 11/19/17 11/19/17 11/19/17 01:57 02:00 02:03 Temperature Pulse Rate 108 111 104 Respiratory 29 28 Rate Blood Pressure 161/123 (mmHg) O2 Sat by Pulse 89 92 92 Oximetry 11/19/17 11/19/17 11/19/17 02:04 02:10 02:13 Temperature 97.3 F Pulse Rate 110 97 101 Respiratory 28 28 28 Rate Blood Pressure 158/109 148/106 148/106 (mmHg) O2 Sat by Pulse 92 94 92 Oximetry 11/19/17 11/19/17 11/19/17 02:30 02:40 03:00 Temperature Pulse Rate 92 83 Respiratory 29 28 19 Rate Blood Pressure 151/91 (mmHg) O2 Sat by Pulse 95 94 Oximetry 11/19/17 11/19/17 11/19/17 03:01 03:02 03:31 Temperature Pulse Rate 73 83 83 Respiratory 17 18 26 Rate Blood Pressure 113/71 151/87 (mmHg) O2 Sat by Pulse 95 95 79 Oximetry 11/19/17 11/19/17 11/19/17 03:50 04:00 04:05 Temperature Pulse Rate 86 91 Respiratory 21 17 21 Rate Blood Pressure 146/91 (mmHg) O2 Sat by Pulse 96 98 Oximetry 05/27/18 05/27/18 05/27/18 04:30 04:33 05:00 Temperature 98.0 F Pulse Rate 94 80 Respiratory 20 17 Rate Blood Pressure 148/99 109/85 (mmHg) O2 Sat by Pulse 96 99 Oximetry 11/19/17 11/19/17 11/19/17 05:31 06:00 07:35 Temperature 97.9 F Pulse Rate 81 80 Respiratory 16 16 Rate Blood Pressure 132/85 145/91 (mmHg) O2 Sat by Pulse 98 100 Oximetry Oxygen Devices in Use Now: Nasal Cannula Appearance: Alert, sitting up in ICU bed. Neutral affect. Looks comfortable. Eyes: No Scleral Icterus Neck: NL Appearance and Movements; NL JVP, No Thyroid Enlargement, Masses Respiratory: Symmetrical Chest Expansion and Respiratory Effort, Clear to Auscultation, Clear to Percussion Cardiovascular: NL Sounds; No Murmurs; No JVD, No Edema, - - irreg Extremities: No Edema, No Clubbing, Cyanosis, - Skin: No Nodules or Sclerosis, - - L arm around elbow is diffusely red, sl swollen, not at all warm. Neurological: Alert and Oriented x 3, NL Sensation - diminished hearing Result Diagrams: 11/17/17 05:31 11/17/17 05:31 Microbiology and Other Data: Microbiology 11/15/17 22:40 Nasal Screen MRSA (PCR)([facility]) - Final Nasal Mrsa Not Detected 11/15/17 23:23 Legionella Urinary Antigen - Final Urine Negative Legionella Antigen Streptococcus pneumoniae Ag Screen - Final Negative S. pneumo Antigen Assess/Plan/Problems-Billing Assessment: 87 F h/o afib, HTN, sCHF, COPD, blindness p/w abdominal pain found with multifocal PNA with stay complicated by hypoxic respiratory failure requiring ICU transfer and BiPAP overnight - Patient Problems (1) Pneumonia Current Visit: Yes Status: Acute Code(s): J18.9 - PNEUMONIA, UNSPECIFIED ORGANISM SNOMED Code(s): 011493925 Comment: bilater multifocal No WBC and procalcitonin nominal, +fever on presentation continue CTX and doxycycline No BIPAP for over 48 hrs as of 11/19. (2) Afib Current Visit: Yes Status: Acute Code(s): I48.91 - UNSPECIFIED ATRIAL FIBRILLATION SNOMED Code(s): 52031773 Comment: Rate is controlled. Continue Diltiazem, Atenolol Warfarin reduced to 3 mg daily start 11/17 due to concurrent antibiotics, ? adequate diet. INR 11/19 2.43. Repeat 11/20. (3) CHF (congestive heart failure) Current Visit: Yes Status: Acute Code(s): I50.9 - HEART FAILURE, UNSPECIFIED SNOMED Code(s): 53546619 Comment: received lasix overnight -11/19 again. Increase lasix to 40 mg PO daily 11/19. BMP 11/20. (4) Weakness Current Visit: Yes Status: Acute Code(s): R53.1 - WEAKNESS SNOMED Code(s) : 60344820 Comment: PT/OT eval will require new orders. (5) Rash Current Visit: Yes Status: Acute Code(s): R21 - RASH AND OTHER NONSPECIFIC SKIN ERUPTION SNOMED Code(s): 770249186 Comment: L arm rash suspect chemical irritation from IV. Patient already on 2 antibiotics. Status and Disposition: inpatient
[2017-11-19] MEDS: Mometasone/Formoter 200/5 MDI INH SCH ×3 (09:27→21:10)
[2017-11-19] MEDS: Tiotropium CAP.INH* CAP.INH/18 MCG (USE ORDER SET !) INH SCH (09:27)
[2017-11-19] MEDS: Lisinopril TAB* 5 MG PO SCH (11:41)
[2017-11-19] MEDS: Magnesium CITRATE* 300 ML BTL PO SCH ×2 (11:41→20:14)
[2017-11-19] MEDS: cefTRIAXone(*) 1 GM in NS 0.9% 50 ML* 50 ML IVPB SCH (11:42)
[2017-11-19] MEDS ORDERED: Furosemide TAB* 20 MG PO ONE (11:55)
[2017-11-19] MEDS ORDERED: Warfarin TAB(*) 6 MG PO SCH (17:00)
[2017-11-19] MEDS: Warfarin TAB(*) 3 MG PO SCH (18:08)
[2017-11-19] MEDS: Benzonatate CAP* 100 MG PO SCH ×2 (20:14→20:23)
[2017-11-20] MEDS: Levothyroxine TAB* 50 MCG TAB PO SCH (05:49)
[2017-11-20 06:22] LABS: ABS Basophils 0 10^3/ul (0-0.2); ABS Eosinophils 0.1 10^3/ul (0-0.6); ABS Lymphocytes 0.8 10^3/ul (1.0-4.8); ABS Monocytes 0.6 10^3/ul (0-0.8); ABS Neutrophils 4.5 10^3/ul (1.5-7.7); ABS Nucleated RBC 0 10^3/ul; Eosinophil % 1.5 % (0-6); Hematocrit 33 % (35-47); Hemoglobin 10.5 g/dl (12.0-16.0); Lymphocyte % 13.1 % (25-47); Mean Corpuscular HGB Conc 32 g/dl (31-36); Mean Corpuscular Hemoglobin 28 pg (27-31); Mean Corpuscular Volume 86 fL (80-97); Mean Platelet Volume 7.3 um3 (7.4-10.4); Nucleated Red Blood Cells % 0.2; Platelet Count 189 10^3/ul (150-450); Red Blood Count 3.77 10^6/ul (4.0-5.4); Red Cell Distribution Width 19 % (10.5-15)
[2017-11-20 06:39] LABS: INR 2.47 (0.77-1.02)
[2017-11-20 06:40] LABS: EGFR Non-African American 106.5 (>60)
[2017-11-20] MEDS: Tiotropium CAP.INH* CAP.INH/18 MCG (USE ORDER SET !) INH SCH (08:44)
[2017-11-20] MEDS: Mometasone/Formoter 200/5 MDI INH SCH ×2 (08:45→19:31)
[2017-11-20] MEDS: Polyethylene Glycol 3350* 17 GM PACKET PO SCH ×3 (09:06→20:15)
[2017-11-20] MEDS: Multivitamins/Minerals TAB PO SCH (09:07)
[2017-11-20] MEDS: Lisinopril TAB* 5 MG PO SCH (09:07)
[2017-11-20] MEDS: Diltiazem CD CAP* 180 MG PO SCH (09:07)
[2017-11-20] MEDS: Atorvastatin* 10 MG TAB PO SCH (09:08)
[2017-11-20] MEDS: Atenolol TAB* 50 MG PO SCH (09:08)
[2017-11-20] MEDS: Citalopram TAB* 10 MG PO SCH (09:08)
[2017-11-20] MEDS: Folic Acid TAB* 1 MG PO SCH (09:08)
[2017-11-20] MEDS: Potassium Chlor TAB* 20 MEQ TAB.ER PO SCH (09:08)
[2017-11-20] MEDS: Magnesium CITRATE* 300 ML BTL PO SCH ×3 (09:13→20:48)
[2017-11-20] MEDS: Timolol 0.5% OPTH.SOL* BTL RIGHT EYE SCH ×2 (09:14→20:30)
[2017-11-20] MEDS: DOXYcycline IV* 100 MG in NS 0.9% 250 ML* 250 ML IVPB SCH ×2 (09:56→20:30)
[2017-11-20] MEDS: cefTRIAXone(*) 1 GM in NS 0.9% 50 ML* 50 ML IVPB SCH (11:51)
[2017-11-20] MEDS ORDERED: Furosemide IV* 10 MG/ML VIAL (40 MG) IV ONE (11:53)
--- NOTE | 2017-11-20 12:01 | PN ---
Subjective Date of Service: 11/20/17 Interval History: No subj change. Objective Active Medications: Acetaminophen (Tylenol Tab*) 650 mg PO Q4H PRN PRN Reason: FEVER/PAIN Atenolol (Tenormin Tab*) 50 mg PO DAILY [facility] Last Admin: 11/20/17 09:08 Dose: 50 mg Atorvastatin Calcium (Lipitor*) 10 mg PO DAILY [facility] Last Admin: 11/20/17 09:08 Dose: 10 mg Benzonatate (Tessalon Cap*) 200 mg PO BEDTIME [facility] Last Admin: 11/19/17 20:23 Dose: Not Given Citalopram Hydrobromide (Celexa Tab*) 10 mg PO DAILY [facility] PRN Reason: Protocol Last Admin: 11/20/17 09:08 Dose: 10 mg Diltiazem HCl (Cardizem Cd Cap*) 180 mg PO DAILY [facility] Last Admin: 11/20/17 09:07 Dose: 180 mg Folic Acid (Folvite Tab*) 1 mg PO DAILY [facility] Last Admin: 11/20/17 09:08 Dose: 1 mg Furosemide (Lasix Iv*) 40 mg IV ONCE ONE Stop: 11/20/17 11:54 Ceftriaxone Sodium 1 gm/ (Sodium Chloride) 50 mls @ 200 mls/hr IVPB Q24H [facility] Last Admin: 11/20/17 11:51 Dose: 200 mls/hr Doxycycline Hyclate 100 mg/ (Sodium Chloride) 250 mls @ 250 mls/hr IVPB Q12H [facility] Last Admin: 11/20/17 09:56 Dose: 250 mls/hr Levalbuterol HCl (Levalbuterol Hcl) 1.25 mg INH Q4H PRN PRN Reason: DYSPNEA Levothyroxine Sodium (Synthroid Tab*) 50 mcg PO 0600 [facility] Last Admin: 11/20/17 05:49 Dose: 50 mcg Lisinopril (Prinivil Tab*) 2.5 mg PO DAILY [facility] Last Admin: 11/20/17 09:07 Dose: 2.5 mg Magnesium Citrate (Citrate Of Magnesia*) 30 ml PO BID [facility] Last Admin: 11/20/17 10:01 Dose: Not Given Mometasone Furoate/Formoterol Fumar (Dulera 200/5 Mdi*) 2 puff INH BID [facility] Last Admin: 11/20/17 08:45 Dose: 2 puff Morphine Sulfate (Morphine Vial*) 2 mg IV Q2H PRN PRN Reason: air hunger Last Admin: 11/19/17 22:28 Dose: 2 mg Multivitamins/Minerals (Theragran/Minerals Tab*) 1 tab PO DAILY [facility] Last Admin: 11/20/17 09:07 Dose: 1 tab Pharmacy Profile Note (Coumadin Daily Reminder*) 1 note FOLLOW UP 1700 [facility] Last Admin: 11/19/17 18:08 Dose: 1 note Polyethylene Glycol/Electrolytes (Miralax*) 17 gm PO DAILY PRN PRN Reason: CONSTIPATION Polyethylene Glycol/Electrolytes (Miralax*) 17 gm PO BID [facility] Last Admin: 11/20/17 10:02 Dose: Not Given Potassium Chloride (Klor Con Er Tab*) 20 meq PO DAILY [facility] Last Admin: 11/20/17 09:08 Dose: 20 meq Timolol Maleate (Timoptic 0.5% Opth*) 1 drop RIGHT EYE BID [facility] Last Admin: 11/20/17 09:14 Dose: 1 drop Tiotropium [place] (Spiriva Cap.Inh*) 1 cap INH DAILY [facility] Last Admin: 11/20/17 08:44 Dose: 1 cap Torsemide (Demadex*) 40 mg PO DAILY [facility] Warfarin Sodium (Coumadin Tab(*)) 3 mg PO DAILY@1700 [facility] PRN Reason: Protocol Last Admin: 11/19/17 18:08 Dose: 3 mg Vital Signs - 8 hr 11/20/17 11/20/17 11/20/17 03:58 04:00 05:00 Temperature 97.5 F Pulse Rate 80 78 Respiratory 15 17 Rate Blood Pressure 136/83 146/73 (mmHg) O2 Sat by Pulse 98 98 Oximetry 11/20/17 11/20/17 11/20/17 05:49 06:00 07:00 Temperature Pulse Rate 75 83 Respiratory 15 19 16 Rate Blood Pressure 133/84 142/83 (mmHg) O2 Sat by Pulse 94 97 Oximetry 11/20/17 11/20/17 11/20/17 08:00 09:00 10:00 Temperature 98.8 F Pulse Rate 73 76 76 Respiratory 20 14 21 Rate Blood Pressure 154/100 134/92 111/63 (mmHg) O2 Sat by Pulse 97 96 95 Oximetry 11/20/17 11:00 Temperature Pulse Rate 73 Respiratory 26 Rate Blood Pressure 133/76 (mmHg) O2 Sat by Pulse 94 Oximetry Oxygen Devices in Use Now: High Flow Nasal Cannula Appearance: Alert, supine on ICU bed. In fair spirits. Looks comfortable but weak. Eyes: No Scleral Icterus Respiratory: Symmetrical Chest Expansion and Respiratory Effort, Clear to Auscultation, Clear to Percussion, - Cardiovascular: NL Sounds; No Murmurs; No JVD, RRR, No Edema, - Extremities: No Edema, No Clubbing, Cyanosis, - Skin: No Nodules or Sclerosis, - - L elbow area mildly red, 50% less intense red than yesterday. Neurological: Alert and Oriented x 3, NL Sensation - Poor hearing. Poor vision. Result Diagrams: 11/20/17 05:59 11/20/17 05:59 Microbiology and Other Data: Microbiology 11/15/17 22:40 Nasal Screen MRSA (PCR)([place]) - Final Nasal Mrsa Not Detected 11/15/17 23:23 Legionella Urinary Antigen - Final Urine Negative Legionella Antigen Streptococcus pneumoniae Ag Screen - Final Negative S. pneumo Antigen Assess/Plan/Problems-Billing Assessment: 87 F h/o afib, HTN, sCHF, COPD, blindness p/w abdominal pain found with multifocal PNA with stay complicated by hypoxic respiratory failure requiring ICU transfer and BiPAP overnight - Patient Problems (1) Pneumonia Current Visit: Yes Status: Acute Code(s): J18.9 - PNEUMONIA, UNSPECIFIED ORGANISM SNOMED Code(s): 668038674 Comment: bilater multifocal No WBC and procalcitonin nominal, +fever on presentation continue CTX and doxycycline. No BIPAP for over 3 days as of 11/20. (2) Afib Current Visit: Yes Status: Acute Code(s): I48.91 - UNSPECIFIED ATRIAL FIBRILLATION SNOMED Code(s): 71687079 Comment: Rate is controlled. Continue Diltiazem, Atenolol Warfarin reduced to 3 mg daily start 11/17 due to concurrent antibiotics, ? adequate diet. INR 11/19 2.43. Repeat 11/20. (3) CHF (congestive heart failure) Current Visit: Yes Status: Acute Code(s): I50.9 - HEART FAILURE, UNSPECIFIED SNOMED Code(s): 19911924 Comment: received lasix overnight -11/19 again. Increase lasix to 40 mg PO daily 11/19. Extra 40 mg IV furosemide on 11/20 as BUN still only 15, change to daily po torsemdie 40 mg. BMP 11/21. Mild decrease in LVEF 11/2016, repeat echo 11/21. (4) Weakness Current Visit: Yes Status: Acute Code(s): R53.1 - WEAKNESS SNOMED Code(s) : 71797458 Comment: PT/OT eval will require new orders. (5) Rash Current Visit: Yes Status: Acute Code(s): R21 - RASH AND OTHER NONSPECIFIC SKIN ERUPTION SNOMED Code(s): 816063434 Comment: L arm rash suspect chemical irritation from IV. Looks better 11/20. Patient already on 2 antibiotics. Status and Disposition: inpatient
[2017-11-20] MEDS: Warfarin TAB(*) 3 MG PO SCH (18:22)
[2017-11-20] MEDS: Benzonatate CAP* 100 MG PO SCH (20:15)
[2017-11-20] MEDS: Morphine VIAL* 4 MG/ML VIAL (1 ml vial) IV PRN (21:47)
[2017-11-21] MEDS: Levothyroxine TAB* 50 MCG TAB PO SCH (06:13)
[2017-11-21 07:05] LABS: EGFR Non-African American 87.6 (>60)
[2017-11-21] MEDS: Tiotropium CAP.INH* CAP.INH/18 MCG (USE ORDER SET !) INH SCH (07:22)
[2017-11-21] MEDS: Mometasone/Formoter 200/5 MDI INH SCH ×2 (07:22→19:31)
[2017-11-21] MEDS: Diltiazem CD CAP* 180 MG PO SCH (08:22)
[2017-11-21] MEDS: Atenolol TAB* 50 MG PO SCH (08:22)
[2017-11-21] MEDS: Lisinopril TAB* 5 MG PO SCH (08:22)
[2017-11-21] MEDS: DOXYcycline IV* 100 MG in NS 0.9% 250 ML* 250 ML IVPB SCH ×2 (08:22→19:43)
[2017-11-21] MEDS: Folic Acid TAB* 1 MG PO SCH (08:22)
[2017-11-21] MEDS: Multivitamins/Minerals TAB PO SCH (08:23)
[2017-11-21] MEDS: Potassium Chlor TAB* 20 MEQ TAB.ER PO SCH (08:23)
[2017-11-21] MEDS: Atorvastatin* 10 MG TAB PO SCH (08:23)
[2017-11-21] MEDS: Torsemide TAB* 20 MG PO SCH (08:23)
[2017-11-21] MEDS: Citalopram TAB* 10 MG PO SCH (08:23)
--- NOTE | 2017-11-21 08:33 | PN ---
Subjective Date of Service: 11/21/17 Interval History: Pt is feeling ok. She denies any SOB while on the O2. However, she has not been out of bed. She denies any sputum production. She denies any issues with her bowel movements. Objective Active Medications: Acetaminophen (Tylenol Tab*) 650 mg PO Q4H PRN PRN Reason: FEVER/PAIN Atenolol (Tenormin Tab*) 50 mg PO DAILY [facility] Last Admin: 11/21/17 08:22 Dose: 50 mg Atorvastatin Calcium (Lipitor*) 10 mg PO DAILY [facility] Last Admin: 11/21/17 08:23 Dose: 10 mg Benzonatate (Tessalon Cap*) 200 mg PO BEDTIME [facility] Last Admin: 11/20/17 20:15 Dose: Not Given Citalopram Hydrobromide (Celexa Tab*) 10 mg PO DAILY [facility] PRN Reason: Protocol Last Admin: 11/21/17 08:23 Dose: 10 mg Diltiazem HCl (Cardizem Cd Cap*) 180 mg PO DAILY [facility] Last Admin: 11/21/17 08:22 Dose: 180 mg Folic Acid (Folvite Tab*) 1 mg PO DAILY [facility] Last Admin: 11/21/17 08:22 Dose: 1 mg Ceftriaxone Sodium 1 gm/ (Sodium Chloride) 50 mls @ 200 mls/hr IVPB Q24H [facility] Last Admin: 11/20/17 11:51 Dose: 200 mls/hr Doxycycline Hyclate 100 mg/ (Sodium Chloride) 250 mls @ 250 mls/hr IVPB Q12H [facility] Last Admin: 11/21/17 08:22 Dose: 250 mls/hr Levalbuterol HCl (Levalbuterol Hcl) 1.25 mg INH Q4H PRN PRN Reason: DYSPNEA Levothyroxine Sodium (Synthroid Tab*) 50 mcg PO 0600 [facility] Last Admin: 11/21/17 06:13 Dose: 50 mcg Lisinopril (Prinivil Tab*) 2.5 mg PO DAILY [facility] Last Admin: 11/21/17 08:22 Dose: 2.5 mg Magnesium Citrate (Citrate Of Magnesia*) 30 ml PO BID [facility] Last Admin: 11/20/17 20:48 Dose: 30 ml Mometasone Furoate/Formoterol Fumar (Dulera 200/5 Mdi*) 2 puff INH BID [facility] Last Admin: 11/21/17 07:22 Dose: 2 puff Morphine Sulfate (Morphine Vial*) 2 mg IV Q2H PRN PRN Reason: air hunger Last Admin: 11/20/17 21:47 Dose: 2 mg Multivitamins/Minerals (Theragran/Minerals Tab*) 1 tab PO DAILY [facility] Last Admin: 11/21/17 08:23 Dose: 1 tab Pharmacy Profile Note (Coumadin Daily Reminder*) 1 note FOLLOW UP 1700 [facility] Last Admin: 11/20/17 18:23 Dose: Not Given Polyethylene Glycol/Electrolytes (Miralax*) 17 gm PO DAILY PRN PRN Reason: CONSTIPATION Polyethylene Glycol/Electrolytes (Miralax*) 17 gm PO BID [facility] Last Admin: 11/20/17 20:15 Dose: Not Given Potassium Chloride (Klor Con Er Tab*) 20 meq PO DAILY [facility] Last Admin: 11/21/17 08:23 Dose: 20 meq Timolol Maleate (Timoptic 0.5% Opth*) 1 drop RIGHT EYE BID [facility] Last Admin: 11/20/17 20:30 Dose: 1 drop Tiotropium [place] (Spiriva Cap.Inh*) 1 cap INH DAILY [facility] Last Admin: 11/21/17 07:22 Dose: 1 cap Torsemide (Demadex*) 40 mg PO DAILY [facility] Last Admin: 11/21/17 08:23 Dose: 40 mg Warfarin Sodium (Coumadin Tab(*)) 3 mg PO DAILY@1700 [facility] PRN Reason: Protocol Last Admin: 11/20/17 18:22 Dose: 3 mg Vital Signs - 8 hr 11/21/17 11/21/17 11/21/17 01:00 02:00 03:00 Temperature Pulse Rate 68 67 69 Respiratory 19 21 11 Rate Blood Pressure 110/68 114/65 102/61 (mmHg) O2 Sat by Pulse 97 98 97 Oximetry 11/21/17 11/21/17 11/21/17 04:00 05:00 05:41 Temperature 97.2 F Pulse Rate 68 65 71 Respiratory 15 22 22 Rate Blood Pressure 114/58 113/64 134/79 (mmHg) O2 Sat by Pulse 97 97 94 Oximetry 11/21/17 11/21/17 11/21/17 06:00 06:44 07:25 Temperature Pulse Rate 76 73 Respiratory 27 17 19 Rate Blood Pressure 122/78 (mmHg) O2 Sat by Pulse 96 97 Oximetry 11/21/17 07:39 Temperature 98.5 F Pulse Rate Respiratory Rate Blood Pressure (mmHg) O2 Sat by Pulse Oximetry Oxygen Devices in Use Now: Nasal Cannula - 8L Appearance: Elderly female sitting up in bed, appears comfortable, NAD Eyes: No Scleral Icterus Ears/Nose/Mouth/Throat: Mucous Membranes Moist Respiratory: Symmetrical Chest Expansion and Respiratory Effort, Clear to Auscultation - markedly diminished breath sounds at the bases and 1/[address] up. Cardiovascular: NL Sounds; No Murmurs; No JVD, RRR, No Edema Abdominal: NL Sounds; No Tenderness; No Distention Extremities: No Clubbing, Cyanosis Skin: No Nodules or Sclerosis Neurological: Alert and Oriented x 3 Result Diagrams: 11/20/17 05:59 11/21/17 06:38 Microbiology and Other Data: Microbiology 11/15/17 22:40 Nasal Screen MRSA (PCR)([place]) - Final Nasal Mrsa Not Detected 11/15/17 23:23 Legionella Urinary Antigen - Final Urine Negative Legionella Antigen Streptococcus pneumoniae Ag Screen - Final Negative S. pneumo Antigen Assess/Plan/Problems-Billing Ms Holloway is an 87 F with a h/o afib, HTN, sCHF and COPD who p/w abdominal pain found with multifocal PNA with stay complicated by hypoxic respiratory failure secondary to acute probable systolic CHF. - Patient Problems (1) Acute respiratory failure with hypoxia Current Visit: Yes Status: Acute Code(s): J96.01 - ACUTE RESPIRATORY FAILURE WITH HYPOXIA SNOMED Code(s): 00021797 Comment: Secondary to acute systolic CHF and possible multifocal pneumonia. O2 requirements are stable- she appears quite comfortable. Will try to wean O2 some today. Utilize flutter valve. Aggressive pulmonary toilet. (2) Systolic CHF, acute on chronic Current Visit: Yes Status: Acute Code(s): I50.23 - ACUTE ON CHRONIC SYSTOLIC (CONGESTIVE) HEART FAILURE SNOMED Code(s): 736589859 Comment: The patient has required transfer to the ICU twice this admission for presumed acute systolic CHF. She has required BiPAP and recovered well each time. She is still requiring 8L O2. Continue IV diuresis. Echo results pending. (3) Pneumonia Current Visit: Yes Status: Acute Code(s): J18.9 - PNEUMONIA, UNSPECIFIED ORGANISM SNOMED Code(s): 636643819 Comment: [place] to be multifocal with associated sepsis on admission. Today is D#7 of Abx therapy. (4) Afib Current Visit: Yes Status: Acute Code(s): I48.91 - UNSPECIFIED ATRIAL FIBRILLATION SNOMED Code(s): 74683612 Comment: Sounded regular today. Continue diltiazem and atenolol. INR remains therapeutic. Recheck INR tomorrow. (5) HTN (hypertension) Current Visit: Yes Status: Acute Code(s): I10 - ESSENTIAL (PRIMARY) HYPERTENSION SNOMED Code(s): 13994120 Comment: BP is under excellent control. Continue current regimen. (6) Hypothyroidism Current Visit: Yes Status: Acute Code(s): E03.9 - HYPOTHYROIDISM, UNSPECIFIED SNOMED Code(s): 86282664 Comment: Continue synthroid. (7) DVT prophylaxis Current Visit: Yes Status: Acute Code(s): HWJ5867 - SNOMED Code(s): 473012009 Comment: Therapeutic INR (8) DNR (do not resuscitate) Current Visit: Yes Status: Acute Status and Disposition: inpatient
[2017-11-21] MEDS: Magnesium CITRATE* 300 ML BTL PO SCH ×2 (08:38→21:27)
[2017-11-21] MEDS: Timolol 0.5% OPTH.SOL* BTL RIGHT EYE SCH ×2 (08:39→21:27)
[2017-11-21] MEDS: Polyethylene Glycol 3350* 17 GM PACKET PO SCH ×2 (08:39→21:53)
--- NOTE | 2017-11-21 11:10 | ECHO ---
Patient: SHERIF BALLESTEROS [facility] Rec#: [id number] : 1930 Date: 11/21/2017 Age: 87y Height: 160.02 cm / 63.0 in Weight: 53.52 kg / 118.0 lbs Sex: F BSA: 1.55 Room#: [facility] Admit Date#: 11/15/2017 Type: Inpatient Referring: Marek Pelletier MD Reading: Golden Lee MD Crm Functional Analyst: Gladys Walls BRADEN CC: SADIQ MCCLENDON Transthoracic Echocardiogram Indication: CHF BP: 122/78 HR: 81 Rhythm: Paced Findings History: A-fib,CVA,HTN,hypothyroid,GERD,LBBB,COPD,CHF,pulmonary nodules,s/p AICD implant,former smoker. Technical Comments: The study quality is good. Completed at 0825. Left Ventricle: The left ventricular chamber size is normal. Septal wall hypertrophy is observed. Moderate global hypokinesis of the left ventricle is observed. There is moderately decreased left ventricular systolic function. The estimated ejection fraction is 35-40%. There is abnormal ventricular septal wall motion consistent with right ventricular pacemaker. There is no consistent Doppler evidence of clinically significant diastolic dysfunction. Left Atrium: The left atrium is mildly dilated. Right Ventricle: The right ventricular cavity size is normal. The right ventricular global systolic function is mildly reduced. The septum has abnormal paradoxical motion consistent with RV pacemaker. A pacemaker wire is visualized in the right ventricle. Right Atrium: The right atrium is mild to moderately dilated. Aortic Valve: The aortic valve is trileaflet. The aortic valve leaflets are mildly thickened. There is evidence of aortic sclerosis without stenosis. There is a trace of aortic regurgitation. There is no evidence of aortic stenosis. Mitral Valve: The mitral valve leaflets are mildly thickened. There is moderate mitral regurgitation. There is no evidence of mitral stenosis. Tricuspid Valve: The tricuspid valve leaflets are normal. There is moderate to severe tricuspid regurgitation. The tricuspid regurgitant jet is centrally directed. There is evidence of mild to moderate pulmonary hypertension. There is no tricuspid stenosis. Pulmonic Valve: The pulmonic valve appears normal. There is a trace pulmonic regurgitation. There is no pulmonic stenosis. Pericardium: The pericardium appears normal. A left pleural effusion is present. There is a moderate pleural effusion. Aorta: There is no dilatation of the ascending aorta. There is no dilatation of the aortic arch. There is no dilation of the aortic root. Pulmonary Artery: The main pulmonary artery appears normal. Venous: The inferior vena cava appears normal in size. There is a greater than 50% respiratory change in the inferior vena cava dimension. Conclusions Moderate global hypokinesis of the left ventricle is observed. The estimated ejection fraction is 35-40%. There is abnormal ventricular septal wall motion consistent with right ventricular pacemaker. A pacemaker wire is visualized in the right ventricle. There is evidence of aortic sclerosis without stenosis. There is moderate mitral regurgitation. There is moderate to severe tricuspid regurgitation. There is evidence of mild to moderate pulmonary hypertension. The pericardium appears normal. A left pleural effusion is present. There is a moderate pleural effusion. Compared to study of 11/2016, the LV function is slightly lower The Left pleural effusion is new Measurements Name Value Normal Range RVIDd (AP) 2D 3.1 cm (0.9 - 2.6) RVDdMajor (2D) 3.6 cm (2.2 - 4.4) RAd ISD 4CH 5.8 cm (3.4 - 4.9) RA (A4C)W 4.1 cm (2.9 - 4.6) IVSd (2D) 1.1 cm (0.6 - 1) LVPWd (2D) 0.8 cm (0.6 - 1) LVIDd (2D) 4.2 cm (3.6 - 5.4) LVIDs (2D) 3.6 cm - LV FS (2D) 16 % (25 - 45) Aortic Annulus 1.5 cm (1.4 - 2.6) Ao root diameter (2D) 3 cm (2.1 - 3.5) Ascending Ao 3 cm (2.1 - 3.4) Aortic arch 1.9 cm (1.8 - 3.4) Descending Ao 0.4 cm - LA dimension (AP) 2D 3.8 cm (2.3 - 3.8) LAd ISD 4CH 6.9 cm (2.9 - 5.3) LA ISD 4CH W 4 cm (2.5 - 4.5) Name Value Normal Range LA ESV SP 4CH (A/L) 52 ml - LA ESV SP 2CH (A/L) 95 ml - LA ESV BP (A/L) 74 ml - LA ESV BP (A/L) index 47.6 ml/m2 - LA ESV SP 4CH (MOD) 50 ml - LA ESV SP 2CH (MOD) 90 ml - Name Value Normal Range MV E-wave Vmax 1.1 m/sec - MV deceleration time 167 msec - LV septal e' Vmax 0.11 m/sec - LV lateral e' Vmax 0.11 m/sec - LV E:e' septal ratio 10 ratio - LV E:e' lateral ratio 10 ratio - Name Value Normal Range AV Vmax 1.6 m/sec - AV VTI 31.05 cm - AV peak gradient 10.91 mmHg - AV mean gradient 5.78 mmHg - LVOT diameter 1.7 cm - LVOT Vmax 0.7 m/sec - LVOT VTI 13 cm - LVOT peak gradient 2.1 mmHg - LVOT mean gradient 1.05 mmHg - SV LVOT 29.33 ml - Name Value Normal Range MR Vmax 5.13 m/sec - MR VTI 188.8 cm - Name Value Normal Range TR Vmax 3.1 m/sec - TR peak gradient 39 mmHg - RAP 3 mmHg - RVSP 42 mmHg - IVC diameter 1.4 cm - Name Value Normal Range PV Vmax 0.7 m/sec - PV peak gradient 2.09 mmHg -
[2017-11-21] MEDS: cefTRIAXone(*) 1 GM in NS 0.9% 50 ML* 50 ML IVPB SCH (13:00)
[2017-11-21] MEDS: Warfarin TAB(*) 3 MG PO SCH (17:10)
[2017-11-21] MEDS: Morphine VIAL* 4 MG/ML VIAL (1 ml vial) IV PRN (21:49)
[2017-11-21] MEDS: Benzonatate CAP* 100 MG PO SCH (21:53)
[2017-11-22] MEDS: Levothyroxine TAB* 50 MCG TAB PO SCH (06:40)
[2017-11-22] MEDS: Tiotropium CAP.INH* CAP.INH/18 MCG (USE ORDER SET !) INH SCH (07:25)
[2017-11-22] MEDS: Mometasone/Formoter 200/5 MDI INH SCH ×2 (07:25→20:09)
[2017-11-22 08:25] LABS: Hematocrit 32 % (35-47); Hemoglobin 10.6 g/dl (12.0-16.0); Mean Corpuscular HGB Conc 33 g/dl (31-36); Mean Corpuscular Hemoglobin 28 pg (27-31); Mean Corpuscular Volume 86 fL (80-97); Mean Platelet Volume 7.2 um3 (7.4-10.4); Platelet Count 227 10^3/ul (150-450); Red Blood Count 3.75 10^6/ul (4.0-5.4); Red Cell Distribution Width 19 % (10.5-15); White Blood Count 6.6 10^3/ul (3.5-10.8)
[2017-11-22 08:27] LABS: INR 2.44 (0.77-1.02)
[2017-11-22] MEDS: Atenolol TAB* 50 MG PO SCH (08:59)
[2017-11-22] MEDS: Lisinopril TAB* 5 MG PO SCH (08:59)
[2017-11-22] MEDS: Diltiazem CD CAP* 180 MG PO SCH (09:00)
[2017-11-22] MEDS: Polyethylene Glycol 3350* 17 GM PACKET PO SCH ×2 (09:00→20:16)
[2017-11-22] MEDS: Magnesium CITRATE* 300 ML BTL PO SCH ×2 (09:00→22:13)
[2017-11-22] MEDS: Potassium Chlor TAB* 20 MEQ TAB.ER PO SCH (09:00)
[2017-11-22] MEDS: Folic Acid TAB* 1 MG PO SCH (09:00)
[2017-11-22] MEDS: Citalopram TAB* 10 MG PO SCH (09:00)
[2017-11-22] MEDS: Multivitamins/Minerals TAB PO SCH (09:00)
[2017-11-22] MEDS: Torsemide TAB* 20 MG PO SCH (09:00)
[2017-11-22] MEDS: Atorvastatin* 10 MG TAB PO SCH (09:00)
[2017-11-22] MEDS: Timolol 0.5% OPTH.SOL* BTL RIGHT EYE SCH ×2 (09:07→22:14)
--- NOTE | 2017-11-22 13:37 | PN ---
Subjective Date of Service: 11/22/17 Interval History: HOSPITALIST PROGRESS NOTE Patient seen and examined at bedside. Care reviewed and d/w Wally Danielle RN. She feels better today. Dyspnea is less intense, denies chest pain or palpitations. Family History: Unchanged from Admission Social History: Unchanged from Admission Past Medical History: Unchanged from Admission Objective Active Medications: Acetaminophen (Tylenol Tab*) 650 mg PO Q4H PRN PRN Reason: FEVER/PAIN Atenolol (Tenormin Tab*) 50 mg PO DAILY [facility] Last Admin: 11/22/17 08:59 Dose: 50 mg Atorvastatin Calcium (Lipitor*) 10 mg PO DAILY [facility] Last Admin: 11/22/17 09:00 Dose: 10 mg Benzonatate (Tessalon Cap*) 200 mg PO BEDTIME [facility] Last Admin: 11/21/17 21:53 Dose: Not Given Citalopram Hydrobromide (Celexa Tab*) 10 mg PO DAILY [facility] PRN Reason: Protocol Last Admin: 11/22/17 09:00 Dose: 10 mg Diltiazem HCl (Cardizem Cd Cap*) 180 mg PO DAILY@1500 [facility] Folic Acid (Folvite Tab*) 1 mg PO DAILY [facility] Last Admin: 11/22/17 09:00 Dose: 1 mg Levalbuterol HCl (Levalbuterol Hcl) 1.25 mg INH Q4H PRN PRN Reason: DYSPNEA Levothyroxine Sodium (Synthroid Tab*) 50 mcg PO 0600 [facility] Last Admin: 11/22/17 06:40 Dose: 50 mcg Lisinopril (Prinivil Tab*) 2.5 mg PO DAILY@1500 [facility] Magnesium Citrate (Citrate Of Magnesia*) 30 ml PO BID [facility] Last Admin: 11/22/17 09:00 Dose: 30 ml Mometasone Furoate/Formoterol Fumar (Dulera 200/5 Mdi*) 2 puff INH BID [facility] Last Admin: 11/22/17 07:25 Dose: 2 puff Morphine Sulfate (Morphine Vial*) 2 mg IV Q2H PRN PRN Reason: air hunger Last Admin: 11/21/17 21:49 Dose: 2 mg Multivitamins/Minerals (Theragran/Minerals Tab*) 1 tab PO DAILY [facility] Last Admin: 11/22/17 09:00 Dose: 1 tab Pharmacy Profile Note (Coumadin Daily Reminder*) 1 note FOLLOW UP 1700 [facility] Last Admin: 11/21/17 17:10 Dose: Not Given Polyethylene Glycol/Electrolytes (Miralax*) 17 gm PO DAILY PRN PRN Reason: CONSTIPATION Polyethylene Glycol/Electrolytes (Miralax*) 17 gm PO BID [facility] Last Admin: 11/22/17 09:00 Dose: 17 gm Potassium Chloride (Klor Con Er Tab*) 20 meq PO DAILY [facility] Last Admin: 11/22/17 09:00 Dose: 20 meq Timolol Maleate (Timoptic 0.5% Opth*) 1 drop RIGHT EYE BID [facility] Last Admin: 11/22/17 09:07 Dose: 1 drop Tiotropium [place] (Spiriva Cap.Inh*) 1 cap INH DAILY [facility] Last Admin: 11/22/17 07:25 Dose: 1 cap Torsemide (Demadex*) 40 mg PO DAILY [facility] Last Admin: 11/22/17 09:00 Dose: 40 mg Warfarin Sodium (Coumadin Tab(*)) 3 mg PO DAILY@1700 [facility] PRN Reason: Protocol Last Admin: 11/21/17 17:10 Dose: 3 mg Vital Signs - 8 hr 11/22/17 11/22/17 11/22/17 06:00 06:01 07:00 Temperature Pulse Rate 69 65 76 Respiratory 15 22 17 Rate Blood Pressure 131/73 139/68 (mmHg) O2 Sat by Pulse 99 100 96 Oximetry 11/22/17 11/22/17 11/22/17 07:28 08:00 09:00 Temperature 98.1 F Pulse Rate 75 71 81 Respiratory 17 19 19 Rate Blood Pressure 143/77 140/93 (mmHg) O2 Sat by Pulse 95 95 94 Oximetry 11/22/17 11/22/17 11/22/17 10:12 11:00 11:52 Temperature Pulse Rate 63 60 60 Respiratory 24 24 20 Rate Blood Pressure 95/51 (mmHg) O2 Sat by Pulse 95 96 92 Oximetry 11/22/17 11/22/17 11:53 12:00 Temperature Pulse Rate 60 60 Respiratory 18 21 Rate Blood Pressure 87/44 (mmHg) O2 Sat by Pulse 92 93 Oximetry Oxygen Devices in Use Now: Nasal Cannula - 5 liters Appearance: Elderly lady lying in bed in NAD. Eyes: No Scleral Icterus Ears/Nose/Mouth/Throat: Mucous Membranes Moist Neck: Trachea Midline Respiratory: Symmetrical Chest Expansion and Respiratory Effort, - - BS+ bilaterally diminished but no added sounds Cardiovascular: - - Normal S1 and S2, irregularly irregular Abdominal: NL Sounds; No Tenderness; No Distention Neurological: Alert and Oriented x 3, - - Very KNIK, blind Result Diagrams: 11/22/17 08:01 11/22/17 08:01 Assess/Plan/Problems-Billing Assessment: Ms Holloway is an 87 F with a h/o afib, HTN, CHF and COPD who presented to ED with cough found to have multifocal PNA with stay complicated by hypoxic respiratory failure. - Patient Problems (1) Acute respiratory failure with hypoxia Comment: - Secondary to acute systolic CHF and pneumonia. - O2 requirements are improving - she's down to 5 liters NC at this time. (2) Systolic CHF, acute on chronic Comment: - The patient has required transfer to the ICU twice this admission for presumed acute systolic CHF. She has required BiPAP and recovered well each time. - Echo showed EF 35-40% with ventricular septal wall motion abnormalities secondary to pacer. - Weight down to 112 lbs. - Continue ACEI, Torsemide. - Continue (3) Pneumonia Comment: - [place] to be multifocal with associated sepsis on admission. - Legionella and pneumococcal Ag are negative. - Completed 7 days of antibiotics. (4) Afib Comment: - Rate is controlled. - Continue Atenolol, Diltiazem, Warfarin. - INR 2.44. (5) HTN (hypertension) Comment: - BP is controlled, but developed hypotension after morning meds - will change medication times so she doesn't receive all antihypertensives at 9AM. (6) Hypothyroidism Comment: - Continue synthroid. (7) DVT prophylaxis Comment: - Warfarin. (8) DNR (do not resuscitate) Status and Disposition: Inpatient. Will transfer to Telemetry.
[2017-11-22] MEDS ORDERED: Potassium Chlor TAB* 20 MEQ TAB.ER PO ONE (14:00)
[2017-11-22] MEDS: Warfarin TAB(*) 3 MG PO SCH (17:52)
[2017-11-22] MEDS: Benzonatate CAP* 100 MG PO SCH (20:15)
[2017-11-23 05:24] LABS: INR 2.46 (0.77-1.02)
[2017-11-23 05:33] LABS: EGFR Non-African American 89.2 (>60)
[2017-11-23] MEDS: Levothyroxine TAB* 50 MCG TAB PO SCH (05:38)
[2017-11-23] MEDS: Magnesium CITRATE* 300 ML BTL PO SCH (07:24)
[2017-11-23] MEDS: Polyethylene Glycol 3350* 17 GM PACKET PO SCH (07:24)
[2017-11-23] MEDS: Tiotropium CAP.INH* CAP.INH/18 MCG (USE ORDER SET !) INH SCH (07:37)
[2017-11-23] MEDS: Mometasone/Formoter 200/5 MDI INH SCH ×2 (07:38→20:39)
[2017-11-23] MEDS: Atenolol TAB* 50 MG PO SCH (08:51)
[2017-11-23] MEDS: Folic Acid TAB* 1 MG PO SCH (08:51)
[2017-11-23] MEDS: Torsemide TAB* 20 MG PO SCH (08:51)
[2017-11-23] MEDS: Multivitamins/Minerals TAB PO SCH (08:51)
[2017-11-23] MEDS: Citalopram TAB* 10 MG PO SCH (08:51)
[2017-11-23] MEDS: Atorvastatin* 10 MG TAB PO SCH (08:51)
[2017-11-23] MEDS: Timolol 0.5% OPTH.SOL* BTL RIGHT EYE SCH ×2 (08:51→20:12)
[2017-11-23] MEDS: Potassium Chlor TAB* 20 MEQ TAB.ER PO SCH (08:51)
[2017-11-23] MEDS ORDERED: Iohexol 350* (CONTRAST) 500 ML MDV IV ONE (11:39)
--- NOTE | 2017-11-23 12:32 | RAD ---
INDICATION: 87-year-old with pulmonary edema. Short of breath. Evaluate for pulmonary embolus. COMPARISON: Chest x-ray November 19, 2017; CT chest June 17, 2016 TECHNIQUE: Axial source images were obtained from the thoracic inlet to the hemidiaphragms following administration of [address] angiographic technique was utilized. Coronal and sagittal reconstructed images were acquired. CHEST FINDINGS: Neck/thyroid: The visualized neck to include the thyroid appear normal. Chest wall: There are no acute abnormalities of the bony thorax or chest wall. There is no supraclavicular, infraclavicular, or axillary lymphadenopathy. Lungs : There are emphysematous with areas of air trapping. There are multiple bulla. There are apical lung masses, unchanged. There is consolidative change in the right lung base. Cardiomediastinal structures: There is no CT evidence of acute pulmonary embolic disease. The heart is enlarged. There is no pericardial effusion. There is no evidence of aortic aneurysm or dissection. There are advanced atherosclerotic changes. There is no mediastinal or hilar adenopathy. The esophagus appears normal. Pleura : Moderate size bilateral pleural effusions. There is pleural reactive change with areas of pleural calcification in the apices Other: None. IMPRESSION: 1. No CT evidence of acute pulmonary embolic disease. 2. Persistent interstitial and alveolar edema with bilateral pleural effusions. Suggest continued plain radiographic follow-up. 3. Underlying emphysema with multiple bulla and areas of air trapping. Apical lung mass, unchanged
[2017-11-23] MEDS: Diltiazem CD CAP* 180 MG PO SCH (15:28)
[2017-11-23] MEDS: Lisinopril TAB* 5 MG PO SCH (15:29)
[2017-11-23] MEDS: Warfarin TAB(*) 3 MG PO SCH (16:44)
--- NOTE | 2017-11-23 16:44 | PN ---
Subjective Date of Service: 11/23/17 Interval History: HOSPITALIST PROGRESS NOTE Patient seen and examined at bedside. Care reviewed and d/w Alie Kaufman RN. She feels better today. Still requiring 5 liters, but feels less dyspneic. Requests something to help her sleep. Family History: Unchanged from Admission Social History: Unchanged from Admission Past Medical History: Unchanged from Admission Objective Active Medications: Acetaminophen (Tylenol Tab*) 650 mg PO Q4H PRN PRN Reason: FEVER/PAIN Atenolol (Tenormin Tab*) 50 mg PO DAILY [facility]CLUD[facility] Last Admin: 11/23/17 08:51 Dose: 50 mg Atorvastatin Calcium (Lipitor*) 10 mg PO DAILY [facility] Last Admin: 11/23/17 08:51 Dose: 10 mg Benzonatate (Tessalon Cap*) 200 mg PO BEDTIME [facility]CLUD[facility] Last Admin: 11/22/17 20:15 Dose: Not Given Citalopram Hydrobromide (Celexa Tab*) 10 mg PO DAILY [facility]CLUD[facility] PRN Reason: Protocol Last Admin: 11/23/17 08:51 Dose: 10 mg Diltiazem HCl (Cardizem Cd Cap*) 180 mg PO DAILY@1500 [facility] Last Admin: 11/23/17 15:28 Dose: 180 mg Folic Acid (Folvite Tab*) 1 mg PO DAILY [facility] Last Admin: 11/23/17 08:51 Dose: 1 mg Furosemide (Lasix Tab*) 20 mg PO DAILY [facility]CLUDES [facility] Levalbuterol HCl (Levalbuterol Hcl) 1.25 mg INH Q4H PRN PRN Reason: DYSPNEA Levothyroxine Sodium (Synthroid Tab*) 50 mcg PO 0600 [facility] Last Admin: 11/23/17 05:38 Dose: 50 mcg Lisinopril (Prinivil Tab*) 2.5 mg PO DAILY@1500 [facility] Last Admin: 11/23/17 15:29 Dose: 2.5 mg Melatonin (Melatonin (Nf)) 0.5 tab PO BEDTIME COUNT [facility]CLUDES [facility] Mometasone Furoate/Formoterol Fumar (Dulera 200/5 Mdi*) 2 puff INH BID COUNT INCLUDES [facility] Last Admin: 11/23/17 07:38 Dose: 2 puff Morphine Sulfate (Morphine Vial*) 2 mg IV Q2H PRN PRN Reason: air hunger Last Admin: 11/21/17 21:49 Dose: 2 mg Multivitamins/Minerals (Theragran/Minerals Tab*) 1 tab PO DAILY [facility]CLUD[facility] Last Admin: 11/23/17 08:51 Dose: 1 tab Pharmacy Profile Note (Coumadin Daily Reminder*) 1 note FOLLOW UP 1700 [facility] Last Admin: 11/22/17 17:52 Dose: 1 note Polyethylene Glycol/Electrolytes (Miralax*) 17 gm PO DAILY PRN PRN Reason: CONSTIPATION Potassium Chloride (Klor Con Er Tab*) 40 meq PO DAILY [facility] Last Admin: 11/23/17 08:51 Dose: 40 meq Timolol Maleate (Timoptic 0.5% Opth*) 1 drop RIGHT EYE BID COUNT INCLUDES [facility] Last Admin: 11/23/17 08:51 Dose: 1 drop Tiotropium [place] (Spiriva Cap.Inh*) 1 cap INH DAILY [facility] Last Admin: 11/23/17 07:37 Dose: 1 cap Warfarin Sodium (Coumadin Tab(*)) 3 mg PO DAILY@1700 [facility] PRN Reason: Protocol Last Admin: 11/22/17 17:52 Dose: 3 mg Vital Signs - 8 hr 11/23/17 11/23/17 11:42 15:19 Temperature 97.2 F 97.4 F Pulse Rate 102 73 Respiratory 20 26 Rate Blood Pressure 123/67 129/79 (mmHg) O2 Sat by Pulse 98 95 Oximetry Oxygen Devices in Use Now: Nasal Cannula - 5 liters Appearance: Pleasant elderly lady sitting up in a recliner in [facility]. Eyes: No Scleral Icterus Ears/Nose/Mouth/Throat: Mucous Membranes Moist Neck: Trachea Midline Respiratory: Symmetrical Chest Expansion and Respiratory Effort, Clear to Auscultation Cardiovascular: - - Normal S1 and S2, irregularly irregular Neurological: Alert and Oriented x 3 Result Diagrams: 11/22/17 08:01 11/23/17 04:41 Assess/Plan/Problems-Billing Assessment: Ms Holloway is an 87 F with a h/o afib, HTN, CHF and COPD who presented to ED with cough found to have multifocal PNA with stay complicated by hypoxic respiratory failure. - Patient Problems (1) Acute respiratory failure with hypoxia Comment: - Secondary to acute systolic CHF and pneumonia. - O2 requirements are improving - she's down to 5 liters NC at this time. (2) Systolic CHF, acute on chronic Comment: - The patient has required transfer to the ICU twice this admission for presumed acute systolic CHF. She has required BiPAP and recovered well each time. - Echo showed EF 35-40% with ventricular septal wall motion abnormalities secondary to pacer. - Weight down to 112 lbs. - Continue ACEI, hold Torsemide for now. - Her pneumonia was treated, she seems to be at her dry weight, but still requiring 5 liters of O2 - will check CTA chest to r/o PE or any other sources of hypoxia. (3) Pneumonia Comment: - [place] to be multifocal with associated sepsis on admission. - Legionella and pneumococcal Ag are negative. - Completed 7 days of antibiotics. (4) Afib Comment: - Rate is controlled. - Continue Atenolol, Diltiazem, Warfarin. - INR 2.44. (5) HTN (hypertension) Comment: - BP is controlled, but developed hypotension after morning meds - will change medication times so she doesn't receive all antihypertensives at 9AM. (6) Hypothyroidism Comment: - Continue synthroid. (7) DVT prophylaxis Comment: - Warfarin. (8) DNR (do not resuscitate) Status and Disposition: Inpatient. D/c Telemetry.
[2017-11-23] MEDS: CMCS: Melatonin (NF) 3 MG TAB PO SCH (20:10)
[2017-11-23] MEDS: Benzonatate CAP* 100 MG PO SCH (20:14)
[2017-11-24 04:55] LABS: INR 2.07 (0.77-1.02)
[2017-11-24 05:07] LABS: EGFR Non-African American 89.2 (>60)
[2017-11-24] MEDS: Levothyroxine TAB* 50 MCG TAB PO SCH (05:57)
[2017-11-24] MEDS: Atenolol TAB* 50 MG PO SCH (07:49)
[2017-11-24] MEDS: Atorvastatin* 10 MG TAB PO SCH (07:50)
[2017-11-24] MEDS: Multivitamins/Minerals TAB PO SCH (07:50)
[2017-11-24] MEDS: Potassium Chlor TAB* 20 MEQ TAB.ER PO SCH (07:50)
[2017-11-24] MEDS: Timolol 0.5% OPTH.SOL* BTL RIGHT EYE SCH ×2 (07:50→21:14)
[2017-11-24] MEDS: Folic Acid TAB* 1 MG PO SCH (07:50)
[2017-11-24] MEDS: Citalopram TAB* 10 MG PO SCH (07:50)
[2017-11-24] MEDS ORDERED: Furosemide TAB* 20 MG PO SCH (09:00)
--- NOTE | 2017-11-24 09:09 | PN ---
Subjective Date of Service: 11/24/17 Interval History: Pt is feeling ok. She feels like she has mucous stuck in the back of her throat and she can not get it up. She denies any SOB at rest. She has not walked much. Objective Active Medications: Acetaminophen (Tylenol Tab*) 650 mg PO Q4H PRN PRN Reason: FEVER/PAIN Atenolol (Tenormin Tab*) 50 mg PO DAILY [facility] Last Admin: 11/24/17 07:49 Dose: 50 mg Atorvastatin Calcium (Lipitor*) 10 mg PO DAILY [facility] Last Admin: 11/24/17 07:50 Dose: 10 mg Benzonatate (Tessalon Cap*) 200 mg PO BEDTIME [facility] Last Admin: 11/23/17 20:14 Dose: Not Given Citalopram Hydrobromide (Celexa Tab*) 10 mg PO DAILY [facility] PRN Reason: Protocol Last Admin: 11/24/17 07:50 Dose: 10 mg Diltiazem HCl (Cardizem Cd Cap*) 180 mg PO DAILY@1500 [facility] Last Admin: 11/23/17 15:28 Dose: 180 mg Folic Acid (Folvite Tab*) 1 mg PO DAILY [facility] Last Admin: 11/24/17 07:50 Dose: 1 mg Furosemide (Lasix Tab*) 20 mg PO DAILY [facility] Last Admin: 11/24/17 07:49 Dose: 20 mg Levalbuterol HCl (Levalbuterol Hcl) 1.25 mg INH Q4H PRN PRN Reason: DYSPNEA Levothyroxine Sodium (Synthroid Tab*) 50 mcg PO 0600 [facility] Last Admin: 11/24/17 05:57 Dose: 50 mcg Lisinopril (Prinivil Tab*) 2.5 mg PO DAILY@1500 [facility] Last Admin: 11/23/17 15:29 Dose: 2.5 mg Melatonin (Melatonin (Nf)) 1.5 mg PO BEDTIME [facility] Last Admin: 11/23/17 20:10 Dose: 1.5 mg Mometasone Furoate/Formoterol Fumar (Dulera 200/5 Mdi*) 2 puff INH BID [facility] Last Admin: 11/23/17 20:39 Dose: 2 puff Morphine Sulfate (Morphine Vial*) 2 mg IV Q2H PRN PRN Reason: air hunger Last Admin: 11/21/17 21:49 Dose: 2 mg Multivitamins/Minerals (Theragran/Minerals Tab*) 1 tab PO DAILY [facility] Last Admin: 11/24/17 07:50 Dose: 1 tab Pharmacy Profile Note (Coumadin Daily Reminder*) 1 note FOLLOW UP 1700 [facility] Last Admin: 11/23/17 16:44 Dose: 1 note Polyethylene Glycol/Electrolytes (Miralax*) 17 gm PO DAILY PRN PRN Reason: CONSTIPATION Potassium Chloride (Klor Con Er Tab*) 40 meq PO DAILY [facility] Last Admin: 11/24/17 07:50 Dose: 40 meq Timolol Maleate (Timoptic 0.5% Opth*) 1 drop RIGHT EYE BID [facility] Last Admin: 11/24/17 07:50 Dose: 1 drop Tiotropium [place] (Spiriva Cap.Inh*) 1 cap INH DAILY [facility] Last Admin: 11/23/17 07:37 Dose: 1 cap Warfarin Sodium (Coumadin Tab(*)) 3 mg PO DAILY@1700 [facility] PRN Reason: Protocol Last Admin: 11/23/17 16:44 Dose: 3 mg Vital Signs - 8 hr 11/24/17 11/24/17 11/24/17 03:17 06:44 07:21 Temperature 98.3 F 97.6 F Pulse Rate 73 46 Respiratory 16 16 20 Rate Blood Pressure 133/77 103/53 (mmHg) O2 Sat by Pulse 91 90 Oximetry 11/24/17 11/24/17 07:40 07:41 Temperature Pulse Rate 71 Respiratory Rate Blood Pressure (mmHg) O2 Sat by Pulse 90 Oximetry Oxygen Devices in Use Now: Nasal Cannula - 4-5L Appearance: Elderly female sitting up in bed, NAD Eyes: No Scleral Icterus Ears/Nose/Mouth/Throat: Mucous Membranes Moist Respiratory: Symmetrical Chest Expansion and Respiratory Effort, Clear to Auscultation - diminished breath sounds at the bases bilaterally, - - moist loose cough Cardiovascular: NL Sounds; No Murmurs; No JVD, RRR, No Edema Abdominal: NL Sounds; No Tenderness; No Distention Extremities: No Clubbing, Cyanosis Skin: No Nodules or Sclerosis, - - dark purple bruise noted on L hand Neurological: Alert and Oriented x 3 Result Diagrams: 11/22/17 08:01 11/24/17 04:38 Microbiology and Other Data: Microbiology 11/15/17 22:40 Nasal Screen MRSA (PCR)([place]) - Final Nasal Mrsa Not Detected 11/15/17 23:23 Legionella Urinary Antigen - Final Urine Negative Legionella Antigen Streptococcus pneumoniae Ag Screen - Final Negative S. pneumo Antigen Assess/Plan/Problems-Billing Assessment: Ms Holloway is an 87 F with a h/o afib, HTN, CHF and COPD who presented to ED with cough found to have multifocal PNA with stay complicated by hypoxic respiratory failure. - Patient Problems (1) Acute respiratory failure with hypoxia Current Visit: Yes Status: Acute Code(s): J96.01 - ACUTE RESPIRATORY FAILURE WITH HYPOXIA SNOMED Code(s): 70044516 Comment: Secondary to acute systolic CHF and pneumonia. O2 requirements are improving - she's down to 5 liters NC at this time. I suspect her underlying lung disease is complicating her clinical picture (bullae on CT scan c/w emphysema). (2) Systolic CHF, acute on chronic Current Visit: Yes Status: Acute Code(s): I50.23 - ACUTE ON CHRONIC SYSTOLIC (CONGESTIVE) HEART FAILURE SNOMED Code(s): 934670988 Comment: The patient has required transfer to the ICU twice this admission for presumed acute systolic CHF. She has required BiPAP and recovered well each time. She has persistent pulmonary edema on CT with small effusions but does not appear to be grossly fluid overloaded. Hold diuretic today but will likely need to be started on lasix or torsemide prior to d/c for maintenance. (3) Pneumonia Current Visit: Yes Status: Acute Code(s): J18.9 - PNEUMONIA, UNSPECIFIED ORGANISM SNOMED Code(s): 136157522 Comment: [place] to be multifocal with associated sepsis on admission. Completed 7 days of antibiotics. She still has a moist cough. Encourage pulmonary toilet, flutter valve. (4) Afib Current Visit: Yes Status: Acute Code(s): I48.91 - UNSPECIFIED ATRIAL FIBRILLATION SNOMED Code(s): 36331864 Comment: Sounded regular today. Continue diltiazem and atenolol. INR remains therapeutic but is trending down. Increase coumadin to 4mg daily (she takes this dose all days except SUMO when she takes 6mg). Repeat INR tomorrow. (5) HTN (hypertension) Current Visit: Yes Status: Acute Code(s): I10 - ESSENTIAL (PRIMARY) HYPERTENSION SNOMED Code(s): 39437809 Comment: BP is controlled. Continue current regimen. (6) Hypothyroidism Current Visit: Yes Status: Acute Code(s): E03.9 - HYPOTHYROIDISM, UNSPECIFIED SNOMED Code(s): 26344158 Comment: =Continue synthroid. (7) DVT prophylaxis Current Visit: Yes Status: Acute Code(s): ZLE3303 - SNOMED Code(s): 806892533 Comment: Therapeutic INR (8) DNR (do not resuscitate) Current Visit: Yes Status: Acute Status and Disposition: Inpatient. May need STR.
[2017-11-24] MEDS: Tiotropium CAP.INH* CAP.INH/18 MCG (USE ORDER SET !) INH SCH (09:12)
[2017-11-24] MEDS: Mometasone/Formoter 200/5 MDI INH SCH ×2 (09:12→19:38)
[2017-11-24] MEDS: Diltiazem CD CAP* 180 MG PO SCH (15:22)
[2017-11-24] MEDS: Lisinopril TAB* 5 MG PO SCH (15:23)
[2017-11-24] MEDS: Warfarin TAB(*) 4 MG PO SCH (16:30)
[2017-11-24] MEDS: CMCS: Melatonin (NF) 3 MG TAB PO SCH (21:14)
[2017-11-24] MEDS: Benzonatate CAP* 100 MG PO SCH (21:14)
[2017-11-25] MEDS: Levothyroxine TAB* 50 MCG TAB PO SCH (05:44)
[2017-11-25 06:00] LABS: INR 2.29 (0.77-1.02)
[2017-11-25] MEDS: Tiotropium CAP.INH* CAP.INH/18 MCG (USE ORDER SET !) INH SCH (08:24)
[2017-11-25] MEDS: Mometasone/Formoter 200/5 MDI INH SCH ×2 (08:25→20:42)
[2017-11-25] MEDS: Atenolol TAB* 50 MG PO SCH (10:11)
[2017-11-25] MEDS: Citalopram TAB* 10 MG PO SCH (10:11)
[2017-11-25] MEDS: Multivitamins/Minerals TAB PO SCH (10:11)
[2017-11-25] MEDS: Atorvastatin* 10 MG TAB PO SCH (10:11)
[2017-11-25] MEDS: Potassium Chlor TAB* 20 MEQ TAB.ER PO SCH (10:12)
[2017-11-25] MEDS: Folic Acid TAB* 1 MG PO SCH (10:12)
[2017-11-25] MEDS: Timolol 0.5% OPTH.SOL* BTL RIGHT EYE SCH ×2 (10:39→19:54)
--- NOTE | 2017-11-25 11:39 | PN ---
Subjective Date of Service: 11/25/17 Interval History: Patient still coughing, difficult to raise sputum. No SOB at rest. Walks to BR w/ assist. Eating well. Bowels moving. in room, asking about CT results. Had lung mass biopsied w/ outsole splicer in [place] about 1 yr ago. Family History: Unchanged from Admission Social History: Unchanged from Admission Past Medical History: Unchanged from Admission Objective Active Medications: Acetaminophen (Tylenol Tab*) 650 mg PO Q4H PRN PRN Reason: FEVER/PAIN Atenolol (Tenormin Tab*) 50 mg PO DAILY [facility] Last Admin: 11/25/17 10:11 Dose: 50 mg Atorvastatin Calcium (Lipitor*) 10 mg PO DAILY [facility] Last Admin: 11/25/17 10:11 Dose: 10 mg Benzonatate (Tessalon Cap*) 200 mg PO BEDTIME [facility] Last Admin: 11/24/17 21:14 Dose: 200 mg Citalopram Hydrobromide (Celexa Tab*) 10 mg PO DAILY [facility] PRN Reason: Protocol Last Admin: 11/25/17 10:11 Dose: 10 mg Diltiazem HCl (Cardizem Cd Cap*) 180 mg PO DAILY@1500 [facility] Last Admin: 11/24/17 15:22 Dose: 180 mg Folic Acid (Folvite Tab*) 1 mg PO DAILY [facility] Last Admin: 11/25/17 10:12 Dose: 1 mg Levalbuterol HCl (Levalbuterol Hcl) 1.25 mg INH Q4H PRN PRN Reason: DYSPNEA Levothyroxine Sodium (Synthroid Tab*) 50 mcg PO 0600 [facility] Last Admin: 11/25/17 05:44 Dose: 50 mcg Lisinopril (Prinivil Tab*) 2.5 mg PO DAILY@1500 [facility] Last Admin: 11/24/17 15:23 Dose: 2.5 mg Melatonin (Melatonin (Nf)) 1.5 mg PO BEDTIME [facility] Last Admin: 11/24/17 21:14 Dose: 1.5 mg Mometasone Furoate/Formoterol Fumar (Dulera 200/5 Mdi*) 2 puff INH BID [facility] Last Admin: 11/25/17 08:25 Dose: 2 puff Morphine Sulfate (Morphine Vial*) 2 mg IV Q2H PRN PRN Reason: air hunger Last Admin: 11/21/17 21:49 Dose: 2 mg Multivitamins/Minerals (Theragran/Minerals Tab*) 1 tab PO DAILY [facility] Last Admin: 11/25/17 10:11 Dose: 1 tab Pharmacy Profile Note (Coumadin Daily Reminder*) 1 note FOLLOW UP 1700 [facility] Last Admin: 11/24/17 16:30 Dose: 1 note Polyethylene Glycol/Electrolytes (Miralax*) 17 gm PO DAILY PRN PRN Reason: CONSTIPATION Potassium Chloride (Klor Con Er Tab*) 40 meq PO DAILY [facility] Last Admin: 11/25/17 10:12 Dose: 40 meq Timolol Maleate (Timoptic 0.5% Opth*) 1 drop RIGHT EYE BID [facility] Last Admin: 11/25/17 10:39 Dose: 1 drop Tiotropium [place] (Spiriva Cap.Inh*) 1 cap INH DAILY [facility] Last Admin: 11/25/17 08:24 Dose: 1 cap Warfarin Sodium (Coumadin Tab(*)) 4 mg PO DAILY@1700 [facility] PRN Reason: Protocol Last Admin: 11/24/17 16:30 Dose: 4 mg Vital Signs - 8 hr 11/25/17 11/25/17 11/25/17 08:00 08:03 08:15 Temperature 36.4 C Pulse Rate 82 Respiratory 20 20 Rate Blood Pressure 146/72 (mmHg) O2 Sat by Pulse 90 93 Oximetry Oxygen Devices in Use Now: High Flow Nasal Cannula Appearance: no distress Eyes: No Scleral Icterus Ears/Nose/Mouth/Throat: Clear Oropharnyx Neck: NL Appearance and Movements; NL JVP Respiratory: Clear to Percussion, - - diminished throughout, few ronchi upper deal bilat Cardiovascular: NL Sounds; No Murmurs; No JVD, RRR Abdominal: NL Sounds; No Tenderness; No Distention Extremities: No Edema Neurological: Alert and Oriented x 3 Lines/Tubes/Other Access: Clean, Dry and Intact Peripheral IV Nutrition: Taking PO's Result Diagrams: 11/22/17 08:01 11/24/17 04:38 Microbiology and Other Data: Microbiology 11/15/17 22:40 Nasal Screen MRSA (PCR)([place]) - Final Nasal [place] Not Detected 11/15/17 23:23 Legionella Urinary Antigen - Final Urine Negative Legionella Antigen Streptococcus pneumoniae Ag Screen - Final Negative S. pneumo Antigen Assess/Plan/Problems-Billing Assessment: Ms Holloway is an 87 F with a h/o afib, HTN, CHF and COPD who presented to ED with cough found to have multifocal PNA with stay complicated by hypoxic respiratory failure. - Patient Problems (1) Pneumonia Current Visit: Yes Status: Acute Priority: Medium Code(s): J18.9 - PNEUMONIA, UNSPECIFIED ORGANISM SNOMED Code(s): 635147645 Comment: -[place] to be multifocal with associated sepsis on admission. Completed 7 days of antibiotics. -Residual symptoms due to COPD. Encourage pulmonary toilet, flutter valve. (2) CHF (congestive heart failure) Current Visit: Yes Status: Acute Priority: High Code(s): I50.9 - HEART FAILURE, UNSPECIFIED SNOMED Code(s): 25122250 Comment: -Mild decrease in LVEF 11/2016, repeat echo 11/21 EF 35-40% -Weight down, I/O even, volume status euvolemic. -will give lasix if needed (3) Afib Current Visit: Yes Status: Chronic Priority: Medium Code(s): I48.91 - UNSPECIFIED ATRIAL FIBRILLATION SNOMED Code(s): 67743727 Comment: - Rate is controlled. - Continue Atenolol, Diltiazem, Warfarin. - INR 2.29 (4) DVT prophylaxis Current Visit: Yes Status: Acute Priority: Low Code(s): YUD8772 - SNOMED Code(s): 903403663 Comment: Therapeutic INR Status and Disposition: Inpatient. [facility] monday.
[2017-11-25] MEDS: Diltiazem CD CAP* 180 MG PO SCH (15:56)
[2017-11-25] MEDS: Lisinopril TAB* 5 MG PO SCH (15:56)
[2017-11-25] MEDS: Warfarin TAB(*) 4 MG PO SCH (17:28)
[2017-11-25] MEDS: CMCS: Melatonin (NF) 3 MG TAB PO SCH (19:54)
[2017-11-25] MEDS: Benzonatate CAP* 100 MG PO SCH (19:54)
[2017-11-26] MEDS: Levothyroxine TAB* 50 MCG TAB PO SCH (05:11)
[2017-11-26] MEDS: Tiotropium CAP.INH* CAP.INH/18 MCG (USE ORDER SET !) INH SCH (08:20)
[2017-11-26] MEDS: Mometasone/Formoter 200/5 MDI INH SCH ×2 (08:20→20:09)
[2017-11-26] MEDS: Potassium Chlor TAB* 20 MEQ TAB.ER PO SCH (09:25)
[2017-11-26] MEDS: Folic Acid TAB* 1 MG PO SCH (09:26)
[2017-11-26] MEDS: Timolol 0.5% OPTH.SOL* BTL RIGHT EYE SCH ×2 (09:26→21:16)
[2017-11-26] MEDS: Citalopram TAB* 10 MG PO SCH (09:26)
[2017-11-26] MEDS: Multivitamins/Minerals TAB PO SCH (09:26)
[2017-11-26] MEDS: Atorvastatin* 10 MG TAB PO SCH (09:26)
[2017-11-26] MEDS: Atenolol TAB* 50 MG PO SCH (09:26)
[2017-11-26] MEDS: Lisinopril TAB* 5 MG PO SCH (15:54)
[2017-11-26] MEDS: Diltiazem CD CAP* 180 MG PO SCH (15:54)
[2017-11-26] MEDS: Warfarin TAB(*) 4 MG PO SCH (16:57)
[2017-11-26] MEDS ORDERED: guaiFENesin/CODIEN 100MG-10MG* 5 ML UDC PO PRN (17:32)
--- NOTE | 2017-11-26 17:36 | PN ---
Subjective Date of Service: 11/26/17 Interval History: Patient still coughing, but feels breathing is better. Had trouble sleeping last night due to cough. Aware going to rehab facility tomorrow. Family History: Unchanged from Admission Social History: Unchanged from Admission Past Medical History: Unchanged from Admission Objective Active Medications: Acetaminophen (Tylenol Tab*) 650 mg PO Q4H PRN PRN Reason: FEVER/PAIN Atenolol (Tenormin Tab*) 50 mg PO DAILY [facility] Last Admin: 11/26/17 09:26 Dose: 50 mg Atorvastatin Calcium (Lipitor*) 10 mg PO DAILY [facility] Last Admin: 11/26/17 09:26 Dose: 10 mg Benzonatate (Tessalon Cap*) 200 mg PO BEDTIME [facility] Last Admin: 11/25/17 19:54 Dose: 200 mg Citalopram Hydrobromide (Celexa Tab*) 10 mg PO DAILY [facility] PRN Reason: Protocol Last Admin: 11/26/17 09:26 Dose: 10 mg Diltiazem HCl (Cardizem Cd Cap*) 180 mg PO DAILY@1500 [facility] Last Admin: 11/26/17 15:54 Dose: 180 mg Folic Acid (Folvite Tab*) 1 mg PO DAILY [facility] Last Admin: 11/26/17 09:26 Dose: 1 mg Levalbuterol HCl (Levalbuterol Hcl) 1.25 mg INH Q4H PRN PRN Reason: DYSPNEA Levothyroxine Sodium (Synthroid Tab*) 50 mcg PO 0600 [facility] Last Admin: 11/26/17 05:11 Dose: 50 mcg Lisinopril (Prinivil Tab*) 2.5 mg PO DAILY@1500 [facility] Last Admin: 11/26/17 15:54 Dose: 2.5 mg Melatonin (Melatonin (Nf)) 1.5 mg PO BEDTIME [facility] Last Admin: 11/25/17 19:54 Dose: 1.5 mg Mometasone Furoate/Formoterol Fumar (Dulera 200/5 Mdi*) 2 puff INH BID [facility] Last Admin: 11/26/17 08:20 Dose: 2 puff Multivitamins/Minerals (Theragran/Minerals Tab*) 1 tab PO DAILY [facility] Last Admin: 11/26/17 09:26 Dose: 1 tab Pharmacy Profile Note (Coumadin Daily Reminder*) 1 note FOLLOW UP 1700 [facility] Last Admin: 11/26/17 16:57 Dose: 1 note Polyethylene Glycol/Electrolytes (Miralax*) 17 gm PO DAILY PRN PRN Reason: CONSTIPATION Potassium Chloride (Klor Con Er Tab*) 40 meq PO DAILY [facility] Last Admin: 11/26/17 09:25 Dose: 40 meq Timolol Maleate (Timoptic 0.5% Opth*) 1 drop RIGHT EYE BID [facility] Last Admin: 11/26/17 09:26 Dose: 1 drop Tiotropium [place] (Spiriva Cap.Inh*) 1 cap INH DAILY [facility] Last Admin: 11/26/17 08:20 Dose: 1 cap Warfarin Sodium (Coumadin Tab(*)) 4 mg PO DAILY@1700 [facility] PRN Reason: Protocol Last Admin: 11/26/17 16:57 Dose: 4 mg Vital Signs - 8 hr 11/26/17 15:20 Temperature 36.4 C Pulse Rate 66 Respiratory 20 Rate Blood Pressure 135/65 (mmHg) O2 Sat by Pulse 94 Oximetry Oxygen Devices in Use Now: Nasal Cannula Appearance: sitting in chair, eating dinner, loose cough Eyes: No Scleral Icterus Ears/Nose/Mouth/Throat: Clear Oropharnyx Respiratory: - - ronchi RT base, LT base also w/ crackles Cardiovascular: NL Sounds; No Murmurs; No JVD, - - irregular Abdominal: NL Sounds; No Tenderness; No Distention Lymphatic: No Cervical Adenopathy Neurological: Alert and Oriented x 3 Lines/Tubes/Other Access: Clean, Dry and Intact Peripheral IV Result Diagrams: 11/22/17 08:01 11/24/17 04:38 Additional Lab and Data: Laboratory Tests 11/24/17 11/25/17 04:38 05:13 INR (Anticoag Therapy) 2.07 H 2.29 H Assess/Plan/Problems-Billing Assessment: Ms Holloway is an 87 F with a h/o afib, HTN, CHF and COPD who presented to ED with cough found to have multifocal PNA with stay complicated by hypoxic respiratory failure. - Patient Problems (1) Pneumonia Current Visit: Yes Status: Acute Priority: Medium Code(s): J18.9 - PNEUMONIA, UNSPECIFIED ORGANISM SNOMED Code(s): 141966201 Comment: -[place] to be multifocal with associated sepsis on admission. Completed 7 days of antibiotics. -Residual symptoms due to COPD. Encourage pulmonary toilet, flutter valve. (2) CHF (congestive heart failure) Current Visit: Yes Status: Acute Priority: High Code(s): I50.9 - HEART FAILURE, UNSPECIFIED SNOMED Code(s): 08387300 Comment: -Mild decrease in LVEF 11/2016, repeat echo 11/21 EF 35-40% -Weight down, I/O even, volume status euvolemic. -would give lasix if needed (3) Afib Current Visit: Yes Status: Chronic Priority: Medium Code(s): I48.91 - UNSPECIFIED ATRIAL FIBRILLATION SNOMED Code(s): 09912484 Comment: - Rate is controlled. - Continue Atenolol, Diltiazem, Warfarin. - INR in goal range 2-3 (4) DVT prophylaxis Current Visit: Yes Status: Acute Priority: Low Code(s): CCV5468 - SNOMED Code(s): 700513854 Comment: Therapeutic INR Status and Disposition: Inpatient. [facility] Monday
[2017-11-26] MEDS: CMCS: Melatonin (NF) 3 MG TAB PO SCH (21:08)
[2017-11-26] MEDS: Benzonatate CAP* 100 MG PO SCH (21:19)
[2017-11-27] MEDS: Levothyroxine TAB* 50 MCG TAB PO SCH ×2 (05:49→06:51)
[2017-11-27] MEDS: Mometasone/Formoter 200/5 MDI INH SCH (07:23)
[2017-11-27] MEDS: Tiotropium CAP.INH* CAP.INH/18 MCG (USE ORDER SET !) INH SCH (07:24)
[2017-11-27 08:11] VITALS: BP 131/63
[2017-11-27] MEDS: Citalopram TAB* 10 MG PO SCH (09:48)
[2017-11-27] MEDS: Atenolol TAB* 50 MG PO SCH (09:50)
[2017-11-27] MEDS: Folic Acid TAB* 1 MG PO SCH (09:51)
[2017-11-27] MEDS: Atorvastatin* 10 MG TAB PO SCH (09:52)
[2017-11-27] MEDS: Multivitamins/Minerals TAB PO SCH (09:53)
[2017-11-27] MEDS: Potassium Chlor TAB* 20 MEQ TAB.ER PO SCH (09:54)
[2017-11-27] MEDS: Timolol 0.5% OPTH.SOL* BTL RIGHT EYE SCH (09:57)
[2017-11-27] MEDS ORDERED: Furosemide TAB* 20 MG PO SCH (12:00)
--- NOTE | 2017-11-27 12:57 | DS ---
CC: Dr. Glenys Das; Dr. Mj Khan, [place], [place]; Dr. Paula; [facility] * DATE OF ADMISSION: 11/15/2017. DATE OF DISCHARGE: 11/27/2017. ADMITTING PROVIDER: Elizabeth Guadalupe NP. PRIMARY CARE PHYSICIAN: Dr. Glenys Das. OUTPATIENT BUSINESS CONTINUITY MANAGEMENT DIRECTOR: Dr. Mj Khan. OUTPATIENT PHONE CIRCUIT OPERATOR: Dr. Paula. CHIEF COMPLAINT: Cough, generalized weakness. PRINCIPAL DIAGNOSES: Multifocal pneumonia; hypoxic respiratory failure; sepsis ; congestive heart failure with moderate to severe tricuspid valve regurgitation. HISTORY OF PRESENT ILLNESS AND HOSPITAL COURSE: Betty Holloway is an 87-year-old female with a past medical history of atrial fibrillation, CVA, hypertension, hyperlipidemia, hypothyroidism, GERD, COPD, CHF, T12 compression fracture, glaucoma with legal blindness, pulmonary nodule status status post biopsy with Dr. Khan one year ago, reportedly negative, who presented with occasional mild productive cough and shortness of breath, dry heaves, nausea, some abdominal discomfort, and generalized weakness. These were not improved with increase in her ProAir. In the emergency room, she was found to have a chest x-ray with multifocal bilateral consolidation, elevated BMP of 629. There was concern for sepsis secondary to pneumonia (she had tachycardia, tachypnea, fever of 101.2 rectally, along with hypoxic respiratory failure requiring 6 liters of oxygen. She was started on Ceftriaxone and Azithromycin which she had a seven day course ultimately of antibiotics. She never had a leukocytosis and she defervesced. Her MRSA naris screen was negative. She had negative streptococcus pneumonia and Legionella urine antigen test. Blood cultures were negative times five days. She intermittently required BiPAP in the ICU for hypoxic respiratory failure. She had a repeat echocardiogram on November 20 which showed a slightly worse ejection fraction with an EF of 35 to 40 percent, some moderate to severe tricuspid valve regurgitation, moderate mitral valve regurgitation, mild to moderate pulmonary hypertension, and a moderate left pleural effusion. She got IV diuretics after getting IV fluid bolus the first day for sepsis protocol. Her weights decreased; one admission was 49.9 kg, peak was 54 kg on November 18 and decreased to 48.4 kg on the day of discharge. She did not know her dry weight. She is being discharged back on her Lasix 20 mg daily. She is currently requiring 3 liters of oxygen which is new. She is being discharged to [facility] for continued physical therapy. She should follow-up with Dr. Paula and record her weights daily. Her Coumadin was slightly supratherapeutic at 3.03 on admission and her Warfarin was reduced initially to 3 and then up to 4, which she will be discharged daily on 4 from alternating between 4 and 6 previously. DISCHARGE MEDICATIONS: 1. Atenolol 50 mg daily. 2. Diltiazem 180 mg daily. 3. Lexapro 5 mg p.o. daily. 4. Folic acid 1 mg p.o. daily. 5. Synthroid 50 mcg p.o. q.a.m. 6. Dulera two puffs inhaled b.i.d. 7. Multivitamin one tab p.o. daily. 8. MiraLax 17 gm p.o. daily. 9. Potassium Chloride 20 mEq p.o. daily. 10. Simvastatin 20 mg p.o. daily. 11. Timolol one drop right eye b.i.d. 12. Spiriva one capsule inhaled daily. 13. Warfarin 4 mg p.o. at 1700 daily (decreased from alternating 4 and 6). 14. Tylenol 650 mg p.o. q.4 hours prn pain or fever. 15. Albuterol ProAir one to two puffs inhaled q.6 hours prn. 16. Tessalon 200 mg p.o. at bedtime prn cough (new). 17. Bifidobacterium Infantis (Align) 4 mg p.o. q.a.m. 18. Caltrate 600+D Plus tab one to two tabs p.o. daily. 19. Prolia 60 mg subq 6 months. 20. Lasix 20 mg p.o. daily. 21. Robitussin 5 ml p.o. q.6 hours prn cough. 21. Lisinopril 2.5 mg p.o. daily (new). 22. Melatonin one tab p.o. daily prn for insomnia. DISCHARGE DIET: Heart-healthy, unchanged. ACTIVITY LEVEL: No restrictions, requiring physical therapy. FOLLOW-UP: Please follow-up with Dr. Glenys Das within three to five days of discharge from [facility] and Dr. Vijay Paula within one to two weeks of discharge from [facility]. TIME SPENT ON THIS DISCHARGE: 35 minutes. [id number]/[facility] #: [id number] ISHAN
== END 2017-11-27 14:10 | DRG 871 ==
LOC: ED 09:29 → MED 13:22 → ICU 22:28 → MED 11-18 10:50 → ICU 11-19 02:02 → MEDTELE 11-22 14:30 → SSU 11-26 19:38
PROVIDERS: ADMIT Internal Medicine; ATTEND Internal Medicine
PROC: 5A09357 Assistance with Respiratory Ventilation, Less than 24 Consecutive Hours, Continuous Positive Airway Pressure (ICD-10-PCS; principal; 2017-11-15)
PROC: 0T9B70Z Drainage of Bladder with Drainage Device, Via Natural or Artificial Opening (ICD-10-PCS; 2017-11-15)
DX: A41.9 Sepsis, unspecified organism (principal); J18.9 Pneumonia, unspecified organism; J96.01 Acute respiratory failure with hypoxia; I50.23 Acute on chronic systolic (congestive) heart failure; H33.20 Serous retinal detachment, unspecified eye; J44.0 Chronic obstructive pulmonary disease with (acute) lower respiratory infection; M81.0 Age-related osteoporosis without current pathological fracture; H91.90 Unspecified hearing loss, unspecified ear; H54.8 Legal blindness, as defined in USA; K21.9 Gastro-esophageal reflux disease without esophagitis; K57.90 Diverticulosis of intestine, part unspecified, without perforation or abscess without bleeding; K58.9 Irritable bowel syndrome, unspecified; I48.91 Unspecified atrial fibrillation; I11.0 Hypertensive heart disease with heart failure; I50.9 Heart failure, unspecified; E78.5 Hyperlipidemia, unspecified; E03.9 Hypothyroidism, unspecified; I44.7 Left bundle-branch block, unspecified; E73.9 Lactose intolerance, unspecified; I45.81 Long QT syndrome; H40.9 Unspecified glaucoma; F32.9 Major depressive disorder, single episode, unspecified; D47.2 Monoclonal gammopathy; R91.8 Other nonspecific abnormal finding of lung field; R21 Rash and other nonspecific skin eruption; Z66 Do not resuscitate; I27.20 Pulmonary hypertension, unspecified; I08.1 Rheumatic disorders of both mitral and tricuspid valves; Z88.6 Allergy status to analgesic agent; Z88.1 Allergy status to other antibiotic agents; Z88.0 Allergy status to penicillin; Z97.4 Presence of external hearing-aid; Z86.73 Personal history of transient ischemic attack (TIA), and cerebral infarction without residual deficits; Z88.2 Allergy status to sulfonamides; Z88.8 Allergy status to other drugs, medicaments and biological substances; Z82.49 Family history of ischemic heart disease and other diseases of the circulatory system; Z72.89 Other problems related to lifestyle; Z87.891 Personal history of nicotine dependence; Z90.710 Acquired absence of both cervix and uterus; Z85.828 Personal history of other malignant neoplasm of skin; Z98.42 Cataract extraction status, left eye; Z98.41 Cataract extraction status, right eye; Z95.810 Presence of automatic (implantable) cardiac defibrillator
CPT/HCPCS: 36415; 71045; 71275; 74177; 80048; 80053; 81003; 81015; 83605; 83615; 83735; 83880; 84145; 84484; 85025; 85027; 85610; 85730; 86140; 86880; 87040; 87086; 87641; 87899; 93005; 93306; 94640; 94660; 99284; A9270-GY; G8978-GP-CK; G8979-GP-CI; G8979-GP-CJ; G8987-GO-CL; G8988-GO-CI; G8989-GO-CI; J0456; J0696; J1940; J2270; Q9967

== ENCOUNTER 2018-01-18 10:34 | Inpatient (IN) | payer MEDICARE ==
--- NOTE | 2018-01-18 10:40 | ED ---
Shortness of Breath - HPI Summary HPI Summary: This is scribe Rojelio Guan documenting for attending Cortez Muñiz MD. Patient is a 87 y/o F BIBA w/ c/o SOB onsetting yesterday. Patient reports being hospitalized in mid-October of 2017. 2.5 weeks after release, she reports SOB onset. She notes SOB worsened last night. Patient notes the onset of a non- productive cough and dry heaving this morning as well. Ambulance was called today this morning. On triage, it is noted that EMS put her on O2 which alleviated Sx. She denies chest pain, palpitations, fever, SINHA, vision changes, bladder problems, and dizziness. On triage, pain is denied. Exertion is noted to worsen Sx. Hx of COPD is noted, patient denies currently smoking. Patient was admitted earlier this year with PNA. Allergies and home medications are reviewed. - History of Current Complaint Time Seen by Provider: 01/18/18 10:37 Hx Obtained From: Patient Onset/Duration: Lasting Weeks - onset in early November of 2017, Worse Since - yesterday Timing: Constant Current Severity: None - pain is denied on triage Aggrevating Factors: Other - exertion Alleviating Factors: Oxygen Associated Signs & Symptoms: Cough (Nonproductive) - Allergy/Home Medications Allergies/Adverse Reactions: Allergies Allergy/AdvReac Type Severity Reaction Status Date / Time bimatoprost [From Lumigan] Allergy See Comment Verified 01/18/18 11:23 brimonidine Allergy Unknown Verified 01/18/18 11:23 Reaction Details levofloxacin Allergy See Comment Verified 01/18/18 11:23 Sulfa (Sulfonamide Allergy Unknown Verified 01/18/18 11:23 Antibiotics) Reaction Details temazepam Allergy Unknown Verified 01/18/18 11:23 Reaction Details tramadol Allergy Unknown Verified 01/18/18 11:23 Reaction Details amoxicillin AdvReac Intermediate Diarrhea Verified 01/18/18 11:23 nitrofurantoin AdvReac Intermediate Headache Verified 01/18/18 11:23 ciprofloxacin AdvReac Mild Stomach Verified 01/18/18 11:23 Cramps metronidazole AdvReac Mild Stomach Verified 01/18/18 11:23 Cramps lactose AdvReac GI Upset Verified 01/18/18 11:23 rivaroxaban AdvReac See Comment Verified 01/18/18 11:23 Home Medications: Home Medications Acetaminophen [Ra 8 Hour Pain Relief] 650 mg PO Q4H PRN 01/18/18 [History Confirmed 01/18/18] Albuterol HFA INHALER* [Ventolin HFA Inhaler*] 1 - 2 puff INH Q4H PRN 01/18/18 [ History Confirmed 01/18/18] Atenolol TAB* [Tenormin TAB* 25 MG] 25 mg PO BID 01/18/18 [History Confirmed ] Benzonatate CAP* [Tessalon 100 MG CAP*] 100 mg PO TID PRN 01/18/18 [History Confirmed 01/18/18] Bifidobacterium Infantis [Align] 4 mg PO DAILY 01/18/18 [History Confirmed 01/18] Calcium/D3/Mag Ox/Tool Lathe Operator/Benjamin/Zn [Caltrate 600+D Plus Min 300-800 mg-Unit] 1 tab PO BID 01/18/18 [History Confirmed 01/18/18] Denosumab(NF) [Prolia(NF)] 60 mg IM .EVERY 6 MONTHS 01/18/18 [History Confirmed 01/18/18] Diltiazem CD CAP* [Cardizem CD CAP*] 180 mg PO DAILY 01/18/18 [History Confirmed 01/18/18] Escitalopram (NF) [Lexapro 10 mg (NF)] 10 mg PO DAILY 01/18/18 [History Confirmed 01/18/18] Folic Acid TAB* [Folvite TAB*] 1 mg PO DAILY 01/18/18 [History Confirmed ] Furosemide TAB* [Lasix TAB*] 20 mg PO DAILY 01/18/18 [History Confirmed 01/18/18 ] Levothyroxine TAB* [Synthroid TAB*] 50 mcg PO DAILY 01/18/18 [History Confirmed 01/18/18] Lisinopril TAB* [Prinivil TAB*] 2.5 mg PO DAILY 01/18/18 [History Confirmed ] Melatonin (NF) 1.5 mg PO BEDTIME 01/18/18 [History Confirmed 01/18/18] Mometasone/Formoter 200/5 MDI* [Dulera 200/5 MDI*] 2 puff INH BID 01/18/18 [ History Confirmed 01/18/18] Polyethylene Glycol 3350* [Miralax*] 17 gm PO DAILY PRN 01/18/18 [History Confirmed 01/18/18] Potassium Chlor TAB* [Klor Con ER TAB*] 20 meq PO DAILY 01/18/18 [History Confirmed 01/18/18] Simvastatin (NF) [Zocor (NF)] 20 mg PO BEDTIME 01/18/18 [History Confirmed 01/18] Timolol 0.5% OPTH.JOSÉ MIGUEL* [Timoptic 0.5% Opth*] 1 drop RIGHT EYE BID 01/18/18 [ History Confirmed 01/18/18] Tiotropium CAP.INH* [Spiriva CAP.INH*] 1 cap.inh INH QAM 01/18/18 [History Confirmed 01/18/18] Warfarin TAB(*) [Coumadin TAB(*)] 4 mg PO DAILY 01/18/18 [History Confirmed ] guaiFENesin LIQ* [Robitussin*] 5 mg PO Q6H PRN 01/18/18 [History Confirmed 01/18] PMH/Surg Hx/FS Hx/Imm Hx Endocrine/Hematology History: Reports: Hx Thyroid Disease Cardiovascular History: Reports: Hx Atrial Fibrillation, Hx Auto Implanted Cardiovert Defib, Hx Congestive Heart Failure, Hx Hypertension, Hx Pacemaker/ICD , Other Cardiovascular Problems/Disorders - A-fib Respiratory History: Reports: Hx Asthma, Hx Chronic Obstructive Pulmonary Disease (COPD), Hx Pneumonia GI History: Reports: Hx Diverticulosis, Hx Gastroesophageal Reflux Disease, Hx Irritable Bowel Musculoskeletal History: Reports: Hx Back Problems - General aches, Hx Osteoporosis Sensory History: Reports: Hx Cataracts, Hx Contacts or Glasses, Hx Legally Blind , Hx Vision Problem, Hx Deafness, Hx Hearing Aid, Hx Hearing Problem, Other Sensory Impairments - hx retinal detachment Opthamlomology History: Reports: Hx Cataracts, Hx Contacts or Glasses, Hx Legally Blind, Hx Vision Problem, Other Sensory Impairments - hx retinal detachment Neurological History: Reports: Other Neuro Impairments/Disorders - CVA 2005 - Cancer History Cancer Type, Location 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 BREAST BIOPSY x2, c-secton, hysterectomy , ICD, appe - Surgical History Surgery Procedure, Year, and Place: Hysterectomy. skin ca excision nose. Breast bx pt has a [id number]. bunion surgery. cataract surgery - Family History Known Family History: Positive: None, Cardiac Disease - Social History Alcohol Use: Occasionally Alcohol Amount: With dinner, 2-3 oz Hx Substance Use: No Substance Use Type: Reports: None Hx Tobacco Use: Yes Smoking Status (MU): Former Smoker Type: Cigarettes Amount Used/How Often: 1 PPD Length of Time of Smoking/Using Tobacco: 35 Have You Smoked in the Last Year: No Review of Systems Negative: Fever Positive: Other - NEGATIVE: vision changes Negative: Palpitations, Chest Pain Positive: Shortness Of Breath, Cough - non-productive Positive: Other - patient reports dry heaving this morning Positive: other - NEGATIVE: bladder problems Neurological: Other - NEGATIVE: dizziness Negative: Headache All Other Systems Reviewed And Are Negative: Yes Physical Exam - Summary Physical Exam Summary: VITAL SIGNS: Reviewed. GENERAL: Patient is a fragile female who is lying comfortable in the stretcher. Patient is using a non-rebreather mask and is on 10 L O2. HEAD AND FACE: No signs of trauma. No ecchymosis, hematomas or skull depressions. No sinus tenderness. EYES: PERRLA, EOMI x 2, No injected conjunctiva, no nystagmus. EARS: Hearing grossly intact. Ear canals and tympanic membranes are within normal limits. MOUTH: Oropharynx within normal limits. NECK: Supple, trachea is midline, no adenopathy, no JVD, no carotid bruit, no c- spine tenderness, neck with full ROM. CHEST: Symmetric, no tenderness at palpation LUNGS: Clear to auscultation bilaterally. Wheezing is noted as present, no crackles. Decreased breathing sounds. CVS: Regular rate and rhythm, S1 and S2 present, no murmurs or gallops appreciated. ABDOMEN: Soft, non-tender. No signs of distention. No rebound no guarding, and no masses palpated. Bowel sounds are normal. EXTREMITIES: FROM in all major joints, no edema, no cyanosis or clubbing. NEURO: Alert and oriented x 3. No acute neurological deficits. Speech is normal and follows commands. SKIN: Dry and warm Triage Information Reviewed: Yes Vital Signs On Initial Exam: Initial Vitals Temp Pulse Resp BP Pulse Ox 98.7 F 99 20 146/100 96 01/18/18 10:38 01/18/18 10:38 01/18/18 10:38 01/18/18 10:38 01/18/18 10:38 Vital Signs Reviewed: Yes Diagnostics - Laboratory Result Diagrams: 01/18/18 10:51 01/18/18 10:51 Lab Statement: Any lab studies that have been ordered have been reviewed, and results considered in the medical decision making process. - Radiology CXR Xray Interpretation: Positive (See Comments) Radiology Interpretation Completed By: Radiologist - Interstitial and alveolar edema with interval improvement bilateral effusions. This report was reviewed by ED physician. - EKG 1051 Cardiac Rate: Tachycardia - Rate of 104 BPM EKG Rhythm: Atrial Fibrillation EKG Interpretation: LVH; this EKG is similar to one taken on 11/16/17 EKG Comparison: No Significant Change Re-Evaluation - Re-Evaluation First Eval Re-Evaluation Time: 11:50 Comment: Discussed results of tests with patient as well as likely admission of patient to [facility] [place] for further work-up. Course/Dx - Course Assessment/Plan: This patient is an 87-year-old female who presents to the emergency department with a chief complaint of shortness of breath. Patient reports that she started having symptoms about 2 days ago. She denies any chest pain or palpitations. Patient denies any headache or dizziness. Patient denies any bladder patient or visual changes. Patient has past medical history significant for atrial fibrillation on Coumadin, hypertension, dyslipidemia, COPD, anemia, CHF, hypothyroidism. Blood test results without significant abnormality except for troponin of 0.32 and BNP of 1270. In the ED course the patient was given aspirin, Lopressor, nitroglycerin disimpact. She was also given Lasix for the CHF exacerbation. Patient also was given 2 nebs and Solu- Medrol since the patient was wheezing and having a COPD exacerbation. At this time I did not give Cardizem to the patient since and giving Lopressor 50 heart rate is ranging between 100 to 110. At this time I discussed my physical exam findings and test results with Dr. Navarro from the hospitalist services was accepted the patient for admission. At this time the patient is hemodynamically stable alert and oriented 3. - Diagnoses Differential Diagnosis/HQI/PQRI: Positive: Bronchitis, CHF, COPD Exacerbation, OK, Pulmonary Edema Provider Diagnoses: Elevated troponin, COPD exacerbation, CHF exacerbation, Atrial fibrillation with RVR - Physician Notifications Discussed Care of Patient With: Olamide Navarro Time Discussed With Above Provider: 11:57 Instructed by Provider To: Other - Dr. Navarro was consulted with regards to patient's case at 11:57. She accepts patient for admission to hospital. - Critical Care Time Critical Care Time: 30-74 min Discharge - Sign-Out/Discharge Documenting (check all that apply): Patient Departure - admit - Discharge Plan Condition: Good Disposition: ADMITTED TO [facility] Referrals: Glenys Das MD [Primary Care Provider] -
[2018-01-18] MEDS ORDERED: methylPREDNISolone 125 MG* 2 ML VIAL IV ONE (10:42)
[2018-01-18] MEDS: Albuterol/Ipratropium NEB.SOL* Albuterol 2.5 MG/Ipratropium 0.5 MG 3 ML INH SCH ×3 (11:00→11:41)
[2018-01-18 11:10] LABS: ABS Basophils 0.1 10^3/ul (0-0.2); ABS Eosinophils 0.1 10^3/ul (0-0.6); ABS Lymphocytes 0.9 10^3/ul (1.0-4.8); ABS Monocytes 0.7 10^3/ul (0-0.8); ABS Neutrophils 6.9 10^3/ul (1.5-7.7); ABS Nucleated RBC 0 10^3/ul; Eosinophil % 0.8 % (0-6); Hematocrit 39 % (35-47); Hemoglobin 12.5 g/dl (12.0-16.0); Lymphocyte % 10.1 % (25-47); Mean Corpuscular HGB Conc 32 g/dl (31-36); Mean Corpuscular Hemoglobin 29 pg (27-31); Mean Corpuscular Volume 90 fL (80-97); Mean Platelet Volume 7.5 um3 (7.4-10.4); Nucleated Red Blood Cells % 0.2; Platelet Count 256 10^3/ul (150-450); Red Blood Count 4.29 10^6/ul (4.00-5.40); Red Cell Distribution Width 20 % (10.5-15); White Blood Count 8.6 10^3/ul (3.5-10.8)
[2018-01-18 11:41] LABS: EGFR Non-African American 66.7 (>60)
[2018-01-18] MEDS ORDERED: Aspirin 81 mg CHEW TAB* 81 MG TAB.CHEW PO ONE (11:44)
[2018-01-18] MEDS ORDERED: Metoprolol Tartrate TAB* 25 MG PO ONE ×2 (11:44)
[2018-01-18] MEDS ORDERED: Nitroglycerin 2% OINT* 1 GM PAK TOPICAL ONE (11:45)
[2018-01-18] MEDS ORDERED: Furosemide IV* 10 MG/ML 2 ML VIAL (20 MG) IV ONE (11:58)
--- NOTE | 2018-01-18 12:27 | RAD ---
INDICATION: Short of breath COMPARISON: November 15, 2017 TECHNIQUE: PA and lateral dual-energy views were obtained. FINDINGS: Bones/Soft Tissues: There are no acute bony findings. There is left-sided cardiac pacemaker. Cardiomediastinal: The heart is normal in size. The central pulmonary vessels remain prominent. Lungs: There is hyperinflation with diffuse interstitial and alveolar edema. There is improvement in the degree of alveolar change. Pleura: There are bilateral effusions. Other: None IMPRESSION: INTERSTITIAL AND ALVEOLAR EDEMA WITH INTERVAL IMPROVEMENT. BILATERAL EFFUSIONS.
[2018-01-18] MEDS ORDERED: oxyCODONE/Acetamin 5/325 MG* TAB PO PRN (12:52)
[2018-01-18] MEDS ORDERED: Al Hydrox/Mg Hydrox/Simet LIQ* 30 ML UDC PO PRN (12:52)
[2018-01-18] MEDS ORDERED: Ondansetron INJ* 2 MG/ML VIAL IV PRN (12:52)
[2018-01-18] MEDS ORDERED: Magnesium Hydroxide LIQ* 30 ML UDC PO PRN (12:52)
[2018-01-18] MEDS ORDERED: Albuterol/Ipratropium NEB.SOL* Albuterol 2.5 MG/Ipratropium 0.5 MG 3 ML INH PRN (12:52)
[2018-01-18] MEDS ORDERED: Polyethylene Glycol 3350* 17 GM PACKET PO PRN (12:59)
[2018-01-18] MEDS ORDERED: Benzonatate CAP* 100 MG PO PRN (12:59)
[2018-01-18] MEDS ORDERED: guaiFENesin LIQ* 100 MG/5 ML UDC PO PRN (12:59)
[2018-01-18] MEDS ORDERED: Albuterol HFA INHALER* 8 gm MDI INH PRN (12:59)
[2018-01-18 13:12] LABS: Urine Appearance Clear; Urine Blood Negative (Negative); Urine Color Yellow; Urine Ketones Negative (Negative); Urine Protein Negative (Negative); Urine Specific Gravity 1.013 (1.010-1.030); Urine Urobilinogen Negative (Negative)
[2018-01-18 13:23] LABS: INR 3.48 (0.77-1.02)
--- NOTE | 2018-01-18 15:54 | HP ---
CC: Dr. Glenys Das. * HISTORY AND PHYSICAL: DATE OF ADMISSION: 01/18/18 PATIENT OF: Olamide Navarro DO, as attending hospitalist.* (DICTATED BY GWEN WILKINSON) PRIMARY CARE PROVIDER: Dr. Glenys Das. CHIEF COMPLAINT: Shortness of breath. HISTORY OF PRESENT ILLNESS: Mrs. Holloway is an 87-year-old female with past medical history significant for atrial fibrillation, CVA, hypertension, hyperlipidemia, GERD, COPD with exacerbation as well as history of glaucoma, congestive heart failure, T12 compression fracture and multiple other medical issues who presented to the emergency room today with 2 days history of worsening shortness of breath. The patient was recently here in the hospital in late October, early November where she battled a long admission related to pneumonia and eventually ended up being discharged to [facility] for short-term rehab. She stayed there for a couple of weeks and eventually was discharged home. She reports that since her discharge from the hospital in mid November, she still has not been "breathing right." She reports occasional shortness of breath , usually worse in the morning upon awakening up with associated dry, nonproductive cough, but denies any fever, chills, wheezing, or any other associated symptoms. She has never used any home oxygen in the past. She has longstanding history of COPD related to history of smoking, but for the most has been under control. She denied any chest pain, ankle swelling, or difficulty urination. She notes that her shortness of breath has gotten worse, for which she presented to the emergency room today for further evaluation. She had laboratory workup that revealed elevated troponin with value of 0.32. Again, the patient denied any history of chest pain. She was also found to have an elevated BNP of 1270 and a chest x-ray that was consistent with pulmonary edema, for which we were asked to see the patient for further evaluation of probable CHF exacerbation and to consider admission. PAST MEDICAL HISTORY: As mentioned above, multiple medical issues includin. Atrial fibrillation. 2. CVA. 3. Hypertension. 4. Hyperlipidemia. 5. Hypothyroidism. 6. GERD. 7. History of skin cancer. 8. History of left bundle branch block. 9. History of COPD. 10. Glaucoma. The patient is legally blind on her right eye. 11. Congestive heart failure with exacerbations. 12. T12 compression fracture. 13. Pulmonary nodules. 14. Monoclonal gammopathy. PAST SURGICAL HISTORY: Significant for breast biopsies, bunion surgery, excision of skin cancer from her nose, sections, appendectomy, hysterectomy, ICD placement. MEDICATIONS: Her home medication include, 1. Tylenol 650 mg q.6 hours as needed for fever or pain. 2. Albuterol MDI inhaler 2 puffs inhaled q.4 hours as needed for shortness of breath. 3. Atenolol 25 mg p.o. b.i.d. 4. Tessalon caps 100 mg p.o. t.i.d. 5. Multivitamin with minerals 1 tablet p.o. b.i.d. 6. Prolia 60 mg injection every 6 months. 7. Cardizem 180 mg p.o. daily. 8. Lexapro 10 mg p.o. daily. 9. Folic acid 1 mg p.o. daily. 10. Lasix 20 mg p.o. daily. 11. Robitussin 1 teaspoon q.6 hours as needed for cough. 12. Synthroid 50 mcg p.o. daily. 13. Lisinopril 2.5 mg p.o. daily. 14. Melatonin 1.5 mg p.o. q.h.s. as needed for insomnia. 15. Dulera inhaler 2 puffs inhaled b.i.d. 16. MiraLax 17 g p.o. daily. 18. KCl 20 mEq p.o. daily. 19. Zocor 20 mg p.o. q.h.s. 20. Timolol ophthalmic solution 0.5% 1 drop in the right eye once daily. 21. Spiriva inhaler 18 mcg 1 inhaled daily. 22. Coumadin 4 mg p.o. daily. ALLERGIES: Multiple allergies including LUMIGAN, LEVAQUIN, SULFA ANTIBIOTICS, RESTORIL, TRAMADOL, AMOXICILLIN, NITROFURANTOIN, CIPRO, METRONIDAZOLE, LACTOSE INTOLERANCE, AND XARELTO. FAMILY HISTORY: Mother with history of heart disease as well as her brother and another brother who from an [place] in his 80s. Also father in 1930s from unknown cancer. SOCIAL HISTORY: The patient is a former smoker, smoked for approximately 20 years in 60s and 70s about a pack per day and quit smoking in 1977. She denies alcohol or recreational drug use. Her Raúl Holloway is her surrogate decision maker. She wishes to be a full code. REVIEW OF SYSTEMS: See HPI, otherwise a 12-point review of system were examined and were essentially negative. PHYSICAL EXAMINATION GENERAL: She is a pleasant elderly female, appears comfortable and in no acute distress or discomfort at the time of admission. VITAL SIGNS: Revealed a blood pressure of 140/108, pulse of 110, temperature of 98.7, respirations of 26 with O2 sat of 95% on 6 L oxygen via mask. HEENT: Head is normocephalic, atraumatic. Sclerae anicteric. Left pupil reactive to light and accommodation. Right pupil is nonreactive. EOMs on the left side is intact, absent on the right side. Oropharynx is pink and moist. NECK: Supple, trachea midline. No cervical adenopathy or thyromegaly. LUNGS: Decreased breath sounds throughout. There are no wheezes or rhonchi noted. HEART: Regular rate and rhythm. Normal S1, S2 without murmurs. ABDOMEN: Soft, nontender, and nondistended. No hernias, masses, or hepatosplenomegaly. BACK: Normal curvature. No CVA tenderness. BREAST: Exam deferred at this time. EXTREMITIES: Without cyanosis, clubbing, or edema. RECTAL: Exam deferred at this time. NEUROLOGIC: She is awake, alert, and oriented x3. Tongue is midline. Motor and sensory grossly intact. LABORATORY WORKUP: CBC with count of 8600, hemoglobin 12.5, hematocrit 39, platelets of 256. Her chemistry panel was sodium of 141, potassium 4.2, chloride 109, CO2 of 27, BUN of 18, and creatinine of 0.8. Her lactic acid is 1.1. LFTs within normal limits. Troponin elevated at 0.32 and BNP elevated at 1270. ACCESSORY DIAGNOSTIC DATA: Chest x-ray showed evidence of interstitial and alveolar edema with interval improvement compared to prior study in late October of this year. There are minimal bilateral effusions as well. EKG reviewed, showed atrial fibrillation without any acute ST changes. IMPRESSION: This is an 87-year-old female with multiple complex medical issues including chronic atrial fibrillation, cerebrovascular accident, hypertension, hyperlipidemia, congestive heart failure as well as chronic obstructive pulmonary disease with exacerbation who presented to the emergency room with complaints of 2 days history of worsening shortness of breath with associated dry cough and was found to have elevated troponin with no evidence of chest pain and also elevated BNP with chest x-ray significant for congestive heart failure exacerbations. ASSESSMENT AND PLAN: 1. Congestive heart failure with exacerbation: The patient feels better already in the emergency room after she received a dose of Lasix and DuoNeb. She has been maintained on a 6 L oxygen via mask with good oxygen saturation and good symptomatic relief of her shortness of breath. Her lactic acid was stable and she did not show any evidence of leukocytosis and not running fever or chills ruling out any possibility of pneumonia, which she was treated for about 6 weeks ago. We will be careful with fluid resuscitation and will have strict intake and output for her as well and will keep monitor her respiratory status. 2. Elevated troponin: This has been a new finding compared to her prior troponin checks from admission back in October. She continued to exhibit no chest pain and I suspect this is likely need and demand in nature given her congestive heart failure exacerbation and shortness of breath. We will obtain a trending troponin and repeat an EKG tomorrow morning. Her last echocardiogram was reviewed from end of October with known tricuspid valve disease and I will hold off any echocardiogram for the time being unless her clinical course deteriorates. 3. Chronic atrial fibrillation: She has been running in the low 100s to 120s and we will continue her on home Cardizem and I will continue her warfarin for now; however, the PT/INR has been pending at the time of admission. 4. Chronic obstructive pulmonary disease: She does not seem to be in chronic obstructive pulmonary disease exacerbation and I do not appreciate any wheezing on exam and it appears to be related to congestive heart failure with exacerbation as the actual cause of her shortness of breath. We will continue her nebulizer treatment as well as home inhalers. We will do daily weights with strict Is and Os as mentioned above. 5. History of depression: We will continue her Lexapro. 6. History of cerebrovascular accident: The patient will continue her statin and await her INR findings to determine her warfarin therapy dosage. 7. Hypothyroidism: We will continue her on home levothyroxine. 8. Hyperlipidemia: We will continue her statin. 9. Hypertension: She appears to be slightly hypertensive upon admission. We will continue her blood pressure medicine including Cardizem. 10. FEN: She will continue her heart-healthy diet with low sodium. 11. DVT prophylaxis: The patient at high risk. She is currently on warfarin and her PT/INR has been ordered and results are pending at this time. She does not have any lower extremity edema, for which a mechanical DVT prophylaxis will be added. 12. Code status: She is full code. 13. Disposition: Inpatient, admit to telemetry for serial troponin recheck, rule out acute coronary syndrome in the lack of chest pain on presentation and for treatment of congestive heart failure with exacerbation. TIME SPENT: Approximately 60 minutes spent admitting this patient with greater than 50% on taking history and performing physical exam. I went on and explained to the family the rationale of admission and they are all in agreement and I will also get social services aide on board for possible discharge to short term rehab back to [facility] pending how she clinically does over the next few days. I have discussed that plan with my attending, Dr. Navarro, who agreed and will follow her up accordingly. GWEN WILKINSON [id number]/CPS #: [id number] MTDD
[2018-01-18] MEDS ORDERED: Warfarin TAB(*) 4 MG PO SCH (17:00)
[2018-01-18] MEDS: Atorvastatin* 10 MG TAB PO SCH (20:27)
[2018-01-18] MEDS: Timolol 0.5% OPTH.SOL* BTL RIGHT EYE SCH (20:28)
[2018-01-18] MEDS: Atenolol TAB* 25 MG PO SCH (20:28)
[2018-01-18] MEDS: Melatonin 3 MG TAB PO SCH (20:28)
[2018-01-18] MEDS: Mometasone/Formoter 200/5 MDI INH SCH (21:44)
[2018-01-19] MEDS: Levothyroxine TAB* 50 MCG TAB PO SCH (05:42)
[2018-01-19 05:59] LABS: ABS Basophils 0 10^3/ul (0-0.2); ABS Eosinophils 0 10^3/ul (0-0.6); ABS Lymphocytes 0.5 10^3/ul (1.0-4.8); ABS Monocytes 0.3 10^3/ul (0-0.8); ABS Neutrophils 5.9 10^3/ul (1.5-7.7); ABS Nucleated RBC 0 10^3/ul; Eosinophil % 0 % (0-6); Hematocrit 32 % (35-47); Hemoglobin 10.6 g/dl (12.0-16.0); Lymphocyte % 7.5 % (25-47); Mean Corpuscular HGB Conc 33 g/dl (31-36); Mean Corpuscular Hemoglobin 30 pg (27-31); Mean Corpuscular Volume 88 fL (80-97); Mean Platelet Volume 7.8 um3 (7.4-10.4); Nucleated Red Blood Cells % 0.1; Platelet Count 209 10^3/ul (150-450); Red Cell Distribution Width 19 % (10.5-15); White Blood Count 6.7 10^3/ul (3.5-10.8)
[2018-01-19 06:03] LABS: INR 2.86 (0.77-1.02)
[2018-01-19 06:15] LABS: EGFR Non-African American 74.1 (>60)
[2018-01-19] MEDS: Tiotropium CAP.INH* CAP.INH/18 MCG (USE ORDER SET !) INH SCH (07:48)
[2018-01-19] MEDS: Mometasone/Formoter 200/5 MDI INH SCH ×2 (07:49→20:22)
[2018-01-19] MEDS ORDERED: Lisinopril TAB* 5 MG PO SCH ×2 (09:00→21:00)
[2018-01-19] MEDS ORDERED: Diltiazem CD CAP* 180 MG PO SCH (09:00)
[2018-01-19] MEDS ORDERED: Furosemide TAB* 20 MG PO SCH (09:00)
[2018-01-19] MEDS: Timolol 0.5% OPTH.SOL* BTL RIGHT EYE SCH ×2 (09:53→20:31)
[2018-01-19] MEDS: Potassium Chlor TAB* 20 MEQ TAB.ER PO SCH (09:53)
[2018-01-19] MEDS: Citalopram TAB* 20 MG PO SCH (09:53)
[2018-01-19] MEDS: Folic Acid TAB* 1 MG PO SCH (09:55)
[2018-01-19] MEDS: Atenolol TAB* 25 MG PO SCH ×3 (09:55→20:29)
[2018-01-19] MEDS ORDERED: Furosemide IV* 10 MG/ML 2 ML VIAL (20 MG) IV ONE (10:23)
--- NOTE | 2018-01-19 16:06 | PN ---
Subjective Date of Service: 01/19/18 Interval History: Patient seen and examined. States SOB at rest, unproductive cough, epigastric pain earlier today. Denies fever or chills, at bedside. Objective Active Medications: Acetaminophen (Tylenol Tab*) 650 mg PO Q4H PRN PRN Reason: FEVER/PAIN Al Hydrox/Mg Hydrox/Simethicone (Maalox Plus*) 30 ml PO Q6H PRN PRN Reason: INDIGESTION Albuterol (Ventolin Hfa Inhaler*) 2 puff INH Q4H PRN PRN Reason: SOB/WHEEZING Albuterol/Ipratropium (Duoneb (Albuterol 2.5 Mg/Ipratropium 0.5 Mg)) 1 neb INH RT.[id number] AWAKE PRN PRN Reason: sob/wheexing Atenolol (Tenormin Tab*) 25 mg PO BID [facility] Last Admin: 01/19/18 10:05 Dose: 25 mg Atorvastatin Calcium (Lipitor*) 10 mg PO BEDTIME [facility] Last Admin: 01/18/18 20:27 Dose: 10 mg Benzonatate (Tessalon Cap*) 100 mg PO TID PRN PRN Reason: COUGH Citalopram Hydrobromide (Celexa Tab*) 20 mg PO DAILY [facility] Last Admin: 01/19/18 09:53 Dose: 20 mg Diltiazem HCl (Cardizem Cd Cap*) 180 mg PO DAILY [facility] Last Admin: 01/19/18 09:53 Dose: 180 mg Folic Acid (Folvite Tab*) 1 mg PO DAILY [facility] Last Admin: 01/19/18 09:55 Dose: 1 mg Furosemide (Lasix Iv*) 20 mg IV DAILY ONE Stop: 01/20/18 09:01 Guaifenesin (Robitussin*) 5 ml PO Q6H PRN PRN Reason: COUGH Levothyroxine Sodium (Synthroid Tab*) 50 mcg PO DAILY@0600 [facility] Last Admin: 01/19/18 05:42 Dose: 50 mcg Lisinopril (Prinivil Tab*) 2.5 mg PO BEDTIME [facility] Magnesium Hydroxide (Milk Of Magnesia Liq*) 30 ml PO Q4H PRN PRN Reason: CONSTIPATION Melatonin (Melatonin) 1.5 mg PO BEDTIME [facility] Last Admin: 01/18/18 20:28 Dose: 1.5 mg Mometasone Furoate/Formoterol Fumar (Dulera 200/5 Mdi*) 2 puff INH BID [facility] Last Admin: 01/19/18 07:49 Dose: 2 puff Ondansetron HCl (Zofran Inj*) 4 mg IV Q4H PRN PRN Reason: NAUSEA/VOMITING Oxycodone/Acetaminophen (Percocet 5/325 Tab*) 1 tab PO Q4H PRN PRN Reason: Pain Polyethylene Glycol/Electrolytes (Miralax*) 17 gm PO DAILY PRN PRN Reason: CONSTIPATION Potassium Chloride (Klor Con Er Tab*) 20 meq PO DAILY [facility] Last Admin: 01/19/18 09:53 Dose: 20 meq Timolol Maleate (Timoptic 0.5% Opth*) 1 drop RIGHT EYE BID [facility] Last Admin: 01/19/18 09:53 Dose: 1 drop Tiotropium [place] (Spiriva Cap.Inh*) 1 cap INH QAM [facility] Last Admin: 01/19/18 07:48 Dose: 1 cap Vital Signs - 8 hr 01/19/18 01/19/18 10:58 15:13 Temperature 97.9 F 98.0 F Pulse Rate 101 111 Respiratory 20 20 Rate Blood Pressure 125/92 139/73 (mmHg) O2 Sat by Pulse 100 95 Oximetry Oxygen Devices in Use Now: Nasal Cannula Appearance: Alert, NAD Eyes: No Scleral Icterus, PERRLA Ears/Nose/Mouth/Throat: NL Teeth, Lips, Gums, Mucous Membranes Moist Neck: NL Appearance and Movements; NL JVP, Trachea Midline Respiratory: Symmetrical Chest Expansion and Respiratory Effort, - - bilateral rales, 1/3 up the bases, with expiratory wheeze Cardiovascular: NL Sounds; No Murmurs; No JVD, - - irregular, afib on tele Abdominal: NL Sounds; No Tenderness; No Distention Extremities: No Edema Skin: No Rash or Ulcers Neurological: Alert and Oriented x 3, NL Sensation Nutrition: Taking PO's Result Diagrams: 01/19/18 05:22 01/19/18 05:22 Diagnostic Imaging: Patient Name: SHERIF BALLESTEROS Medical Record#: [id number] Ordering Physician: Cortez Muñiz MD Acct.#: [id number] : 1930 Age: 87 Sex: F Location: EMERGENCY DEPARTMENT Exam Date: 01/18/18 1042 ADM Status: REG ER Order Information: CHEST PA & LAT 2 VWS Accession Number: [id number] CPT: 49799 INDICATION: Short of breath COMPARISON: November 15, 2017 TECHNIQUE: PA and lateral dual-energy views were obtained. FINDINGS: Bones/Soft Tissues: There are no acute bony findings. There is left-sided cardiac pacemaker. Cardiomediastinal: The heart is normal in size. The central pulmonary vessels remain prominent. Lungs: There is hyperinflation with diffuse interstitial and alveolar edema. There is improvement in the degree of alveolar change. Pleura: There are bilateral effusions. Other: None IMPRESSION: INTERSTITIAL AND ALVEOLAR EDEMA WITH INTERVAL IMPROVEMENT. BILATERAL EFFUSIONS. <Electronically signed by Mateusz Caldera MD in OV> 01/18/18 1223 Dictated By: Mateusz Caldera MD Dictated Date/Time: 01/18/18 1223 Transcribed Date/Time: 01/18/18 1221 Copy to: Assess/Plan/Problems-Billing Assessment: This is an 87 year old female patient with hx of a-fib, HF, COPD and HTN that presented with acute SOB to the ER, found to be in acute on chronic congestive heart failure. - Patient Problems (1) Systolic CHF, acute on chronic Code(s): I50.23 - ACUTE ON CHRONIC SYSTOLIC (CONGESTIVE) HEART FAILURE SNOMED Code(s): 512727974 Comment: - Recent admission in october/november for exacerbation of HF and pleural effusions tht required bipap - Patient stable on O2 via NC at present - Daily weights, strict I&Os - Lasix 20mg IV daily - Consulted cardiology - Repeat echo, BNP >1000, repeat in AM after diuresed - SOB does not appear to be related to COPD (2) Afib Code(s): I48.91 - UNSPECIFIED ATRIAL FIBRILLATION SNOMED Code(s): 19297698 Comment: - Continue diltiazem and atenolol - Remains in afib on tele, rate controlled - continue AC and follow INR, goal 2-3, coumadin held last night, restart tomorrow (3) COPD (chronic obstructive pulmonary disease) Code(s): J44.9 - CHRONIC OBSTRUCTIVE PULMONARY DISEASE, UNSPECIFIED SNOMED Code(s): 79326749 Comment: - continue home regimen, supportive O2 and nebs - SOB seems more exacerbation of CHF rather than COPD (4) Hx of glaucoma Code(s): Z86.69 - PERSONAL HISTORY OF DIS OF THE NERVOUS SYS AND SENSE ORGANS SNOMED Code(s): 530908901 Comment: - Legally blind, continue eye drops (5) Lung nodule Code(s): R91.1 - SOLITARY PULMONARY NODULE SNOMED Code(s): 496759978 Comment: - biopsied two years ago, benign (6) DVT prophylaxis Code(s): QJW5552 - SNOMED Code(s): 426890257 Comment: - On coumadin (7) DNR (do not resuscitate) Status and Disposition: remain inpatient.
--- NOTE | 2018-01-19 17:52 | ECHO ---
Patient: SHERIF BALLESTEROS [facility] Rec#: [id number] : 1930 Date: 01/19/2018 Age: 87y Height: 160 cm / 63.0 in Weight: 49 kg / 108.0 lbs Sex: F BSA: 1.49 Room#: [facility] Admit Date#: 01/18/2018 Type: Inpatient Referring: Patricia Iraheta Reading: Everett Jefferson MD Operations Research Analyst: Elizabeth Kc RN RDCS CC: SADIQ MCCLENDON Transthoracic Echocardiogram Indication: CHF BP: 125/92 HR: 101 Rhythm: A-Fib Findings History: A. fib, ICD implant, LBBB, CHF, HTN, HLD, CVA, thyroid disease, COPD, former smoker Technical Comments: The study quality is fair. The study is technically limited due to the patient's history of COPD. The study is technically limited due to the patient's smoking history. Left Ventricle: The left ventricular chamber size is normal. There is increased basal septal hypertrophy noted without evidence of an increased gradient across the left ventricular outflow tract. Septal knuckle measures 1.3cm. There is global hypokinesis of the left ventricle with minor regional variation.The inferior and infero septal lopez appear to be more severely hypokinetic to akinetic. There is severely decreased left ventricular systolic function. The estimated ejection fraction is 25-30%. closer to 25%. There is abnormal ventricular septal wall motion consistent with right ventricular pacemaker. There is a left ventricular septal wall motion abnormality observed, possibly due to the presence of a left bundle branch block. The assessment of diastolic function is non-diagnostic. Left Atrium: The left atrium is mildly dilated. Right Ventricle: The right ventricular cavity size is normal. The right ventricular global systolic function is mildly reduced. A pacemaker wire is visualized in the right ventricle. Right Atrium: The right atrium is mildly dilated. A pacemaker wire is visualized in the right atrium. Aortic Valve: The aortic valve is trileaflet. The aortic valve leaflets are moderately thickened. Systolic excursion of the aortic valve cusps is reduced. There is mild aortic regurgitation. There is moderate aortic stenosis. Mitral Valve: There is mitral annular calcification. The mitral valve leaflets are mildly thickened. There is moderate mitral regurgitation. There is no evidence of mitral stenosis. Tricuspid Valve: The tricuspid valve leaflets are normal. There is moderate to severe tricuspid regurgitation. There is evidence of mild to moderate pulmonary hypertension. There is no tricuspid stenosis. Pulmonic Valve: The pulmonic valve appears normal. There is trace to mild pulmonic regurgitation. There is no pulmonic stenosis. Pericardium: There is no significant pericardial effusion. A left pleural effusion is present. Aorta: There is no dilatation of the ascending aorta. There is no dilatation of the aortic arch. There is no dilation of the aortic root. Pulmonary Artery: The main pulmonary artery appears normal. Venous: The inferior vena cava appears normal in size. There is an approximate 50% respiratory change in the inferior vena cava dimension. Conclusions There is global hypokinesis of the left ventricle with minor regional variation.The inferior and infero septal lopez appear to be more severely hypokinetic to akinetic. There is severely decreased left ventricular systolic function. The estimated ejection fraction is 25-30%, closer to 25%. There is abnormal ventricular septal wall motion consistent with right ventricular pacemaker. The aortic valve leaflets are moderately thickened. There is mild aortic regurgitation. There is moderate aortic stenosis. There is moderate mitral regurgitation. There is moderate to severe tricuspid regurgitation. There is evidence of mild to moderate pulmonary hypertension. A left pleural effusion is present. The EF has decreased from 35-40% in 10/2017 to 25% now. The Aortic valve velocities are similar; moderate by continuity. Consider low gradient vs pseudo aortic stenosis due to low CO. Measurements Name Value Normal Range RVDdMajor (2D) 3 cm (2.2 - 4.4) RAd ISD 4CH 5.3 cm (3.4 - 4.9) RA (A4C)W 4.2 cm (2.9 - 4.6) IVSd (2D) 1 cm (0.6 - 1) LVPWd (2D) 1 cm (0.6 - 1) LVIDd (2D) 4.2 cm (3.6 - 5.4) LVIDs (2D) 3.7 cm - LV FS (2D) 12 % (25 - 45) Aortic Annulus 1.6 cm (1.4 - 2.6) Ao root diameter (2D) 2.6 cm (2.1 - 3.5) Ascending Ao 2.9 cm (2.1 - 3.4) Aortic arch 2.6 cm (1.8 - 3.4) LA dimension (AP) 2D 3.6 cm (2.3 - 3.8) LAd ISD 4CH 5.8 cm (2.9 - 5.3) LA ISD 4CH W 4.1 cm (2.5 - 4.5) Name Value Normal Range LA ESV SP 4CH (A/L) 60 ml - LA ESV SP 2CH (A/L) 52 ml - LA ESV BP (A/L) 58 ml - LA ESV BP (A/L) index 39 ml/m2 - LA ESV SP 4CH (MOD) 56 ml - LA ESV SP 2CH (MOD) 50 ml - Name Value Normal Range MV E-wave Vmax 1.2 m/sec - MV deceleration time 151 msec - LV septal e' Vmax 0.04 m/sec - LV lateral e' Vmax 0.06 m/sec - LV E:e' septal ratio 30 ratio - LV E:e' lateral ratio 20 ratio - Name Value Normal Range AV Vmax 1.6 m/sec - AV VTI 27.9 cm - AV peak gradient 10.2 mmHg - AV mean gradient 6.1 mmHg - LVOT diameter 1.7 cm - LVOT Vmax 0.71 m/sec - LVOT VTI 11.4 cm - LVOT peak gradient 2 mmHg - LVOT mean gradient 1 mmHg - DOI (VTI) 0.41 ratio - DOI (Vmax) 0.44 ratio - FRANKY (continuity Vmax) 1 cm2 - FRANKY (continuity VTI) 0.9 cm2 - JANENE Vmax 0.31 m/sec - Name Value Normal Range MR Vmax 5 m/sec - MR VTI 148.6 cm - MR volume (PISA) 16.4 ml - MR flow (PISA) 55 ml/sec - MR ERO 0.11 cm2 - MR PISA radius 0.5 cm - MR alias Vmax 35 cm/sec - Name Value Normal Range TR Vmax 3.3 m/sec - TR peak gradient 44 mmHg - RAP 8 mmHg - RVSP 52 mmHg - IVC diameter 1.5 cm - Name Value Normal Range PV Vmax 0.7 m/sec -
[2018-01-19] MEDS: Melatonin 3 MG TAB PO SCH (20:30)
[2018-01-19] MEDS: Atorvastatin* 10 MG TAB PO SCH (20:30)
[2018-01-19] MEDS: Digoxin IV* 0.5 MG/2 ML AMP (0.25 MG/ML) IV SLOW PU SCH (21:07)
[2018-01-19] MEDS: Acetaminophen TAB* 325 MG PO PRN (23:05)
[2018-01-20] MEDS: Digoxin IV* 0.5 MG/2 ML AMP (0.25 MG/ML) IV SLOW PU SCH ×2 (01:03→05:01)
--- NOTE | 2018-01-20 02:01 | CONS ---
Amended report to enter date of consultation. CC: Everett Jefferson MD; Dr. Flores; Dr. Das CARDIOLOGY CONSULTATION REPORT: DATE OF CONSULT: 01/19/2018. REQUESTING PHYSICIAN: Shauna Bonilla REASON FOR EVALUATION: Congestive heart failure, troponin elevation. HISTORY OF PRESENT ILLNESS: This is a very pleasant 87-year-old woman, who has been followed by Dr. Paula. She has a longstanding history of tachybrady syndrome and mild LV dysfunction in the past. She also had COPD, atrial fibrillation, hypertension, hyperlipidemia. In 2016, she had an echocardiogram , which showed normal LV function and a stress test that was negative for ischemia. She developed pneumonia in April of 2017, requiring admission and a convalescence at a [facility]. Shortly after she came home, she developed vertebral compression fracture, required another course of rehab. She said that she had to be weaned off oxygen and was doing somewhat better in July, was still recovering. However in October, she developed another episode of shortness of breath and was thought to have multifocal pneumonia, sepsis, hypoxic respiratory failure, congestive heart failure with mild to severe TR. She had an echocardiogram during that admission, which showed ejection fraction at 35 to 40%, [id number]-[id number] TR, moderate MR, mild-to- moderate pulmonary hypertension, moderate left pleural effusion. She required 3 L of oxygen and was discharged to [facility]. She said the last 3 days prior to admission, she was more short of breath and developed epigastric discomfort. She has trouble describing the pain, but said that it was persistent. It was on and off Monday and persistent all day, Monday and because of those symptoms, she decided to come to the emergency room yesterday. Prior to coming to the emergency room, she was noted to have O2 sat at home by 88, it is usually above 90. Her called the paramedics, she was started on oxygen and had relief of her abdominal pain. In the emergency room, she was noted to have mildly elevated troponins and a chest x-ray suggestive of congestive heart failure and elevated BNP of 1270. Her initial troponin was 0.32 and has come down to 0.23 as of today. She reports she is feeling much better after diuresis. She denies any chest pain or palpitations. No orthopnea, no peripheral edema. She uses a walker to get around her house. She does not go up and down stairs, but normally when she feels well, she can go short distances in the house with her walker without stopping for shortness of breath. She denies any strokes or mini strokes. No diarrhea, hematemesis, hematochezia, or dysuria. PAST MEDICAL HISTORY: Includes atrial fibrillation, tachybrady syndrome, or pacemaker placement in May 2006, and replaced in November of 2016. She had a DVT a couple of years ago despite Xarelto and was switched to Coumadin and seen by Dr. Flores. 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 She has a history of COPD, hyperlipidemia, hypothyroidism, benign monoclonal gammopathy. She had diverticulosis and had diverticulitis in June 2013. She has glaucoma and is legally blind in the right eye. 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 PAST SURGICAL HISTORY: Includes , bunions, cataract, right eye surgeries, hysterectomy, and incidental appendectomy. MEDICATIONS: She uses Tylenol. Her inpatient medicines include: 1. Potassium 20 mEq a day. 2. Spiriva. 3. Timoptic. 4. Polyethylene glycol. 5. MiraLAX 17 g p.r.n. daily. 6. Lisinopril 2.5 mg at night. 7. Magnesium hydroxide 30 cc p.r.n. 8. Melatonin 1.5 mg p.o. at bedtime. 9. Synthroid 50 mcg a day. 10. Lasix IV 20 mg once a day. 11. Robitussin p.r.n. 12. Cardizem 180 mg a day. 13. Citalopram 20 mg a day. 14. Atorvastatin 10 mg a day. 15. Atenolol 25 mg b.i.d. Home medicines include: Similar list except she was on simvastatin 20 mg instead of Lipitor and she was on furosemide 20 mg a day and Lexapro 10 mg day instead of the Celexa. ALLERGIES: Include LUMIGAN; BRIMONIDINE; LEVOFLOXACIN; SULFA; TEMAZEPAM; TRAMADOL; AMOXICILLIN, diarrhea; NITROFURANTOIN, headache; CIPROFLOXACIN, stomach cramps; METRONIDAZOLE, stomach cramps; LACTOSE, GI upset; and XARELTO, she had DVT despite being on XARELTO. SOCIAL HISTORY: She is and lives with her second , Raheem Holloway. She had 1 child with the first and had 3 stepchildren, one of the stepchildren . She denies any alcohol since June. She does report she adds salt to her food. She has a history of tobacco use of a pack a day for 25 years, discontinued in . REVIEW OF SYSTEMS: Review of systems x10 was negative except as above. PHYSICAL EXAM: Her average heart rates are about 100, ranging from 90s to 120s on the phototypesetting equipment monitor and her blood pressures were initially elevated on of 146/100, 147/98, but has come down to 135/75 this evening. She is a well-developed, well-nourished, frail-appearing elderly female, in no apparent distress. She is alert and oriented x3. JVD of approximately 14 cm. Carotid are 2+ without bruits. Extraocular muscles intact. Sclerae are anicteric. No cervical lymphadenopathy, no thyromegaly. Cardiac Exam: S1 and S2 with a 2/6 systolic ejection murmur at the left sternal border and a 3 to 4/6 holosystolic murmur at the left lower sternal border and apex. Chest was clear after coughing. There is mild kyphosis and increased resonance to percussion. Abdomen : Bowel sounds present, nontender. Femoral pulses intact without bruits. Distal pulses intact. No edema. Motor strength 5/5 bilaterally. Deep tendon reflexes 2/4. Alert and oriented x3. DIAGNOSTIC STUDIES/LAB DATA: Labs include sodium of 139, potassium of 3.6, BUN of 20, creatinine of 0.74, elevated glucose of 160. Troponins 0.32, 0.24, 0.26 , and 0.23. Elevated CRP of 8.7. BNP elevated at 1270. White count of 6.7, hemoglobin of 10.6, hematocrit of 32, platelet count of 209. INR of 2.86. EKG revealed atrial fibrillation with rapid ventricular response and left bundle - branch block and that was from 01/19/18 and at times, she appears to have left bundle-branch block. On the rhythm strip, she appears to have demand pacemaker as well. Echocardiogram from today revealed further decrease in her EF, global hypokinesis with minor regional variations, the inferior and inferoseptal lopez appeared to be more severely hypokinetic to akinetic. EF was 25 to 30% close to 25% severely reduced, mild AI, moderate aortic stenosis, moderate MR, moderate-to- severe TR, [id number]-rx-dzypmrka pulmonary hypertension, left pleural effusion, EF is decreased from 35 to 40% in October 2017 to 25% now. Aortic valve had similar velocities, moderate by continuity considered low- gradient versus pseudo aortic stenosis due to low cardiac output and of note , she also had a cardiac catheterization. She did have a catheterization performed in March 2008. At that time, she had chest pain and abnormal stress nuclear, mild inferior wall defect, possible small inferior AZ with jeanna- infarct ischemia. She had normal LV function. No wall motion abnormalities. She had mild left anterior descending stenosis of only 20%. Her echo from November 2016 revealed an EF of 45 to 50%, mild global hypokinesis, mild LVH, zjce-bi-sqvfnpor aortic stenosis, valve area of 1.1 cm2 with a low gradient of 8 mm mean, jlkhl-jj-txri MR. IMPRESSION AND PLAN: My impression is that Ms. Holloway has heart failure and progressive deterioration of her LV function over the last several months of unclear etiology possibly these include ischemic heart disease as well as tachycardia-induced cardiomyopathy from elevated heart rates and atrial fibrillation as well as pacer-induced cardiomyopathy, which seems less likely given she is using a pacemaker only a small fraction at time based on the last interrogation and observation here. Other possibilities include amyloid cardiomyopathy or myocarditis or other nonischemic cardiomyopathy. She also has increasing MR, which may be contributing to low cardiac output. Her does not appear to be severe. I suspect there may be some degree of pseudoaortic stenosis to her low cardiac output. I discussed the findings with the patient. Fortunately she is feeling better after diuresis, but I did explain that decrease in heart function is concerning and may increase her risk for arrhythmias and morbidity and mortality. At present, she is 87 years old and has requested a do not resuscitate status. For the time being, I have recommended optimizing her heart failure regimen. We could consider further evaluation for possible upgrade to biventricular pacemaker ICD if her EF fails to improve or perhaps referral for biopsy for possible amyloid. Given her advanced age and limited treatment options, it is reasonable to pursue a conservative course at this time as well. For the time being I would recommend the followin. Discontinue her Cardizem given her low EF. 2. I would recommend more aggressive rate control. We will try optimizing her beta-blockers. 3. I would also add digoxin to try to better control heart rate with exacerbating her LV dysfunction. 4. I have asked her to decrease the salt in her diet. 5. She is to advance her heart failure regimen including advance her lisinopril and perhaps adding Aldactone as tolerated. Given her multiple drug intolerances, I would probably advance one at a time. 6. We would continue diuresis as tolerated. 7. We will check her dig level and repeat her CRP and sed rate tomorrow. 8. It is unclear if the troponin is due to ischemic process or perhaps heart failure or an infiltrative process such as amyloid, we will continue to follow up for now. Further recommendations will depend on her clinical course. [id number]/[facility] #: [id number] addendum: 01/20/18 discussed with her at the bedside and Dr. Susannah Flores who has kindly agreed to see her as an outpatient. DEANDRE OLMSTEAD
[2018-01-20] MEDS: Acetaminophen TAB* 325 MG PO PRN (03:37)
[2018-01-20] MEDS: Levothyroxine TAB* 50 MCG TAB PO SCH (05:01)
[2018-01-20 06:55] LABS: ABS Basophils 0 10^3/ul (0-0.2); ABS Eosinophils 0 10^3/ul (0-0.6); ABS Lymphocytes 0.8 10^3/ul (1.0-4.8); ABS Monocytes 0.7 10^3/ul (0-0.8); ABS Neutrophils 7.3 10^3/ul (1.5-7.7); ABS Nucleated RBC 0 10^3/ul; Eosinophil % 0.1 % (0-6); Hematocrit 34 % (35-47); Hemoglobin 11.3 g/dl (12.0-16.0); Lymphocyte % 9.4 % (25-47); Mean Corpuscular HGB Conc 34 g/dl (31-36); Mean Corpuscular Hemoglobin 30 pg (27-31); Mean Corpuscular Volume 88 fL (80-97); Mean Platelet Volume 7.4 um3 (7.4-10.4); Nucleated Red Blood Cells % 0.1; Platelet Count 236 10^3/ul (150-450); Red Blood Count 3.83 10^6/ul (4.00-5.40); Red Cell Distribution Width 19 % (10.5-15); White Blood Count 8.8 10^3/ul (3.5-10.8)
[2018-01-20 07:13] LABS: EGFR Non-African American 84.5 (>60)
[2018-01-20] MEDS: Mometasone/Formoter 200/5 MDI INH SCH ×2 (07:40→19:34)
[2018-01-20] MEDS: Tiotropium CAP.INH* CAP.INH/18 MCG (USE ORDER SET !) INH SCH (07:42)
[2018-01-20] MEDS: Timolol 0.5% OPTH.SOL* BTL RIGHT EYE SCH ×2 (08:16→21:14)
[2018-01-20] MEDS: Citalopram TAB* 20 MG PO SCH (08:17)
[2018-01-20] MEDS: Potassium Chlor TAB* 20 MEQ TAB.ER PO SCH (08:17)
[2018-01-20] MEDS: Folic Acid TAB* 1 MG PO SCH (08:17)
[2018-01-20] MEDS: Atenolol TAB* 25 MG PO SCH ×2 (08:17→21:15)
[2018-01-20] MEDS ORDERED: Furosemide IV* 10 MG/ML 2 ML VIAL (20 MG) IV ONE (09:00)
[2018-01-20] MEDS ORDERED: Lisinopril TAB* 5 MG PO ONE (10:27)
[2018-01-20] MEDS: Spironolactone TAB* 25 MG PO SCH (11:12)
--- NOTE | 2018-01-20 15:09 | PN ---
Subjective Date of Service: 01/20/18 Interval History: Denies shortness of breath, chest pain or cough. denies home orthopnea or PND. Afebrile Now on room air. net negative 1.3L and dropped ~3kg on weights. Got 40IV lasix total yesterday. Digoxin loading (got .75mg total last night and this morning). HR down to 60s from 110s. had epigastric pain day prior and morning of admission. resolved with O2 with EMS. Objective Active Medications: Acetaminophen (Tylenol Tab*) 650 mg PO Q4H PRN PRN Reason: FEVER/PAIN Last Admin: 01/20/18 03:37 Dose: 650 mg Al Hydrox/Mg Hydrox/Simethicone (Maalox Plus*) 30 ml PO Q6H PRN PRN Reason: INDIGESTION Albuterol (Ventolin Hfa Inhaler*) 2 puff INH Q4H PRN PRN Reason: SOB/WHEEZING Albuterol/Ipratropium (Duoneb (Albuterol 2.5 Mg/Ipratropium 0.5 Mg)) 1 neb INH [id number] AWAKE PRN PRN Reason: sob/wheexing Atenolol (Tenormin Tab*) 25 mg PO BID [facility] Last Admin: 01/20/18 08:17 Dose: 25 mg Atorvastatin Calcium (Lipitor*) 10 mg PO BEDTIME [facility] Last Admin: 01/19/18 20:30 Dose: 10 mg Benzonatate (Tessalon Cap*) 100 mg PO TID PRN PRN Reason: COUGH Citalopram Hydrobromide (Celexa Tab*) 20 mg PO DAILY [facility] Last Admin: 01/20/18 08:17 Dose: 20 mg Folic Acid (Folvite Tab*) 1 mg PO DAILY [facility] Last Admin: 01/20/18 08:17 Dose: 1 mg Guaifenesin (Robitussin*) 5 ml PO Q6H PRN PRN Reason: COUGH Levothyroxine Sodium (Synthroid Tab*) 50 mcg PO DAILY@0600 [facility] Last Admin: 01/20/18 05:01 Dose: 50 mcg Lisinopril (Prinivil Tab*) 2.5 mg PO BID [facility] Magnesium Hydroxide (Milk Of Magnesia Liq*) 30 ml PO Q4H PRN PRN Reason: CONSTIPATION Melatonin (Melatonin) 1.5 mg PO BEDTIME [facility] Last Admin: 01/19/18 20:30 Dose: 1.5 mg Mometasone Furoate/Formoterol Fumar (Dulera 200/5 Mdi*) 2 puff INH BID [facility] Last Admin: 01/20/18 07:40 Dose: 2 puff Ondansetron HCl (Zofran Inj*) 4 mg IV Q4H PRN PRN Reason: NAUSEA/VOMITING Oxycodone/Acetaminophen (Percocet 5/325 Tab*) 1 tab PO Q4H PRN PRN Reason: Pain Polyethylene Glycol/Electrolytes (Miralax*) 17 gm PO DAILY PRN PRN Reason: CONSTIPATION Potassium Chloride (Klor Con Er Tab*) 20 meq PO DAILY [facility] Last Admin: 01/20/18 08:17 Dose: 20 meq Spironolactone (Aldactone Tab*) 25 mg PO DAILY [facility] Last Admin: 01/20/18 11:12 Dose: 25 mg Timolol Maleate (Timoptic 0.5% Opth*) 1 drop RIGHT EYE BID [facility] Last Admin: 01/20/18 08:16 Dose: 1 drop Tiotropium [place] (Spiriva Cap.Inh*) 1 cap INH QAM [facility] Last Admin: 01/20/18 07:42 Dose: 1 cap Warfarin Sodium (Coumadin Tab(*)) 3 mg PO DAILY@1700 SARAH; Protocol Vital Signs - 8 hr 01/20/18 01/20/18 01/20/18 07:44 07:55 08:00 Temperature 97.6 F Pulse Rate 66 58 Respiratory 16 20 16 Rate Blood Pressure 177/73 (mmHg) O2 Sat by Pulse 96 94 Oximetry 01/20/18 11:19 Temperature 98.5 F Pulse Rate 66 Respiratory 16 Rate Blood Pressure 141/68 (mmHg) O2 Sat by Pulse 95 Oximetry Oxygen Devices in Use Now: None Appearance: NAD, initially asleep. Ears/Nose/Mouth/Throat: NL Teeth, Lips, Gums, Mucous Membranes Moist Neck: NL Appearance and Movements; NL JVP Respiratory: Symmetrical Chest Expansion and Respiratory Effort, Clear to Auscultation Cardiovascular: - - irregularly irregular, ANA LUISA LUSB Abdominal: NL Sounds; No Tenderness; No Distention, No Hepatosplenomegaly Extremities: No Edema Skin: No Rash or Ulcers Neurological: Alert and Oriented x 3, NL Sensation, NL Muscle Strength and Tone , - - short term memory decreased. Nutrition: Taking PO's Result Diagrams: 01/20/18 06:43 01/20/18 06:43 Additional Lab and Data: Laboratory Results - last 24 hr 01/20/18 01/20/18 01/20/18 06:43 06:43 06:43 WBC 8.8 RBC 3.83 L Hgb 11.3 L Hct 34 L MCV 88 MCH 30 MCHC 34 RDW 19 H Plt Count 236 MPV 7.4 Neut % (Auto) 82.5 Lymph % (Auto) 9.4 L [place] % (Auto) 7.7 H Eos % (Auto) 0.1 Baso % (Auto) 0.3 Absolute Neuts (auto) 7.3 Absolute Lymphs (auto) 0.8 L Absolute Monos (auto) 0.7 Absolute Eos (auto) 0 Absolute Basos (auto) 0 Absolute Nucleated RBC 0 Nucleated RBC % 0.1 ESR 50 H Sodium 140 Potassium 3.4 L Chloride 106 Carbon Dioxide 26 Anion Gap 8 BUN 25 H Creatinine 0.66 Est GFR ( Amer) 102.3 Est GFR (Non-Af Amer) 84.5 BUN/Creatinine Ratio 37.9 H Glucose 112 H Calcium 8.6 Total Bilirubin 0.60 AST 17 ALT 14 Alkaline Phosphatase 67 Troponin I 0.21 H* C-Reactive Protein 7.02 B-Natriuretic Peptide 1163 H Total Protein 7.0 Albumin 3.5 Globulin 3.5 Albumin/Globulin Ratio 1.0 Digoxin 3.2 H* Diagnostic Imaging: Patient Name: SHERIF BALLESTEROS Medical Record#: [id number] Ordering Physician: Cortez Muñiz MD Acct.#: [id number] : 1930 Age: 87 Sex: F Location: EMERGENCY DEPARTMENT Exam Date: 01/18/18 1042 ADM Status: REG ER Order Information: CHEST PA & LAT 2 VWS Accession Number: [id number] CPT: 66441 INDICATION: Short of breath COMPARISON: November 15, 2017 TECHNIQUE: PA and lateral dual-energy views were obtained. FINDINGS: Bones/Soft Tissues: There are no acute bony findings. There is left-sided cardiac pacemaker. Cardiomediastinal: The heart is normal in size. The central pulmonary vessels remain prominent. Lungs: There is hyperinflation with diffuse interstitial and alveolar edema. There is improvement in the degree of alveolar change. Pleura: There are bilateral effusions. Other: None IMPRESSION: INTERSTITIAL AND ALVEOLAR EDEMA WITH INTERVAL IMPROVEMENT. BILATERAL EFFUSIONS. <Electronically signed by Mateusz Caldera MD in OV> 01/18/18 1223 Dictated By: Mateusz Caldera MD Dictated Date/Time: 01/18/18 1223 Transcribed Date/Time: 01/18/18 1221 Copy to: Assess/Plan/Problems-Billing Assessment: 87 year old female PMH of a-fib, systolic CHF, mod-severe TVR, COPD, HTN, MGUS that presented with epigastric pain and hypoxia. Acute on chronic congestive heart failure, likely tachycardia related. Worsened EF. NSTEMI (LBBB). Improved with digoxin and lasix. - Patient Problems (1) Systolic CHF, acute on chronic Current Visit: No Status: Acute Code(s): I50.23 - ACUTE ON CHRONIC SYSTOLIC (CONGESTIVE) HEART FAILURE SNOMED Code(s): 181227587 Comment: - improved back to room air with diuresis. - Daily weights, strict I&Os - Lasix 20mg IV daily (home is lasix 20mg daily). - appreciate cardiology recs - ECHO with worse EF to 25%, mod-severe TVR. Concern for tachycardia mediated. ( down from 35-40%). with NSTEMI and epigastric pain so may have ischemic component. Consideration for BiV ICD per cardiology. Given Hx MGUS, SPEP drawn to evaluate for amyloidosis. - BNP >1000 - continue atenolol 25mg BID. Dilt stopped( can use amlodipine if HTN worsens. Lisinopril uptitrating. Aldactone added. (2) Acute respiratory failure with hypoxia Current Visit: No Status: Acute Code(s): J96.01 - ACUTE RESPIRATORY FAILURE WITH HYPOXIA SNOMED Code(s): 33964886 Comment: Secondary to acute systolic CHF (3) MGUS (monoclonal gammopathy of unknown significance) Current Visit: Yes Status: Acute Code(s): D47.2 - MONOCLONAL GAMMOPATHY SNOMED Code(s): 356332248 Comment: f/u SPEP. Last was Feb 2017 with M-spike. Follows with Dr. Flores. (4) Atrial fibrillation with RVR Current Visit: No Status: Acute Priority: Medium Onset Date: 09/30/14 Code(s): I48.91 - UNSPECIFIED ATRIAL FIBRILLATION SNOMED Code(s): 708733446833447 Comment: - Appreciate cardiology recs. - Was in RVR on admission - continue atenolol. Dilt has been stopped given EF to 25% - digoxin started, monitor level (this AM was elevated to 3.2 but drawn 90 minutes after last loading dose. Goal 0.8-1.0. monitor daily. hold additional digoxin for now. - Remains in afib on tele, rates much better controlled. - continue AC and follow INR, goal 2-3, coumadin held last night, restart at 3mg tonight (From 4mg home) (5) HTN (hypertension) Current Visit: No Status: Acute Code(s): I10 - ESSENTIAL (PRIMARY) HYPERTENSION SNOMED Code(s): 84194854 Comment: BP is controlled. Continue current regimen. (6) COPD (chronic obstructive pulmonary disease) Current Visit: No Status: Chronic Code(s): J44.9 - CHRONIC OBSTRUCTIVE PULMONARY DISEASE, UNSPECIFIED SNOMED Code(s): 14783454 Comment: - continue home regimen, supportive O2 and nebs - SOB seems more exacerbation of CHF rather than COPD Status and Disposition: medicine inpatient.
[2018-01-20] MEDS ORDERED: Warfarin TAB(*) 3 MG PO SCH (17:00)
[2018-01-20] MEDS: Atorvastatin* 10 MG TAB PO SCH (21:14)
[2018-01-20] MEDS: Lisinopril TAB* 5 MG PO SCH (21:15)
[2018-01-20] MEDS: Melatonin 3 MG TAB PO SCH (21:15)
[2018-01-21] MEDS: Levothyroxine TAB* 50 MCG TAB PO SCH (05:11)
[2018-01-21 07:50] LABS: INR 1.79 (0.77-1.02)
[2018-01-21] MEDS: Lisinopril TAB* 5 MG PO SCH (09:00)
[2018-01-21] MEDS: Atenolol TAB* 25 MG PO SCH (09:00)
[2018-01-21] MEDS: Potassium Chlor TAB* 20 MEQ TAB.ER PO SCH (09:01)
[2018-01-21] MEDS: Citalopram TAB* 20 MG PO SCH (09:01)
[2018-01-21] MEDS: Timolol 0.5% OPTH.SOL* BTL RIGHT EYE SCH (09:01)
[2018-01-21] MEDS: Folic Acid TAB* 1 MG PO SCH (09:01)
[2018-01-21] MEDS: Spironolactone TAB* 25 MG PO SCH (09:01)
[2018-01-21] MEDS: Mometasone/Formoter 200/5 MDI INH SCH (09:09)
[2018-01-21] MEDS: Tiotropium CAP.INH* CAP.INH/18 MCG (USE ORDER SET !) INH SCH (09:09)
[2018-01-21] MEDS ORDERED: Lisinopril TAB* 5 MG PO ONE (09:12)
[2018-01-21] MEDS ORDERED: Furosemide TAB* 20 MG PO SCH (10:00)
[2018-01-21 15:57] VITALS: BP 119/58
[2018-01-21] MEDS ORDERED: Lisinopril TAB* 5 MG PO SCH ×2 (21:00)
--- NOTE | 2018-01-22 03:57 | DS ---
DISCHARGE SUMMARY: DATE OF ADMISSION: 01/18/18. DATE OF DISCHARGE: 01/21/18. ADMITTING PROVIDER: GWEN Thomas. PRIMARY CARE PHYSICIAN: Glenys Das MD. OUTPATIENT CASINO OPERATIONS SUPERVISOR: Vijay Paula MD. OUTPATIENT HEMATOLOGY/ONCOLOGIST: Susannah Flores MD. CHIEF COMPLAINT: Shortness of breath. PRINCIPAL DIAGNOSES: 1. Acute on chronic systolic congestive heart failure. 2. Atrial fibrillation with rapid ventricular response. 3. Hypoxic respiratory failure. 4. Ter-KB-lgjnurlhn myocardial infarction. 5. Severe tricuspid regurgitation. HISTORY OF PRESENT ILLNESS/HOSPITAL COURSE: Betty Holloway is an 87-year-old female with past medical history significant for atrial fibrillation on Coumadin , CVA, hypertension, hyperlipidemia, GERD, COPD, glaucoma, systolic congestive heart failure, T12 compression fracture, who presented with hypoxia at home with shortness of breath. She recently had an admission between 11/15/17 and with multifocal pneumonia and had been recuperating at [facility] before returning home. Please see H&P of Bushra Reynoso for full details , but briefly she, "was not breathing right for several weeks" with occasional shortness of breath worse in the morning, dry, non-productive cough. No fever, chills, wheezing. On evaluation in the emergency room she had elevated BNP of 1270. Chest x-ray demonstrated pulmonary edema, troponin of 0.32. Her EKGs were her baseline left bundle branch block. She was admitted for hypoxic respiratory failure secondary to suspected acute congestive heart failure. Her AFib was noticed to be not well controlled with heart rates in 110-120s, and Dr. Jefferson of Cardiology was consulted. She had an echocardiogram on hospital day #2, which showed worsening ejection fraction now 25 to 30% (closer to 25%) from previous 35-40% in October 2017) with evidence of marked, severe tricuspid regurgitation, moderate mitral regurgitation, moderate aortic stenosis, mild aortic regurgitation, mild- to- moderate pulmonary hypertension with RVSP of 52 mmHg. Her troponins down trended throughout admission. On day of discharge, it was 0.21. Dr. Jefferson suggested stopping her home diltiazem given the reduced ejection fraction. She was continued on atenolol and loaded with IV digoxin, she received total of 0.75 mg on hospital day #2. Her digoxin level on the day of discharge was 1.4. Her INR was 3.48 on admission and Coumadin 4 mg was held, INR down trended to 2.86 on hospital day #2 (coumadin restarted at reduced 3 mg that night), on day of discharge INR is 1.79. Her blood pressures were initially elevated to the 170s and Dr. Jefferson increased her lisinopril to 2.5 mg twice a day from once a day, spironolactone 25 mg a day was also added, given her worsening systolic function. She required IV Lasix 20 mg initially and soon came off supplemental oxygen with peak need of 6 L per minute. For the last 2 days, she has been on room air. Given the initiation of spironolactone, Dr. Jefferson recommending cessation of her prior potassium supplementation. She worked with physical therapy, was able to ambulate with her walker at baseline and was assessed to not require further rehabilitation stay. She requires close followup with Dr. Das and Dr. Vijay Paula for INR check and digoxin level check, electrolyte check, blood pressure check within the next 3 to 5 days from discharge. Of note , she has history of myoclonal gammopathy of uncertain significance, which she follows with Dr. Flores. Dr. Jefferson spoke with Dr. Flores and they have drawn a serum protein electrophoresis, which is still pending with concern of possible amyloidosis as an etiology that could be contributing to her worsening heart failure. 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 DISCHARGE MEDICATIONS: Include: 1. Albuterol 1 to 2 puffs inhaled q.4 hours p.r.n. 2. Atenolol 25 mg p.o. b.i.d. 3. Tessalon 100 mg p.o. t.i.d. 4. Lexapro 10 mg p.o. daily. 5. Folic acid 1 mg p.o. daily. 6. Guaifenesin 5mg p.o. q.6 hours p.r.n. cough. 7. Synthroid 50 mcg p.o. daily. 8. Melatonin 1.5 mg p.o. at bed time. 9. Dulera 2 puffs inhaled b.i.d. 10. MiraLAX 17 g p.o. daily. 11. Simvastatin 20 mg p.o. q.h.s. 12. Timolol 1 drop right eye b.i.d. 13. Spiriva 1 capsule inhaled q.a.m. 14. Acetaminophen 650 mg p.o. q.4 hours p.r.n. 15. Align 4 mg p.o. daily. 16. Calcium, D3, Mag-Ox, copper, magnesium, zinc supplementation 1 tab p.o. b.i.d. 17. Prolia 60 mg IM every 6 months. 18. Digoxin 0.125 mg daily (new) to start on 01/22/18. 19. Lasix 20 mg p.o. daily. 20. Lisinopril 2.5 mg p.o. b.i.d. (increased from once a day). 21. Spironolactone 25 mg p.o. daily (new). 22. Warfarin 4 mg p.o. daily. DISCHARGE DIET: Heart healthy. RESTRICTIONS: None. FOLLOWUP: Follow up with Dr. Das and Dr. Vijay Paula within 3 to [address] days of discharge and Dr[address] Susannah Flores within 1 to 2 weeks of discharge. She should have INR, BMP, and digoxin level checked. TIME SPENT ON DISCHARGE: 40 minutes. [id number]/[facility] #: [id number] ISHAN
[2018-01-23] MEDS ORDERED: Furosemide TAB* 20 MG PO SCH (09:00)
== END 2018-01-21 16:28 | disposition home or self-care (01) | DRG 291 ==
LOC: ED 10:34 → MEDTELE 12:52
PROVIDERS: ADMIT Hospitalist; ATTEND Internal Medicine
DX: I11.0 Hypertensive heart disease with heart failure (principal); J96.01 Acute respiratory failure with hypoxia; F33.9 Major depressive disorder, recurrent, unspecified; I50.23 Acute on chronic systolic (congestive) heart failure; I48.91 Unspecified atrial fibrillation; E78.5 Hyperlipidemia, unspecified; K21.9 Gastro-esophageal reflux disease without esophagitis; J44.9 Chronic obstructive pulmonary disease, unspecified; H40.9 Unspecified glaucoma; I08.3 Combined rheumatic disorders of mitral, aortic and tricuspid valves; I27.20 Pulmonary hypertension, unspecified; Z66 Do not resuscitate; I44.7 Left bundle-branch block, unspecified; E03.9 Hypothyroidism, unspecified; H54.40 Blindness, one eye, unspecified eye; M48.54XD Collapsed vertebra, not elsewhere classified, thoracic region, subsequent encounter for fracture with routine healing; R91.8 Other nonspecific abnormal finding of lung field; D47.2 Monoclonal gammopathy; Z95.810 Presence of automatic (implantable) cardiac defibrillator; Z86.73 Personal history of transient ischemic attack (TIA), and cerebral infarction without residual deficits; Z85.828 Personal history of other malignant neoplasm of skin; Z79.01 Long term (current) use of anticoagulants; Z79.1 Long term (current) use of non-steroidal anti-inflammatories (NSAID); Z79.899 Other long term (current) drug therapy; Z88.2 Allergy status to sulfonamides; Z88.8 Allergy status to other drugs, medicaments and biological substances; Z88.1 Allergy status to other antibiotic agents; Z91.011 Allergy to milk products; Z82.49 Family history of ischemic heart disease and other diseases of the circulatory system; Z80.9 Family history of malignant neoplasm, unspecified; Z87.891 Personal history of nicotine dependence
CPT/HCPCS: 36415; 71046; 80048; 80053; 80162; 81003; 82550; 82553; 83605; 83880; 84155; 84165; 84484; 85025; 85610; 85652; 86140; 93005; 93306; 94640; 99284; A9270-GY; G8978-GP-CL; G8979-GP-CK; J1160; J1940; J2930